=== PATIENT | female | born 1995 | race Caucasian/White ===

== ENCOUNTER 2020-06-29 05:23 | Emergency (ER) | payer OTHER, SELFPAY ==
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
== END 2020-06-29 05:40 | disposition left against medical advice (07) ==
PROVIDERS: Emergency Provider Emergency Medicine Emergency Medical Services
DX: R10.9 Unspecified abdominal pain (principal)

== ENCOUNTER 2020-07-01 02:27 | Emergency (ER) | payer OTHER, SELFPAY ==
[2020-07-01 02:38] VITALS: PULSE 88; PULSE 91; RESP 18; TEMP 36.7; O2SAT 96; O2SAT 98; BMI 18.5
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
[2020-07-01 02:57] VITALS: BP 102/56; PULSE 91; RESP 17; TEMP 36.7; O2SAT 98
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
[2020-07-01 04:00] VITALS: RESP 18
[2020-07-01 06:00] VITALS: BP 110/56; PULSE 68; RESP 18; TEMP 37.1; O2SAT 98
--- NOTE | 2020-07-01 07:04 | PC.NURSE ---
Report recieved. Pt currently sleeping, respirations even and unlabored, in no apparent distress. Pt waiting to be seen by N.
[2020-07-01 07:39] LABS: Glucose Urine UA NEG (NEG); Leukocyte Esterase Urine NEG (NEG); Nitrite Urine NEG (NEG); Specific Gravity - Urine 1.025 (1.005-1.025); Urine Blood NEG (NEG); Urine Ketones NEG (NEG); Urine Protein NEG (NEG-TRACE)
[2020-07-01 07:40] LABS: Appearance Urine CLOUDY; Color Urine YELLOW
[2020-07-01 07:41] LABS: UPreg QC Valid YES; Urine Pregnancy NEGATIVE (NEGATIVE)
[2020-07-01 08:05] LABS: Amphetamine Screen Urine Not Detected (Not Detect); Barbiturates, Urine Not Detected (Not Detect); Benzodiazepines Screen Urine Not Detected (Not Detect); Cannabinoid Screen Urine POSITIVE (Not Detect); Cocaine Screen Urine POSITIVE (Not Detect); Opiate Screen Urine POSITIVE (Not Detect); Phencyclidine Screen Urine Not Detected (Not Detect)
[2020-07-01 09:02] VITALS: BP 127/59; PULSE 90; RESP 18; TEMP 37.2; O2SAT 99
[2020-07-01 09:20] VITALS: BP 127/60; PULSE 90
[2020-07-01] MEDS: OXcarbazepine 300 MG TABLET PO (09:20)
[2020-07-01] MEDS: cloNIDine HCL 0.1 MG TABLET PO (09:20)
--- NOTE | 2020-07-01 10:40 | PC.NURSE ---
Pt asking when she will be seen, explained that N is reporting they are on their way. Pt stating that she only said she was suicidal so that she would have a place to sleep last night. Pt denying SI at this time.
[2020-07-01] MEDS: Nicotine 21 MG PATCH.TD24 TRANSDERMA (10:50)
== END 2020-07-01 14:24 | disposition home or self-care (01) ==
PROVIDERS: Emergency Provider Emergency Medicine
DX: F33.1 Major depressive disorder, recurrent, moderate (principal); R45.851 Suicidal ideations; F11.90 Opioid use, unspecified, uncomplicated; F17.200 Nicotine dependence, unspecified, uncomplicated; Z71.6 Tobacco abuse counseling; Z79.899 Other long term (current) drug therapy
CPT/HCPCS: 80307; 81003; 81025; 99285

== ENCOUNTER 2020-10-19 17:44 | Emergency (ER) | payer OTHER, SELFPAY ==
[2020-10-19 17:47] VITALS: BP 107/56; PULSE 90; RESP 16; TEMP 36.2; O2SAT 97; BMI 17.9
--- NOTE | 2020-10-19 17:58 | PC.NURSE ---
pt arrived, was registered and triaged and then states she does not want to wait and left without being seen.
== END 2020-10-19 17:59 | disposition left against medical advice (07) ==
LOC: HO.ED 17:57
PROVIDERS: Emergency Provider Internal Medicine; PCP Nurse Practitioner Family
DX: Z20.2 Contact with and (suspected) exposure to infections with a predominantly sexual mode of transmission (principal)
CPT/HCPCS: 99282

== ENCOUNTER 2021-05-08 21:14 | Emergency (ER) | payer OTHER, SELFPAY ==
[2021-05-08 22:28] VITALS: BP 108/53; PULSE 65; RESP 16; TEMP 36.2; O2SAT 97; BMI 23.4
[2021-05-08 22:47] LABS: Appearance Urine CLEAR; Color Urine YELLOW; Glucose Urine UA NEG (NEG); Leukocyte Esterase Urine TRACE (NEG); Nitrite Urine NEG (NEG); Specific Gravity - Urine >= 1.030 (1.005-1.025); UACC Culture Trigger YES; Urine Blood 3+ (NEG); Urine Ketones 5 MG/DL (NEG); Urine Protein 1+ MG/DL (NEG-TRACE)
[2021-05-08 23:08] LABS: Squamous Epithelial Cell Urine 2+ /LPF
[2021-05-08 23:09] LABS: Bacteria Urine TRACE /LPF
[2021-05-08 23:10] LABS: Mucus Urine TRACE /LPF
[2021-05-09] MEDS: cefTRIAXone sodium 500 MG, Lidocaine HCl 1 % MPF 1 ML IM (00:05)
[2021-05-09 01:42] LABS: CT PCR NOT DETECTED (Not Detect.); NG PCR DETECTED (Not Detect.)
--- NOTE | 2021-05-13 | ECG_ITS ---
Test Reason : MEDCLEARANCE Blood Pressure : / mmHG Vent. Rate : 078 BPM Atrial Rate : 078 BPM P-R Int : 132 ms QRS Dur : 098 ms QT Int : 366 ms P-R-T Axes : -16 079 048 degrees QTc Int : 417 ms Normal sinus rhythm Possible Lateral infarct (cited on or before 25-FEB-2020) Abnormal ECG When compared with ECG of 13-MAY-2021 14:10, Sinus rhythm has replaced Ectopic atrial rhythm Referred By: Chalo Beltran Electronically Signed By:JANAK FOLEY
--- NOTE | 2021-05-13 09:00 | ECG_ITS ---
Test Reason : MEDCLEARANCE Blood Pressure : / mmHG Vent. Rate : 077 BPM Atrial Rate : 077 BPM P-R Int : 128 ms QRS Dur : 096 ms QT Int : 368 ms P-R-T Axes : -51 081 056 degrees QTc Int : 416 ms Unusual P axis, possible ectopic atrial rhythm Possible Lateral infarct (cited on or before 25-FEB-2020) Abnormal ECG When compared with ECG of 25-FEB-2020 20:38, Ectopic atrial rhythm has replaced Sinus rhythm Referred By: Chalo Beltran Electronically Signed By:JANAK FOLEY
== END 2021-05-09 00:10 | disposition home or self-care (01) ==
PROVIDERS: Emergency Provider Internal Medicine
DX: R10.2 Pelvic and perineal pain (principal); Z20.2 Contact with and (suspected) exposure to infections with a predominantly sexual mode of transmission
CPT/HCPCS: 81001; 81003; 87086; 87491; 87591; 93005; 96372; 99284; J0696

== ENCOUNTER 2021-05-12 13:17 | Inpatient (IN) | payer OTHER, SELFPAY ==
[2021-05-12 14:17] VITALS: BMI 19.2
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
[2021-05-12 15:11] VITALS: BP 96/50; PULSE 75; RESP 16; TEMP 37.7; O2SAT 96
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
[2021-05-12 15:52] LABS: COVID-19 Test Negative (Negative); IDNOW Serial# 9DD0AD1C
--- NOTE | 2021-05-12 16:05 | ED_ITS ---
HPI - Psych General Chief Complaint: ETOH/Substance Use <PUSHPA Whaley - Last Filed: 05/13/21 01:20> Stated Complaint: ?Dehydrated <PUSHPA Whaley - Last Filed: 05/13/21 01:20> Time Seen by Provider: 05/12/21 14:56 <PUSHPA Whaley Last Filed: 05/13/21 01:20> Source: patient <PUSHPA Whaley - Last Filed: 05/13/21 01:20> Mode of arrival: ambulatory <PUSHPA Whaley Last Filed: 05/13/21 01:20> Limitations: no limitations <PUSHPA Whaley Last Filed: 05/13/21 01:20> History of Present Illness HPI Narrative: Patient sent by the grandmother to be evaluated for detox. Patient states she was sent for detox from heroin. Your states she was informed that patient is sent self-harm a threat to mother. Patient denies this. Patient denies any physical complaints. I was informed by calling PUSHPA Pollard the patient positive gonorrhea and has never been treated. Spoke with patient about history of gonorrhea patient unaware of the diagnosis and denies ever taking Macrobid or gonorrhea. Patient presently is asymptomatic. Patient denies any suicidal or homicidal ideation. <PUSHPA Whaley - Last Filed: 05/13/21 01:20> Related Data Home Medications: Previous Rx's Medication Instructions Recorded clonidine HCl 0.1 mg tablet 0.1 mg PO TID PRN 30 Days #90 tab 05/15/21 doxycycline hyclate 100 mg tablet 100 mg PO BID 5 Days #10 tab 05/15/21 hydroxyzine HCl 25 mg tablet 25 mg PO TID PRN 30 Days #90 tab 05/15/21 melatonin 3 mg tablet 9 mg PO BEDTIME 30 Days #90 tab 05/15/21 mirtazapine 15 mg tablet 15 mg PO BEDTIME 30 Days #30 tab 05/15/21 nitrofurantoin 100 mg PO BID 5 Days #10 cap 05/15/21 monohydrate/macrocrystals 100 mg capsule quetiapine 200 mg tablet 200 mg PO BEDTIME PRN 30 Days #30 05/15/21 tab trazodone 50 mg tablet 50 mg PO BEDTIME 30 Days #30 tab 05/15/21 <PUSHPA Whaley Last Filed: 05/13/21 01:20> Allergies/Adverse Reactions: Allergies Allergy/AdvReac Type Severity Reaction Status Date / Time orange [ORANGES] Allergy Intermediate HIVES Verified 07/01/20 02:36 seafood AdvReac Anaphylaxis Verified 07/01/20 02:36 <PUSHPA Whaley Last Filed: 05/13/21 01:20> Review of Systems Constitutional: Constitutional: Reports as per HPI and Reports no additional constitutional complaints <PUSHPA Whaley Last Filed: 05/13/21 01:20> Eyes: Eyes: Reports as per HPI and Reports no additional eye complaints <PUSHPA Whaley Last Filed: 05/13/21 01:20> ENT: Reports system reviewed and no additional complaints, except as documented and Reports as per HPI <PUSHPA Whaley Last Filed: 05/13/21 01:20> Cardiovascular: Cardiovascular: Reports as per HPI and Reports no additional cardiovascular complaints <PUSHPA Whaley Last Filed: 05/13/21 01:20> Respiratory: Respiratory: Reports as per HPI and Reports no additional respiratory complaints <PUSHPA Whaley Last Filed: 05/13/21 01:20> Gastrointestinal: Gastrointestinal: Reports as per HPI and Reports no additional gastrointestinal complaints <PUSHPA Whaley Last Filed: 05/13/21 01:20> Genitourinary: Genitourinary: Reports no additional female genitourinary complaints and Reports as per HPI <PUSHPA Whaley Last Filed: 05/13/21 01:20> Musculoskeletal: Musculoskeletal: Reports no additional musculoskeletal complaints and Reports as per HPI <PUSHPA Whaley Last Filed: 05/13/21 01:20> Neurologic: Reports system reviewed and no additional complaints, except as documented and Reports as per HPI <PUSHPA Whaley Last Filed: 05/13/21 01:20> Psychiatric: Psychiatric: Reports no additional psychiatric complaints and Reports as per HPI <PUSHPA Whaley Last Filed: 05/13/21 01:20> PMFSH Past Medical History Medical History: Medical History Anxiety Asthma Bipolar affective Depression PTSD (post-traumatic stress disorder) <PUSHPA Whaley - Last Filed: 05/13/21 01:20> Social History Social History: Social History Household Members: Significant Other Household Members Other:: fiance Housing: Homeless Housing Other:: I live with my fivianca. We don't have an apartment. I am not homeless Do you presently have visiting nurse or other home services: No Alcohol intake: never Patient Tobacco Use Status: Current everyday Tobacco user Tobacco use type: Cigarette Cigarette Packs Per Day: 1 Cigarettes Per Day: 20.0 Years Smoked: 11 Smoked in Last 30 Days: Yes Patient Interested in Nicotine Replacement: Yes Patient Given Instructions on How to Stop Smoking: Yes Date Education Initiated: 05/13/21 Second Hand Smoke Exposure: Yes Use of substances other than those prescribed or required for medical reasons: No Substance Use Type: Crack/Cocaine, Heroin and Marijuana Substance Use Frequency: Occasionally Last Used Substance: Days (ago) Last Used Substance Other:: 2 days ago used 7 bags of heroin Currently Displaying Signs/Symptoms of Drug Intoxication Withdrawal: No Other Past Substance Use Problem:: 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 If so, by whom?: No Do you feel safe in your current relationship?: Yes Is there a partner from a previous relationship who is making you feel unsafe now?: No Are you made to feel afraid or neglected: No Spiritual Healthcare Practices: [facility] Advance Directives: No Advance Directives Information Provided: No Do you have thoughts of harming others: None Do you have a plan to hurt others: No Plan Recently lost weight without trying: Unsure How much weight loss: Unsure Eating poorly because of decreased appetite: Yes Nutrition screen score: 5 Patient : No : No Poor oral hygiene: No service: No Sexual orientation: Don't Know <PUSHPA Whaley - Last Filed: 05/13/21 01:20> Physical Exam Vital Signs: Vital Signs: Last Vital Signs Temp 98.5 F 05/15/21 10:30 Pulse 98 05/15/21 10:30 Resp 17 05/15/21 10:30 BP 115/57 L 05/15/21 10:30 Pulse Ox 100 05/15/21 10:30 Body Mass Index 19.2 <PUSHPA Whaley - Last Filed: 05/13/21 01:20> Vital Signs: Last Vital Signs Temp 98.5 F 05/15/21 10:30 Pulse 98 05/15/21 10:30 Resp 17 05/15/21 10:30 BP 115/57 L 05/15/21 10:30 Pulse Ox 100 05/15/21 10:30 Body Mass Index 19.2 <Allan Goodman MD - Last Filed: 05/20/21 17:22> Vital Signs: Last Vital Signs Temp 98.5 F 05/15/21 10:30 Pulse 98 05/15/21 10:30 Resp 17 05/15/21 10:30 BP 115/57 L 05/15/21 10:30 Pulse Ox 100 05/15/21 10:30 Body Mass Index 19.2 <Candace Mcknight DO - Last Filed: 05/13/21 07:56> Const: General: cooperative, healthy appearing, comfortable, no acute distress, well developed, alert, awake and Physically active <PUSHPA Whaley - Last Filed: 05/13/21 01:20> Orientation/consciousness: patient oriented x3 <PUSHPA Whaley Last Filed: 05/13/21 01:20> HENMT: Head: Yes normal to inspection, Yes No palpable skull fracture present, Yes normocephalic, Yes atraumatic and No abrasion <PUSHPA Whaley - Last Filed: 05/13/21 01:20> Eyes: General: appearance normal, both eyes and all related structures <PUSHPA Whaley Last Filed: 05/13/21 01:20> Neck: Neck: Yes normal visual inspection, Yes full ROM, Yes no lymphadenopathy, Yes no meningeal signs, Yes trachea midline, Yes supple and No tender <PUSHPA Whaley Last Filed: 05/13/21 01:20> Chest: Chest palpation & inspection: normal inspection of the chest and normal palpation of entire chest wall <PUSHPA Whaley Last Filed: 05/13/21 01:20> Resp: Effort & Inspection: normal respiratory effort and able to speak in complete sentences <PUSHPA Whaley Last Filed: 05/13/21 01:20> Cardio: Jugular venous distension: no JVD <PUSHPA Whaley Last Filed: 05/13/21 01:20> Heart sounds: S1 normal heart sound present and S2 normal heart sound present <PUSHPA Whaley Last Filed: 05/13/21 01:20> GI: Inspection: Yes normal to inspection and No abdominal wall ecchymosis <PUSHPA Whaley Last Filed: 05/13/21 01:20> Palpation (GI): Soft to palpation, not firm, nontender, no guarding and not rigid <PUSHPA Whaley Last Filed: 05/13/21 01:20> : General: No CVA tenderness and Yes no CVA tenderness <PUSHPA Whaley Last Filed: 05/13/21 01:20> Back/Spine/Pelvis: Back: no CVA tenderness, No CVA tenderness and No back tenderness <PUSHPA Whaley Last Filed: 05/13/21 01:20> Skin: General skin exam: no rashes or lesions noted and elasticity normal <PUSHPA Whaley Last Filed: 05/13/21 01:20> Neuro: General: patient oriented x3, gait normal, no meningeal signs and CN's II-XI intact bilaterally <PUSHPA Whaley Last Filed: 05/13/21 01:20> Cranial nerves: Yes CN's II-XII intact bilaterally <PUSHPA Whaley Last Filed: 05/13/21 01:20> Extrem: General: Yes normal to inspection and Yes full ROM <PUSHPA Whaley Last Filed: 05/13/21 01:20> Psych: Appearance: grossly normal, well kempt and not disheveled <PUSHPA Whaley Last Filed: 05/13/21 01:20> Course Course Course Narrative: UA DS ordered. Patient to have COVID swab. Return crisis sent. <PUSHPA Whaley Last Filed: 05/13/21 01:20> Reevaluation(s) Reevaluation #1: head field hockey coach went to speak to patient, but patient refused to be valuable by silver recovery operator and requesting [facility] evaluation. <PUSHPA Whaley Last Filed: 05/13/21 01:20> Time: 18:15 <PUSHPA Whaley - Last Filed: 05/13/21 01:20> Reevaluation #2: Patient evaluated by [facility] recommends inpatient psych admission. Labs to be ordered <PUSHPA Whaley - Last Filed: 05/13/21 01:20> Time: 01:18 <PUSHPA Whaley - Last Filed: 05/13/21 01:20> MDM - Psych MDM Narrative Medical decision making narrative: Depression. <PUSHPA Whaley - Last Filed: 05/13/21 01:20> Lab Data Labs: Lab Results 05/12/21 05/12/21 05/12/21 Range/Units 15:25 19:13 19:13 Urine Color YELLOW Urine Appearance HAZY Urine pH 6.0 (5.0-8.0) Ur Specific [place] >= 1.030 H (1.005-1.025) Urine Protein NEG (NEG-TRACE) MG/DL Urine Glucose (UA) NEG (NEG) MG/DL Urine Ketones NEG (NEG) MG/DL Urine Blood NEG (NEG) Urine Nitrite NEG (NEG) Ur Leukocyte Esterase NEG (NEG) Urine Test (NEGATIVE) Urine Opiates Screen Not Detected (Not Detect) Urine Fentanyl Screen POSITIVE H (Not Detect) Ur Barbiturates Screen Not Detected (Not Detect) Ur Phencyclidine Scrn Not Detected (Not Detect) Ur Amphetamines Screen Not Detected (Not Detect) U Benzodiazepines Scrn Not Detected (Not Detect) Urine Cocaine Screen POSITIVE H (Not Detect) U Marijuana (THC) Screen POSITIVE H (Not Detect) COVID-19 (KAYLAN) Negative (Negative) COVID-19 Clin Com See Note 05/12/21 Range/Units 19:13 Urine Color Urine Appearance Urine pH (5.0-8.0) Ur Specific [place] (1.005-1.025) Urine Protein (NEG-TRACE) MG/DL Urine Glucose (UA) (NEG) MG/DL Urine Ketones (NEG) MG/DL Urine Blood (NEG) Urine Nitrite (NEG) Ur Leukocyte Esterase (NEG) Urine Test NEGATIVE (NEGATIVE) Urine Opiates Screen (Not Detect) Urine Fentanyl Screen (Not Detect) Ur Barbiturates Screen (Not Detect) Ur Phencyclidine Scrn (Not Detect) Ur Amphetamines Screen (Not Detect) U Benzodiazepines Scrn (Not Detect) Urine Cocaine Screen (Not Detect) U Marijuana (THC) Screen (Not Detect) COVID-19 (KAYLAN) (Negative) COVID-19 Clin Com <PUSHPA Whaley - Last Filed: 05/13/21 01:20> Lab Results 05/12/21 05/12/21 05/12/21 Range/Units 15:25 19:13 19:13 Urine Color YELLOW Urine Appearance HAZY Urine pH 6.0 (5.0-8.0) Ur Specific [place] >= 1.030 H (1.005-1.025) Urine Protein NEG (NEG-TRACE) MG/DL Urine Glucose (UA) NEG (NEG) MG/DL Urine Ketones NEG (NEG) MG/DL Urine Blood NEG (NEG) Urine Nitrite NEG (NEG) Ur Leukocyte Esterase NEG (NEG) Urine Test (NEGATIVE) Urine Opiates Screen Not Detected (Not Detect) Urine Fentanyl Screen POSITIVE H (Not Detect) Ur Barbiturates Screen Not Detected (Not Detect) Ur Phencyclidine Scrn Not Detected (Not Detect) Ur Amphetamines Screen Not Detected (Not Detect) U Benzodiazepines Scrn Not Detected (Not Detect) Urine Cocaine Screen POSITIVE H (Not Detect) U Marijuana (THC) Screen POSITIVE H (Not Detect) COVID-19 (KAYLAN) Negative (Negative) COVID-19 Clin Com See Note 05/12/21 Range/Units 19:13 Urine Color Urine Appearance Urine pH (5.0-8.0) Ur Specific [place] (1.005-1.025) Urine Protein (NEG-TRACE) MG/DL Urine Glucose (UA) (NEG) MG/DL Urine Ketones (NEG) MG/DL Urine Blood (NEG) Urine Nitrite (NEG) Ur Leukocyte Esterase (NEG) Urine Test NEGATIVE (NEGATIVE) Urine Opiates Screen (Not Detect) Urine Fentanyl Screen (Not Detect) Ur Barbiturates Screen (Not Detect) Ur Phencyclidine Scrn (Not Detect) Ur Amphetamines Screen (Not Detect) U Benzodiazepines Scrn (Not Detect) Urine Cocaine Screen (Not Detect) U Marijuana (THC) Screen (Not Detect) COVID-19 (KAYLAN) (Negative) COVID-19 Clin Com <Allan Goodman MD - Last Filed: 05/20/21 17:22> Lab Results 05/12/21 05/12/21 05/12/21 Range/Units 15:25 19:13 19:13 Urine Color YELLOW Urine Appearance HAZY Urine pH 6.0 (5.0-8.0) Ur Specific [place] >= 1.030 H (1.005-1.025) Urine Protein NEG (NEG-TRACE) MG/DL Urine Glucose (UA) NEG (NEG) MG/DL Urine Ketones NEG (NEG) MG/DL Urine Blood NEG (NEG) Urine Nitrite NEG (NEG) Ur Leukocyte Esterase NEG (NEG) Urine Test (NEGATIVE) Urine Opiates Screen Not Detected (Not Detect) Urine Fentanyl Screen POSITIVE H (Not Detect) Ur Barbiturates Screen Not Detected (Not Detect) Ur Phencyclidine Scrn Not Detected (Not Detect) Ur Amphetamines Screen Not Detected (Not Detect) U Benzodiazepines Scrn Not Detected (Not Detect) Urine Cocaine Screen POSITIVE H (Not Detect) U Marijuana (THC) Screen POSITIVE H (Not Detect) COVID-19 (KAYLAN) Negative (Negative) COVID-19 Clin Com See Note 05/12/21 Range/Units 19:13 Urine Color Urine Appearance Urine pH (5.0-8.0) Ur Specific [place] (1.005-1.025) Urine Protein (NEG-TRACE) MG/DL Urine Glucose (UA) (NEG) MG/DL Urine Ketones (NEG) MG/DL Urine Blood (NEG) Urine Nitrite (NEG) Ur Leukocyte Esterase (NEG) Urine Test NEGATIVE (NEGATIVE) Urine Opiates Screen (Not Detect) Urine Fentanyl Screen (Not Detect) Ur Barbiturates Screen (Not Detect) Ur Phencyclidine Scrn (Not Detect) Ur Amphetamines Screen (Not Detect) U Benzodiazepines Scrn (Not Detect) Urine Cocaine Screen (Not Detect) U Marijuana (THC) Screen (Not Detect) COVID-19 (KAYLAN) (Negative) COVID-19 Clin Com <Candace Mcknight DO - Last Filed: 05/13/21 07:56> Discharge Plan Discharge Clinical Impression: Depression <PUSHPA Whaley - Last Filed: 05/13/21 01:20> Patient Disposition: Admitted As Inpatient <PUSHPA Whaely - Last Filed: 05/13/21 01:20> Interventions: Admission Worksheet (ED) Last Done: 05/13/21 14:45 <PUSHPA Whaley - Last Filed: 05/13/21 01:20> Discharge Date/Time: 05/13/21 14:46 <PUSHPA Whaley - Last Filed: 05/13/21 01:20>
--- NOTE | 2021-05-12 16:21 | PC.NURSE ---
patient using foul language often while letting her needs be known. patient states she never made self harming statements to parent.
--- NOTE | 2021-05-12 17:16 | MHC.RECOVSUP ---
? Reason for consult Support o Current location: [facility] o Identified substance use concern: Herion <del>-</del> <del>Withdrawal</del> <del>-</del> <del>Seeking</del> <del>ATS</del> <del>(detox)</del> - Support ? Intervention: <del>o</del> <del>ATS</del> <del>bed</del> <del>search</del> <del>started/completed/in</del> <del>process</del> <del>o</del> <del>MAT</del> <del>started</del> <del>or</del> <del>to</del> <del>be</del> <del>started</del> <del>o</del> <del>Community</del> <del>resources</del> <del>provided</del> <del>o</del> <del>Harm</del> <del>reduction</del> <del>discussion</del> ? Plan: <del>o</del> <del>Referral</del> <del>to</del> <del>[facility]</del> <del>o</del> <del>Bed</del> <del>search</del> <del>in</del> <del>progress</del> <del>to</del> <del>o</del> <del>Follow</del> <del>up</del> <del>tomorrow</del> <del>o</del> <del>Patient</del> <del>awaiting</del> <del>crisis</del> <del>evaluation</del> <del>o</del> <del>Patient</del> <del>to</del> <del>follow</del> <del>up</del> <del>with</del> <del>[facility]</del> <del>after</del> <del>discharge</del> ? Additional information: Met with Patient and Refuse Any Service.
--- NOTE | 2021-05-12 17:45 | PC.NURSE ---
patients grandmother called for info, patient declined t/w from speaking to gradmother.
--- NOTE | 2021-05-12 18:21 | PC.NURSE ---
sent second copy of [facility] referral b/c i saw no evidence in my email that first copy was sent
[2021-05-12 19:21] LABS: Appearance Urine HAZY; Color Urine YELLOW; Glucose Urine UA NEG (NEG); Leukocyte Esterase Urine NEG (NEG); Nitrite Urine NEG (NEG); Specific Gravity - Urine >= 1.030 (1.005-1.025); Urine Blood NEG (NEG); Urine Ketones NEG (NEG); Urine Protein NEG (NEG-TRACE)
[2021-05-12 19:24] LABS: UPreg QC Valid YES; Urine Pregnancy NEGATIVE (NEGATIVE)
[2021-05-12 19:46] LABS: Amphetamine Screen Urine Not Detected (Not Detect); Barbiturates, Urine Not Detected (Not Detect); Benzodiazepines Screen Urine Not Detected (Not Detect); Cannabinoid Screen Urine POSITIVE (Not Detect); Cocaine Screen Urine POSITIVE (Not Detect); Fentanyl, urine POSITIVE (Not Detect); Opiate Screen Urine Not Detected (Not Detect); Phencyclidine Screen Urine Not Detected (Not Detect)
[2021-05-13] MEDS: Nitrofurantoin Monohyd/M-Cryst 100 MG CAPSULE PO ×3 (00:14→21:27)
[2021-05-13 06:23] VITALS: BP 106/47; PULSE 73; RESP 15; O2SAT 100
--- NOTE | 2021-05-13 06:34 | PC.NURSE ---
Patient slept through the night, no distress observed/reported, refused blood draw, patient is on antibiotic for positive Gonorrhea and chlamydia, patient was assessed by N, disposition is section 12 inpatient bed search, patient is not happy with her disposition, will continue to monitor.
[2021-05-13 08:42] VITALS: BP 113/63; PULSE 71; RESP 14; TEMP 36.7; O2SAT 97
[2021-05-13] MEDS: LORazepam 1 MG TABLET 2 MG PO ×2 (09:11→14:22)
--- NOTE | 2021-05-13 09:18 | PC.NURSE ---
PT DENIES MAKING SI STATEMENTS TO FAMILY AND IS CURRENTLY SEAKING DETOX
[2021-05-13] MEDS: Acetaminophen 325 MG TABLET 650 MG PO (15:16)
[2021-05-13 15:17] VITALS: BP 112/60; PULSE 95
[2021-05-13] MEDS: hydrOXYzine HCL 25 MG TABLET PO (15:17)
[2021-05-13] MEDS: cloNIDine HCL 0.1 MG TABLET PO (15:17)
[2021-05-13 15:22] VITALS: BP 112/60; PULSE 95; RESP 16; TEMP 36.7; O2SAT 99
[2021-05-13 16:00] VITALS: BP 112/60; PULSE 92; RESP 16; TEMP 36.9; O2SAT 99
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
[2021-05-13] MEDS: Melatonin 3 MG TABLET 9 MG PO (21:28)
[2021-05-13] MEDS: traZODone HCL 50 MG TABLET PO (21:28)
[2021-05-13] MEDS: Mirtazapine 15 MG TABLET PO (21:28)
[2021-05-13] MEDS: QUEtiapine Fumarate 200 MG TABLET PO (21:28)
[2021-05-13 21:38] VITALS: BP 116/56; PULSE 79; TEMP 36.7
[2021-05-14] VITALS (8 sets, daily range): BP systolic 98–112; BP diastolic 52–62; PULSE 72–118; RESP 16–18; TEMP 36.9–37.1; O2SAT 99–100
[2021-05-14] MEDS: cloNIDine HCL 0.1 MG TABLET PO ×4 (04:45→20:07)
[2021-05-14] MEDS: Nicotine 21 MG PATCH.TD24 TRANSDERMA (08:53)
[2021-05-14] MEDS: Nitrofurantoin Monohyd/M-Cryst 100 MG CAPSULE PO ×2 (08:53→20:03)
[2021-05-14] MEDS: Acetaminophen 325 MG TABLET 650 MG PO ×2 (10:00→18:22)
[2021-05-14] MEDS: Loperamide HCl 2 MG CAPSULE PO (10:01)
[2021-05-14] MEDS: methADONE HCl 20 MG/2 ML ORAL.CONC 10 MG PO (14:44)
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
[2021-05-14] MEDS: Mirtazapine 15 MG TABLET PO (20:03)
[2021-05-14] MEDS: Melatonin 3 MG TABLET 9 MG PO (20:03)
[2021-05-14] MEDS: QUEtiapine Fumarate 200 MG TABLET PO (20:07)
[2021-05-14] MEDS: hydrOXYzine HCL 25 MG TABLET PO (20:07)
[2021-05-15] MEDS: methADONE HCl 20 MG/2 ML ORAL.CONC 10 MG PO (10:18)
[2021-05-15] MEDS: Nitrofurantoin Monohyd/M-Cryst 100 MG CAPSULE PO (10:18)
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
[2021-05-15 10:30] VITALS: BP 115/57; PULSE 98; RESP 17; TEMP 36.9; O2SAT 100
--- NOTE | 2021-05-15 10:59 | MHC.RECOVRN ---
T/w met with pt in 306 after pt had been started on methadone on 05/14 by psychiatry. Pt reports positive effect and would like to continue. Pt educated regarding other MOUD, reports having been on methadone and Suboxone in the past. At this time, pt would like to continue methadone. Pt reports using heroin, IV, 3 bundles daily as well as cocaine, unknown amount. Pt would like to be linked to [facility] OTP. MONISHA signed. T/w will send referral.
--- NOTE | 2021-05-15 11:39 | MHC.RECOVRN ---
Pt unable to locate ID for OTP referral. OTP referral not able to be sent without ID. Pt and RN aware.
--- NOTE | 2021-05-15 12:13 | PC.NURSE ---
PT aware and ready for discharge. PT with bright affect, pt is future focused, denies SI/HI, denies hallucinations. PT plans on continuing with methadone, reporting that she is serious about her recovery this time . Discharge paperwork discussed, all questions answered. PT states she is going to make an appointment with her PCP. PT belongings returned. PT ambulated off unit with steady gait.
== END 2021-05-15 12:13 | disposition home or self-care (01) | DRG 754 ==
LOC: HO.ED 05-13 14:45 → HO.PADLT16 05-13 14:49
PROVIDERS: Physician Assistant; Registered Nurse; Admitting Provider Psychiatry & Neurology Psychiatry; Emergency Provider Emergency Medicine; PCP Nurse Practitioner Family; Visit Provider Psychiatry & Neurology Psychiatry
DX: F32.9 Major depressive disorder, single episode, unspecified (principal); R45.851 Suicidal ideations; F14.10 Cocaine abuse, uncomplicated; F17.210 Nicotine dependence, cigarettes, uncomplicated; F11.10 Opioid abuse, uncomplicated; F43.10 Post-traumatic stress disorder, unspecified; Z71.6 Tobacco abuse counseling; Z20.822 Contact with and (suspected) exposure to COVID-19; Z79.899 Other long term (current) drug therapy
CPT/HCPCS: 36415; 80307; 81003; 81025; 87635; 99285

== ENCOUNTER 2021-08-25 10:19 | Emergency (ER) | payer OTHER, SELFPAY ==
[2021-08-25 11:53] VITALS: BP 100/64; PULSE 105; RESP 19; TEMP 37; O2SAT 98; BMI 21.4
--- NOTE | 2021-08-25 12:15 | PC.NURSE ---
PT SAYING SHE NEEDS TO LEAVE AND WALK DOWN THE STREET TO FIND HER [employer]LE[employer]ER AND HER BOYFRIEND. PT ASKED TO WAIT IN ROOM, PROVIDER IS COMING TO SEE HER, VISITORS CAN WAIT IN WAITING ROOM. PT STATING THATS IT IM LEAVING I WILL GO TO [facility] THEN. PT ENCOURAGED TO STAY FOR TREATMENT.
== END 2021-08-25 12:19 | disposition left against medical advice (07) ==
PROVIDERS: Emergency Provider Emergency Medicine; PCP Nurse Practitioner Family
DX: L08.9 Local infection of the skin and subcutaneous tissue, unspecified (principal)
CPT/HCPCS: 99281

== ENCOUNTER 2021-08-25 16:56 | Emergency (ER) | payer OTHER, SELFPAY ==
--- NOTE | ~2021-08-25 | XR_ITS ---
EXAMINATION: XR FINGER, LEFT CLINICAL INFORMATION: Rule out osteomyelitis or fracture in the left third digit. COMPARISON: Radiograph of the left hand dated from 02/25/2020. TECHNIQUE: Three views of the left long finger. FINDINGS: There is soft tissue thickening around the third digit without evidence of acute fractures, subcutaneous air nor unexpected radiopaque foreign bodies. Redemonstration of a negative ulnar variance. Joint alignment is anatomic. XR/XR finger LT min 2V IMPRESSION: No acute fractures or malalignment. No cortical irregularities or erosions to suspect osteomyelitis. No unexpected radiopaque foreign bodies.
[2021-08-25 17:41] VITALS: BP 104/62; PULSE 83; RESP 18; TEMP 36.6; O2SAT 99; BMI 21.4
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
[2021-08-25 19:55] VITALS: BP 111/65; PULSE 102; RESP 18; TEMP 36.9; O2SAT 99
--- NOTE | 2021-08-25 20:15 | PC.NURSE ---
PT DECLINED I/D, LABS. STATES [facility] IS HERE, LIVES WITH GRANDPARENTS AND TOLD THEM SHE WAS ON HER WAY HOME AND IS AFRAID SHE WILL BE KICKED OUT. PT STATES WILL RETURN TOMORROW AT 6AM. PT LEAVING AMA.
== END 2021-08-25 20:15 | disposition left against medical advice (07) ==
PROVIDERS: Emergency Provider Emergency Medicine Emergency Medical Services; PCP Nurse Practitioner Family
DX: L08.9 Local infection of the skin and subcutaneous tissue, unspecified (principal); M79.645 Pain in left finger(s); F17.200 Nicotine dependence, unspecified, uncomplicated; F12.90 Cannabis use, unspecified, uncomplicated; F11.99 Opioid use, unspecified with unspecified opioid-induced disorder; F14.10 Cocaine abuse, uncomplicated
CPT/HCPCS: 73140; 99283

== ENCOUNTER 2021-08-26 15:56 | Inpatient (IN) | payer OTHER, SELFPAY ==
[2021-08-26 18:28] VITALS: BP 115/67; PULSE 78; RESP 18; TEMP 36.4; O2SAT 95; BMI 21.4
[2021-08-26 19:53] LABS: Basophils Absolute Auto 0.1 X10*3/uL (0.0-0.2); Basophils Percent Auto 0.5 % (0-2); Eosinophils Absolute Auto 0.1 X10*3/uL (0.0-0.4); Hemoglobin 12.8 g/dl (12.0-16.0); Imm Gran Abs Auto 0.02 X10*3/uL (0.00-0.03); Imm Gran Pct Auto 0.2 % (0.0-0.4); Lymphocytes Absolute Auto 2.6 X10*3/uL (1.2-4.9); Lymphocytes Percent Auto 24.4 % (20-40); MANUAL DIFF FLAG NO; Mean Corpuscular HGB Conc 32.8 g/dl (31.0-35.0); Mean Corpuscular Hemoglobin 30.5 pg (27.0-33.0); Mean Corpuscular Volume 93.1 fL (80.0-98.0); Mean Platelet Volume 9.1 fL (9.4-12.3); Monocytes Absolute Auto 0.7 X10*3/uL (0.1-1.2); Monocytes Percent Auto 6.1 % (2-11); Neutrophils Absolute Auto 7.3 x10*3/uL (2.0-8.3); Neutrophils Percent Auto 67.8 % (45-73); Platelet Count 380 X10*3/uL (160-400); Red Blood Count 4.19 X10*6/uL (4.20-5.50); Red Cell Distribution Width 12.7 % (11.0-16.0); White Blood Count 10.8 X10*3/uL (4.8-10.8)
[2021-08-26 20:07] LABS: COVID-19 Test Negative (Negative)
[2021-08-26 20:10] LABS: Lactic Acid 1.1 mmol/L (0.5-2.0)
[2021-08-26 20:16] LABS: Alanine Aminotransferase 75 U/L (0-31); Albumin Level 3.9 g/dL (3.5-5.0); Alkaline Phosphatase 69 U/L (39-117); Anion Gap 12 (12-20); Aspartate Amino Transferase 49 U/L (5-31); Bilirubin Direct < 0.2 mg/dL (0.0-0.5); Bilirubin Total < 0.2 mg/dL (0.0-1.0); Blood Urea Nitrogen 17 mg/dL (9-16); C Reactive Protein 0.46 mg/dL (< or = 0.50); Calcium 9.4 mg/dL (8.4-10.2); Carbon Dioxide 28 mmol/L (22-29); Chloride 103 mmol/L (96-108); Creatinine Clr Calc Pharmacy 103.8; Estimated Glomerular Filt Rate > 60; Glucose Random 87 mg/dL (60-115); Magnesium 2.1 mg/dL (1.6-2.6); Sodium 139 mmol/L (135-145); Total Protein 7.8 g/dL (6.5-8.0)
[2021-08-26 20:29] LABS: Erythrocyte Sedimentation Rate 26 MM/HR (0-20)
[2021-08-26] MEDS: Lidocaine HCl 2 % MPF 5 ML VIAL INFILTRATI (22:05)
[2021-08-26] MEDS: Acetaminophen 325 MG TABLET 975 MG PO (22:17)
[2021-08-26] MEDS: LORazepam 1 MG TABLET PO (22:17)
[2021-08-26] MEDS: Ibuprofen 600 MG TABLET PO (22:17)
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
--- NOTE | 2021-08-26 23:07 | PM.EVENT ---
Event Note Date of Service: 08/26/21 Event Note: 26 yo with worsening finger pain and swelling0 I&D done in ED with purulent drainage. -will admit to Dr Hansen -NPO after midnight incase she needs further surgical intervention -cultures sent from I&D in the ED -begin IV abx
[2021-08-26 23:09] LABS: Appearance Urine CLEAR; Color Urine YELLOW; Glucose Urine UA NEG (NEG); Leukocyte Esterase Urine NEG (NEG); Nitrite Urine NEG (NEG); Specific Gravity - Urine 1.025 (1.005-1.025); Urine Blood NEG (NEG); Urine Ketones NEG (NEG); Urine Protein NEG (NEG-TRACE)
[2021-08-26 23:12] LABS: UPreg QC Valid YES; Urine Pregnancy NEGATIVE (NEGATIVE)
[2021-08-26 23:24] LABS: Amphetamine Screen Urine Not Detected (Not Detect); Barbiturates, Urine Not Detected (Not Detect); Benzodiazepines Screen Urine Not Detected (Not Detect); Cannabinoid Screen Urine POSITIVE (Not Detect); Cocaine Screen Urine POSITIVE (Not Detect); Fentanyl, urine POSITIVE (Not Detect); Opiate Screen Urine POSITIVE (Not Detect); Phencyclidine Screen Urine Not Detected (Not Detect)
[2021-08-27] VITALS (12 sets, daily range): BP systolic 104–126; BP diastolic 48–78; PULSE 77–89; RESP 16; TEMP 36.1–36.4; O2SAT 98–99
--- NOTE | 2021-08-27 00:46 | PC.NURSE ---
Addendum entered by Zahraa Gilman 08/27/21 00:47: CARE TRANSFERED TO DYLLAN SAUER RN. Original Note: PT MOVED TO ED15, REPORT GIVEN AND CARE TRANSFERED.
[2021-08-27] MEDS: 0.9 % Sodium Chloride 1,000 ML 999 ML IVCONT (00:55)
[2021-08-27] MEDS: Piperacillin Sodium/Tazobactam 3.375 GM in 0.9 % Sodium Chloride 50 ML IV (00:57)
[2021-08-27] MEDS: Dextrose 5 % and 0.45 % NaCl 1,000 ML 100 ML IVCONT (02:10)
[2021-08-27 03:53] LABS: CT PCR NOT DETECTED (Not Detect.); NG PCR NOT DETECTED (Not Detect.)
[2021-08-27] MEDS: 0.9 % Sodium Chloride Flush 3 ML SYRINGE IVFLUSH (07:52)
--- NOTE | 2021-08-27 07:57 | PC.NURSE ---
patient refusing blood work to be drawn at this time. patient states maybe later I will let them do it not right now . informed patient to let RN know when she is ready to have labs drawn.
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
[2021-08-27] MEDS: vancomycin HCL 1,250 MG in 0.9 % Sodium Chloride 250 ML 166.67 MG IV (09:09)
--- NOTE | 2021-08-27 10:01 | HO.ANESPROP2 ---
PMF Active Problems Active Problems: All Active Problems (Updated 08/27/21 @ 09:26 by Pam Lion PA-C) Finger infection (Acute) Flexor tenosynovitis of finger (Acute) Depression (Acute) Opioid use disorder (Acute) Cocaine use disorder (Acute) Past Medical History Medical History Anxiety Asthma Bipolar affective Depression PTSD (post-traumatic stress disorder) Functional capacity: independent ambulation Patient : No Family History Family history of problems with anesthesia: No Surgical History History of Problems with Anesthesia: No Social History Social History Household Members: Significant Other Household Members Other:: fiance Housing: Homeless Housing Other:: I live with my fiance. We don't have an apartment. I am not homeless Do you presently have visiting nurse or other home services: No Alcohol intake: never Patient Tobacco Use Status: Current everyday Tobacco user Tobacco use type: Cigarette Cigarette Packs Per Day: 1 Cigarettes Per Day: 20.0 Years Smoked: 11 Second Hand Smoke Exposure: Yes Use of substances other than those prescribed or required for medical reasons: Yes Substance Use Type: Crack/Cocaine, Heroin and Marijuana Are you DNR?: No Advance Directives: No Advance Directives Information Provided: No Patient : No service: No Sexual orientation: Don't Know Meds Allergies Allergy/AdvReac Type Severity Reaction Status Date / Time orange [ORANGES] Allergy Intermediate HIVES Verified 08/26/21 18:27 Sulfa (Sulfonamide Allergy Rash Verified 08/26/21 18:28 Antibiotics) seafood AdvReac Anaphylaxis Verified 08/26/21 18:27 Active Medications: Current Medications Dextrose/Sodium Chloride (D51/2ns) 1,000 mls @ 100 mls/hr IVCONT .Q10H [facility] Last Admin: 08/27/21 02:10 Dose: 100 mls/hr Documented by: Vancomycin HCl 1,000 mg/ (Sodium Chloride) 270 mls @ 270 mls/hr IV Q12H [facility] Pharmacy Consult (Consult Rx Perform Med Rec) 1 each MISCELLANE ONCE PRN PRN Reason: Consult order Pharmacy Consult (Consult Rx Vancomycin Dosing) 1 each MISCELLANE DAILY PRN PRN Reason: Consult order Sodium Chloride (0.9 % Sodium Chloride Flush 3 Ml Syringe) 3 ml IVFLUSH QSHIFT [facility] Last Admin: 08/27/21 07:52 Dose: 3 ml Documented by: Home Medications Medication Instructions Recorded Confirmed Last Taken Type clindamycin HCl 150 mg capsule 1 cap PO TID 08/27/21 08/27/21 Unknown History ibuprofen 600 mg tablet 1 tab PO TID PRN 08/27/21 08/27/21 Unknown History Exam Exam Date and Time: August 27, 2021 1001 Height,Weight and Vital Signs: Height 5 ft Weight 49.895 kg Last Vital Signs Temp 97.5 F 08/26/21 18:28 Pulse 88 08/27/21 01:08 Resp 16 08/27/21 06:36 BP 104/48 L 08/27/21 01:08 Pulse Ox 99 08/27/21 01:08 Pertinent Lab Results Pertinent Lab Results: Laboratory Tests 08/26/21 08/26/21 08/26/21 19:44 19:45 19:45 WBC 10.8 RBC 4.19 L Hgb 12.8 Hct 39.0 MCV 93.1 MCH 30.5 MCHC 32.8 RDW 12.7 Plt Count 380 MPV 9.1 L Immature Gran % (Auto) 0.2 Neut % (Auto) 67.8 Lymph % (Auto) 24.4 [place] % (Auto) 6.1 Eos % (Auto) 1.0 Baso % (Auto) 0.5 Lymph # (Auto) 2.6 [place] # (Auto) 0.7 Eos # (Auto) 0.1 Baso # (Auto) 0.1 Abs Immat Gran (auto) 0.02 Absolute Neuts (auto) 7.3 Absolute Nucleated RBC 0.000 Nucleated RBC % (auto) 0.0 ESR 26 H Sodium Potassium Chloride Carbon Dioxide Anion Gap BUN Creatinine Estim Creat Clear Calc Estimated GFR Random Glucose Lactic Acid 1.1 Calcium Magnesium Total Bilirubin Direct Bilirubin AST ALT Alkaline Phosphatase Total Creatine Kinase C-Reactive Protein Total Protein Albumin Urine Color Urine Appearance Urine pH Ur Specific [place] Urine Protein Urine Glucose (UA) Urine Ketones Urine Blood Urine Nitrite Ur Leukocyte Esterase Urine Test Urine Opiates Screen Urine Fentanyl Screen Ur Barbiturates Screen Ur Phencyclidine Scrn Ur Amphetamines Screen U Benzodiazepines Scrn Urine Cocaine Screen U Marijuana (THC) Screen Chlam trachomat DNA PCR COVID-19 ([facility]) COVID-19 Clin Com N.gonorrhoeae DNA (PCR) 08/26/21 08/26/21 08/26/21 19:45 19:45 22:57 WBC RBC Hgb Hct MCV MCH MCHC RDW Plt Count MPV Immature Gran % (Auto) Neut % (Auto) Lymph % (Auto) [place] % (Auto) Eos % (Auto) Baso % (Auto) Lymph # (Auto) [place] # (Auto) Eos # (Auto) Baso # (Auto) Abs Immat Gran (auto) Absolute Neuts (auto) Absolute Nucleated RBC Nucleated RBC % (auto) ESR Sodium 139 Potassium 4.0 Chloride 103 Carbon Dioxide 28 Anion Gap 12 BUN 17 H Creatinine 0.60 Estim Creat Clear Calc 103.8 Estimated GFR > 60 Random Glucose 87 Lactic Acid Calcium 9.4 Magnesium 2.1 Total Bilirubin < 0.2 Direct Bilirubin < 0.2 AST 49 H ALT 75 H Alkaline Phosphatase 69 Total Creatine Kinase 42 C-Reactive Protein 0.46 Total Protein 7.8 Albumin 3.9 Urine Color YELLOW Urine Appearance CLEAR Urine pH 6.0 Ur Specific [place] 1.025 Urine Protein NEG Urine Glucose (UA) NEG Urine Ketones NEG Urine Blood NEG Urine Nitrite NEG Ur Leukocyte Esterase NEG Urine Test Urine Opiates Screen Urine Fentanyl Screen Ur Barbiturates Screen Ur Phencyclidine Scrn Ur Amphetamines Screen U Benzodiazepines Scrn Urine Cocaine Screen U Marijuana (THC) Screen Chlam trachomat DNA PCR COVID-19 ([facility]) Negative COVID-19 Clin Com See Note N.gonorrhoeae DNA (PCR) 08/26/21 08/26/21 08/26/21 22:58 22:58 22:58 WBC RBC Hgb Hct MCV MCH MCHC RDW Plt Count MPV Immature Gran % (Auto) Neut % (Auto) Lymph % (Auto) [place] % (Auto) Eos % (Auto) Baso % (Auto) Lymph # (Auto) [place] # (Auto) Eos # (Auto) Baso # (Auto) Abs Immat Gran (auto) Absolute Neuts (auto) Absolute Nucleated RBC Nucleated RBC % (auto) ESR Sodium Potassium Chloride Carbon Dioxide Anion Gap BUN Creatinine Estim Creat Clear Calc Estimated GFR Random Glucose Lactic Acid Calcium Magnesium Total Bilirubin Direct Bilirubin AST ALT Alkaline Phosphatase Total Creatine Kinase C-Reactive Protein Total Protein Albumin Urine Color Urine Appearance Urine pH Ur Specific [place] Urine Protein Urine Glucose (UA) Urine Ketones Urine Blood Urine Nitrite Ur Leukocyte Esterase Urine Test NEGATIVE Urine Opiates Screen POSITIVE H Urine Fentanyl Screen POSITIVE H Ur Barbiturates Screen Not Detected Ur Phencyclidine Scrn Not Detected Ur Amphetamines Screen Not Detected U Benzodiazepines Scrn Not Detected Urine Cocaine Screen POSITIVE H U Marijuana (THC) Screen POSITIVE H Chlam trachomat DNA PCR NOT DETECTED COVID-19 ([facility]) COVID-19 Clin Com N.gonorrhoeae DNA (PCR) NOT DETECTED Airway Mallampati Class: II TM Dist: >3cm Neck ROM: Full Heart: RRR Lungs: CTA Assessment and Plan Final Anesthetic Review Family History of Problems with Anesthesia: No History of Problems with Anesthesia: No NPO: Yes ASA Class: II Final Preanesthetic Review: No Changes in Pt Med Stat, Meds/Allgs Chart Reviewed, Consent Obtained/Reviewed and Anes Risks/Benef Reviewed Patient Risk: Low Procedure Risk: Low Anesthetic Plan Anesthetic Plan: GA Disposition: Standard PACU
--- NOTE | 2021-08-27 10:26 | PHA.MEDREC ---
Pharmacy Consult ? Medication Reconciliation Pharmacy has completed the medication reconciliation. Patient refused to speak to me. Today me to call [facility] on [address] in [facility]. She had only a few recent medications. Ирина Robert, SofiaD
--- NOTE | 2021-08-27 10:45 | MHC.CM.PN ---
PATIENT IN [facility] DURING ASSESSMENT ATTEMPT CASE MANAGEMENT FOLLOWING FOR ANY DC NEEDS IN THE EVENT THAT SHE DOES NOT DISCHARGE FROM THERE
--- NOTE | 2021-08-27 11:26 | MHC.SHP ---
Pre-Procedural Eval Section A Date of Service: 08/27/21 The patient is an INPATIENT: Yes Changes since office visit: No Cold of Flu in the past 2 weeks, No New Medical Problems, No Changes in Medication and No Patient answered all questions The History & Physical has been completed within 30 days and I have reviewed it.: Yes Section B Chief Complaint: Finger infection Allergies: Allergies Allergy/AdvReac Type Severity Reaction Status Date / Time orange [ORANGES] Allergy Intermediate HIVES Verified 08/26/21 18:27 Sulfa (Sulfonamide Allergy Rash Verified 08/26/21 18:28 Antibiotics) seafood AdvReac Anaphylaxis Verified 08/26/21 18:27 Plan I have reviewed the history and physical and performed a pertinent physical examination on my patient. No changes have occurred unless specified.
--- NOTE | 2021-08-27 11:27 | P.OP_ITS ---
Operative Note Operative Note Date of Service: 08/27/21 Narrative: Operative Note Narrative: Preop diagnosis: left middle finger infection, felon and flexor tenosynovitis Postop diagnosis: Same Procedure: 1. Left middle finger I and D of felon and flexor tendon sheath Surgeon: Palmira Hansen MD Anesthesia: General Findings: Radial sided incision from ED I&D. Evidence of significant pus under pressure prior to that I&D. Some necrosis of tissue at the tip of the finger. Purulent material extending down the flexor tendon sheath to about the PIP joint level. No gross purulence found at the A1 erika level. Implants: none Tourniquet time: Fifteen minutes EBL: 5.0 ml Specimen: purulent material sent for cultures Drains: None Complications: None Disposition: Brought to the recovery room in stable condition Plan: we will attempt to admit her for IV antibiotics. This patient has a strong IV drug use history and is already saying that she wants to leave AMA and not spend the night. Ideally she would stay for IV antibiotics and then follow up with us in 3-5 days for wound check, suture removal and to check cultures Anticipating that she will leave AMA, we have sent a prescription for 7 days of doxycycline oral p.o. b.i.d. to her pharmacy, and given her a follow-up in our clinic on Tuesday09/01/2021 she is already calling for a ride from the recovery room. Indications: The patient is a 26 year old woman with a strong IV drug use history and a left middle finger infection . The risks and benefits of operative treatment, including but not limited to risk of damage to blood vessels, nerves, tendons, infection, recurrence, persistent pain or numbness, incomplete resolution of preoperative symptoms, or need for further surgery were discussed with the patient and they wished to proceed with surgery. Procedure: Once consent was obtained patient was brought back to the operating suite and placed in the operating table in a supine position. . Perioperative antibiotics and anesthesia was administered by the anesthesia team. A tourniquet was applied to the proximal aspect of the left upper extremity and the limb was prepped and draped in a standard surgical fashion. The limb was elevated and the tourniquet inflated to 250 mm of mercury for a total tourniquet time of Fifteen minutes. there is a radial lateral incision at the distal phalanx level from the I&D performed in the emergency department. There is certainly evidence that there had been pus under pressure as there is a cavity under some compromised skin. The area is still draining some purulent material. IU some tenotomy scissors to open this area to assure that no pockets of pus remain done opened. I made an oblique incision over the volar middle phalanx level using a 15. Blade and then carefully dissected down to the flexor tendon sheath using tenotomy scissors. There was purulent material found about the flexor tendon sheath at this level. There is a small opening in the flexor tendon sheath just distal to the A4 erika. I then made an oblique incision over the A1 erika using a 15. Blade. I then used tenotomy scissors to carefully dissect down to the A1 erika. I opened the A1 erika longitudinally using a 15. Blade and tenotomy scissors. I did not see any gross purulence in this area. I then placed an Angiocath into the flexor tendon sheath at the A1 erika level and copiously irrigated the flexor tendon sheath in a proximal to distal direction. The fluid appeared to be draining out of the wound at the middle phalanx level. The wound at the middle phalanx level and the wound at the d istal phalanx level or also copiously irrigated using normal saline. I was also able to irrigate from the middle phalanx wound distally to the distal phalanx wound. At this point the tourniquet was deflated and hemostasis obtained with a brief period of local pressure . The Wounds were again copiously irrigated with normal saline. The skin edges over the A1 and A4 pulleys were loosely r eapproximated with 5-0 nylon suture to allow for any drainage. a digital block was performed with some 0.5% plain Marcaine for postop pain control and a sterile dressing was applied. The patient appears to have tolerated the procedure well and with no complications. All digits were well vascularized conclusion of the case.
--- NOTE | 2021-08-27 12:38 | MHC.CM.PN ---
Addendum entered by Lilia Jacob 08/27/21 16:01: PT HAS STILL NOT ARRIVED TO [facility] UNIT. CM WILL REVISIT Original Note: CM ATTEMPTED TO SEE PT WHO WAS OFF UNIT APPEARS TO BE IN [facility] CM TO REVISIT
--- NOTE | 2021-08-27 13:28 | HO.POSTANES ---
Post Anesthesia Evaluation Post Anesthesia Evaluation Vital Signs: Vital Signs Temp Pulse Resp BP Pulse Ox 08/27/21 13:00 79 16 112/75 98 08/27/21 12:45 77 16 108/78 98 08/27/21 12:40 79 16 108/78 98 08/27/21 12:35 82 16 115/58 L 99 08/27/21 12:31 97 F 89 16 126/70 99 08/27/21 10:12 97.6 F 89 16 109/67 99 08/27/21 06:36 16 08/27/21 04:00 16 08/27/21 02:00 16 Anesthesia: General LMA Mental Status: Awake Pain Control: Satisfactory Nausea/Vomiting: None Hydration: Adequate
--- NOTE | 2021-12-24 14:36 | PM.DS ---
DS: Providers Provider Date of Service: 08/27/21 Date of admission: 08/26/21 23:04 Primary care physician: Funmi Choi NP Consults: 08/27/21 00:25 Consult to Infectious Diseases Routine Consulting Provider: Vidhi Goins Reason for consultation: hand infection DS: Diagnosis Discharge Diagnosis (1) Finger infection: Status: Acute DS: Summary Hospital Course Hospital Course: 26-year-old patient underwent an I&D of the left middle finger with Dr. Hansen on 08/27. After the procedure she was transferred to PACU to recover but patient was adamant that she was going home and her ride was ready therefore she left AMA. Prescription for p.o. antibiotics was sent to her pharmacy and the patient was expected to be seen for postop appointment in the office. Time Spent with Patient Time attestation: Total time spent providing and/or coordinating discharge services: Discharge coordination time: Less than 30 minutes Quality: Safe Use of Opioids Does Pt have an Active Cancer Diagnosis on the Problem List?: No Quality: Stroke Does the patient have a stroke diagnosis?: No Physical Exam Vital Signs: Vital Signs: Last Vital Signs Temp 97 F 08/27/21 13:39 Pulse 78 08/27/21 13:39 Resp 16 08/27/21 13:39 BP 120/69 08/27/21 13:39 Pulse Ox 98 08/27/21 13:39 BMI result Body Mass Index 21.4 DS: Data Data Completed and Pending Completed studies during hospitalization [Text1]: Procedures Drainage of Left Hand Skin, External Approach (08/26/21) Drainage of Left Hand Tendon, Open Approach (08/26/21) Discharge Plan Discharge Patient Disposition: Left Against Medical Advice Discharge Diagnosis: iNFECTED FINGER Referrals: Funmi Choi NP [Primary Care Provider] - 1 Week Discharge Medications: New doxycycline hyclate 100 mg capsule 100 mg PO BID 7 Days Qty: 14 0RF Discontinued clindamycin HCl 150 mg capsule 1 cap PO TID 0RF No Action hydroxyzine HCl 25 mg Tablet 25 mg PO TID PRN (Reason: Anxiety) 30 Days Qty: 90 0RF amoxicillin-pot clavulanate [Augmentin] 875-125 mg tablet 1 tab PO BID Qty: 20 0RF quetiapine 25 mg tablet 25 mg PO BID@0900,1400 0RF quetiapine 300 mg tablet 0.5 tab PO BEDTIME 0RF trazodone 50 mg Tablet 50 mg PO BEDTIME PRN (Reason: Sleep) 0RF atomoxetine 40 mg capsule 1 cap PO QAM 0RF melatonin 5 mg Tablet 5 mg PO BEDTIME PRN (Reason: Sleep) 0RF Discharge Orders: Discharge Order (Routine); Ordered 12/24/21 Ordered By: Pam Lion Care Plan Goals: left ama Health Concerns: left ama Plan of Treatment: left ama Assessment: left ama Discharge Date/Time: 08/27/21 13:50
== END 2021-08-27 13:50 | disposition left against medical advice (07) | DRG 316 ==
LOC: HO.ED 23:23 → HO.EDOVER 23:37
PROVIDERS: Orthopaedic Surgery; Physician Assistant; Admitting Provider Physician Assistant; Emergency Provider Emergency Medicine Emergency Medical Services; PCP Nurse Practitioner Family; Visit Provider Physician Assistant
PROC: 0L980ZZ Drainage of Left Hand Tendon, Open Approach (ICD-10-PCS; CPT 26020; principal; 2021-08-27 10:10)
DX: M65.9 Synovitis and tenosynovitis, unspecified (principal); F11.20 Opioid dependence, uncomplicated; F17.210 Nicotine dependence, cigarettes, uncomplicated; Z20.822 Contact with and (suspected) exposure to COVID-19; Z59.01 Sheltered homelessness; Z71.6 Tobacco abuse counseling; Z88.2 Allergy status to sulfonamides; Z79.1 Long term (current) use of non-steroidal anti-inflammatories (NSAID); Z79.899 Other long term (current) drug therapy
CPT/HCPCS: 26010; 26020; 26011; 80048; 80076; 80307; 81003; 81025; 82550; 83605; 83735; 85025; 85652; 86140; 87040; 87071; 87077; 87186; 87205; 87491; 87591; 87635; 99285; J1100; J1885; J2250; J2405; J2543; J3010; J3370

== ENCOUNTER → 2021-09-08 13:51 | Outpatient (BNVA) | payer SELFPAY | PROVIDERS: PCP Nurse Practitioner Family; Visit Provider Physician Assistant ==

== ENCOUNTER 2021-09-08 15:10 | Inpatient (IN) | payer OTHER, SELFPAY ==
[2021-09-08 15:43] VITALS: BP 133/76; PULSE 98; RESP 19; TEMP 36.6; O2SAT 99; BMI 22.6
--- NOTE | 2021-09-08 15:48 | ED.SKABFB ---
HPI - Skin/Abscess/Foreign Bdy General Chief complaint: General Medical Stated complaint: infection in finger Time Seen by Provider: 09/08/21 15:36 Source: patient Mode of arrival: ambulatory Limitations: no limitations History of Present Illness HPI narrative: 26 yo female with history of anxiety, asthma, bipolar affective, depression, PTSD (post-traumatic stress disorder) coming from the orthopedic office with plan for OR tomorrow for I&D of 3rd left middle finger. Sent to ER for admission tonight. Of note, patient was taken to the OR 08/27/21 for I&D for left middle finger infection, felon and flexor tenosynovitis. She was discharged 08/28/21 on doxycycline but it is unclear if she started this. On arrival the patient is quite agitated, anxious, not providing any history of present illness. She has a history of IVDA but tells me she has not used in >3 weeks. 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 Home Medications Medication Instructions Recorded Confirmed clindamycin HCl 150 mg capsule 1 cap PO TID 08/27/21 09/08/21 atomoxetine 40 mg capsule 1 cap PO QAM 09/08/21 09/08/21 melatonin 5 mg tablet 5 mg PO BEDTIME PRN 09/08/21 09/08/21 quetiapine 25 mg tablet 25 mg PO BID@0900,1400 09/08/21 09/08/21 quetiapine 300 mg tablet 0.5 tab PO BEDTIME 09/08/21 09/08/21 trazodone 50 mg tablet 50 mg PO BEDTIME PRN 09/08/21 09/08/21 Previous Rx's Medication Instructions Recorded hydroxyzine HCl 25 mg tablet 25 mg PO TID PRN 30 Days #90 tab 05/15/21 Allergies Allergy/AdvReac Type Severity Reaction Status Date / Time orange [ORANGES] Allergy Intermediate HIVES Verified 09/08/21 14:09 Sulfa (Sulfonamide Allergy Rash Verified 09/08/21 14:09 Antibiotics) seafood AdvReac Anaphylaxis Verified 09/08/21 14:09 Review of Systems Review of Systems: Yes all other systems are reviewed and are negative Constitutional: Constitutional: Reports no additional constitutional complaints, Denies body ache(s), Denies chills, Denies fever(s), Denies headache(s) and Denies weakness Eyes: Eyes: Reports no additional eye complaints and Denies change in vision ENT: Reports system reviewed and no additional complaints, except as documented, Denies dizziness, Denies headache(s), Denies nasal congestion, Denies nasal discharge and Denies neck pain Cardiovascular: Cardiovascular: Reports no additional cardiovascular complaints, Denies chest pain, Denies leg edema and Denies dyspnea Respiratory: Respiratory: Reports no additional respiratory complaints, Denies cough and Denies dyspnea Gastrointestinal: Gastrointestinal: Reports no additional gastrointestinal complaints, Denies abdominal pain, Denies diarrhea, Denies nausea and Denies vomiting Genitourinary: Genitourinary: Reports no additional female genitourinary complaints and Denies urinary incontinence Musculoskeletal: Musculoskeletal: Reports no additional musculoskeletal complaints, Denies back pain, Denies arthralgias, Denies joint swelling, Denies neck pain, Denies numbness and Denies tingling Integumentary/Breasts: Skin/Breast: Reports system reviewed and no additional complaints, except as docu, Reports swelling, Reports erythema and Denies rash Neurologic: Reports system reviewed and no additional complaints, except as documented, Denies Abnormal speech present, Denies dizziness, Denies headache(s), Denies numbness, Denies tingling and Denies weakness PMFSH Past Medical History Attestation statement: The following information was validated with the patient. Source: old records reviewed and nursing notes reviewed Medical History Anxiety Asthma Bipolar affective Depression PTSD (post-traumatic stress disorder) Social History Social History Household Members: Significant Other Household Members Other:: fiance Housing: Homeless Housing Other:: I live with my fiance. We don't have an apartment. I am not homeless Do you presently have visiting nurse or other home services: No Alcohol intake: never Patient Tobacco Use Status: Current everyday Tobacco user Tobacco use type: Cigarette Cigarette Packs Per Day: 1 Cigarettes Per Day: 20.0 Years Smoked: 11 Second Hand Smoke Exposure: Yes Substance Use Type: Crack/Cocaine, Heroin and Marijuana Advance Directives: No Advance Directives Information Provided: No Patient : No service: No Sexual orientation: Don't Know Physical Exam Vital Signs: Vital Signs: Last Vital Signs Temp 98.0 F 09/08/21 18:24 Pulse 61 09/08/21 18:24 Resp 16 09/08/21 18:24 BP 100/52 L 09/08/21 18:24 Pulse Ox 100 09/08/21 18:24 BMI result Body Mass Index 22.6 Const: Other: rolling around on recliner, quite anxious, yelling out intermittently General: alert Orientation/consciousness: patient oriented x3 Limitations: no limitations HENMT: Head: Yes normal to inspection Ears: hearing grossly normal bilaterally General nose exam: Normal external nose present Face and sinus: Yes normal facial exam Mouth: Normal oral and palatal mucosa present Throat: Yes posterior oropharynx normal Eyes: General: appearance normal, both eyes and all related structures Pupils: Equal, round and reactive pupils present Neck: Neck: Yes normal visual inspection Chest: Chest palpation & inspection: normal inspection of the chest Resp: Effort & Inspection: normal respiratory effort Auscultation: clear to auscultation bilaterally Cardio: Rate: regular rate Rhythm: regular rhythm Peripheral pulses: Peripheral pulses 2+ throughout GI: Inspection: Yes normal to inspection Palpation (GI): Soft to palpation and nontender Auscultation: normal bowel sounds Back/Spine/Pelvis: Thoracic/Lumbar Spine: thoracic and lumbar spine normal to inspection Skin: General skin exam: no rashes or lesions noted Neuro: General: patient oriented x3, no focal motor deficits and normal sensation to monofilament Cranial nerves: Yes Equal, round and reactive pupils present Cognition (Neuro): normal cognition Speech: No Abnormal speech present Gait exam (Neuro): Normal gait present Motor exam (neuro): 5/5 motor strength present throughout Extrem: Other: Patient refusing to let me examine her hand. She has FROM of the wrist independent of my exam. She has limited flexion of the 3rd digit. Sutures are present over the volar aspect of the digit and palmar aspect. General: Yes normal to inspection Course Course Course Narrative: 26 yo female with underlying history of substance abuse, mental health here from orthopedic office with plan for admission, debridement of the left 3rd digit in the morning. Unfortunately HPI, ROS and PE is severely limited d/t patient being quite irritable, agitated and refusing to let me examine her. On inspection the 3rd digit is swollen, erythmatic with areas of necrosis. Limited flexion d/t pain. Will need labs including BCX, lactic acid, COVID screen. At this time infection is suspected, antibiotics ordered. Spoke to recovery team. 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 Patient quite agitated and anxious ?polysubstance. Will check BECK. Recommendations from recovery team for methadone 10mg Q4hr (max dose 30mg 24 hrs period) for withdrawal symptoms. Ativan for anxiety, nicotine patch for cravings. 1645-COVID +. No hypoxia, tachypnea or reports of URI symptoms. Received pfizer x2. Elevated AST/ALT. Normal bili. No abdominal pain or vomiting. Likely from underlying hepatitis C. Will add panel. MDM - Skin/Abscess/Foreign Bdy Medical Records Attestation: I reviewed the patient's medical records. Lab Data Attestation: I reviewed the patient's lab results. Result diagrams: 09/08/21 16:16 09/08/21 16:16 Labs: Lab Results 09/08/21 09/08/21 09/08/21 Range/Units 16:16 16:16 16:16 WBC 7.7 (4.8-10.8) X10*3/uL RBC 4.26 (4.20-5.50) X10*6/uL Hgb 13.0 (12.0-16.0) g/dl Hct 40.3 (37.0-47.0) % MCV 94.6 (80.0-98.0) fL MCH 30.5 (27.0-33.0) pg MCHC 32.3 (31.0-35.0) g/dl RDW 13.2 (11.0-16.0) % Plt Count 239 D (160-400) X10*3/uL MPV 10.3 (9.4-12.3) fL Immature Gran % (Auto) 0.1 (0.0-0.4) % Neut % (Auto) 67.5 (45-73) % Lymph % (Auto) 22.0 (20-40) % [place] % (Auto) 8.7 (2-11) % Eos % (Auto) 1.2 (0-4) % Baso % (Auto) 0.5 (0-2) % Lymph # (Auto) 1.7 (1.2-4.9) X10*3/uL [place] # (Auto) 0.7 (0.1-1.2) X10*3/uL Eos # (Auto) 0.1 (0.0-0.4) X10*3/uL Baso # (Auto) 0.0 (0.0-0.2) X10*3/uL Abs Immat Gran (auto) 0.01 (0.00-0.03) X10*3/uL Absolute Neuts (auto) 5.2 (2.0-8.3) x10*3/uL Absolute Nucleated RBC 0.000 (0.0-0.012) X10*3/uL Nucleated RBC % (auto) 0.0 (0.0-0.2) /100WBC Sodium 140 (135-145) mmol/L Potassium 4.3 (3.3-5.1) mmol/L Chloride 105 (96-108) mmol/L Carbon Dioxide 27 (22-29) mmol/L Anion Gap 12 (12-20) BUN 18 H (9-16) mg/dL Creatinine 0.73 (0.5-1.4) mg/dL Estim Creat Clear Calc 89.6 Estimated GFR > 60 Random Glucose 102 (60-115) mg/dL Lactic Acid 0.9 (0.5-2.0) mmol/L Calcium 9.5 (8.4-10.2) mg/dL Total Bilirubin 0.4 (0.0-1.0) mg/dL Direct Bilirubin 0.2 (0.0-0.5) mg/dL AST 243 H (5-31) U/L ALT 294 H (0-31) U/L Alkaline Phosphatase 68 (39-117) U/L Total Protein 8.0 (6.5-8.0) g/dL Albumin 3.9 (3.5-5.0) g/dL COVID-19 ([facility]) (Negative) COVID-19 Clin Com 09/08/21 Range/Units 16:16 WBC (4.8-10.8) X10*3/uL RBC (4.20-5.50) X10*6/uL Hgb (12.0-16.0) g/dl Hct (37.0-47.0) % MCV (80.0-98.0) fL MCH (27.0-33.0) pg MCHC (31.0-35.0) g/dl RDW (11.0-16.0) % Plt Count (160-400) X10*3/uL MPV (9.4-12.3) fL Immature Gran % (Auto) (0.0-0.4) % Neut % (Auto) (45-73) % Lymph % (Auto) (20-40) % [place] % (Auto) (2-11) % Eos % (Auto) (0-4) % Baso % (Auto) (0-2) % Lymph # (Auto) (1.2-4.9) X10*3/uL [place] # (Auto) (0.1-1.2) X10*3/uL Eos # (Auto) (0.0-0.4) X10*3/uL Baso # (Auto) (0.0-0.2) X10*3/uL Abs Immat Gran (auto) (0.00-0.03) X10*3/uL Absolute Neuts (auto) (2.0-8.3) x10*3/uL Absolute Nucleated RBC (0.0-0.012) X10*3/uL Nucleated RBC % (auto) (0.0-0.2) /100WBC Sodium (135-145) mmol/L Potassium (3.3-5.1) mmol/L Chloride (96-108) mmol/L Carbon Dioxide (22-29) mmol/L Anion Gap (12-20) BUN (9-16) mg/dL Creatinine (0.5-1.4) mg/dL Estim Creat Clear Calc Estimated GFR Random Glucose (60-115) mg/dL Lactic Acid (0.5-2.0) mmol/L Calcium (8.4-10.2) mg/dL Total Bilirubin (0.0-1.0) mg/dL Direct Bilirubin (0.0-0.5) mg/dL AST (5-31) U/L ALT (0-31) U/L Alkaline Phosphatase (39-117) U/L Total Protein (6.5-8.0) g/dL Albumin (3.5-5.0) g/dL COVID-19 ([facility]) Positive A (Negative) COVID-19 Clin Com See Note Discharge Plan Discharge Clinical Impression: Finger infection Patient Disposition: Admitted As Inpatient
[2021-09-08 16:21] LABS: MANUAL DIFF FLAG NO
[2021-09-08 16:22] LABS: Basophils Percent Auto 0.5 % (0-2); Eosinophils Absolute Auto 0.1 X10*3/uL (0.0-0.4); Eosinophils Percent Auto 1.2 % (0-4); Hematocrit 40.3 % (37.0-47.0); Imm Gran Abs Auto 0.01 X10*3/uL (0.00-0.03); Imm Gran Pct Auto 0.1 % (0.0-0.4); Lymphocytes Absolute Auto 1.7 X10*3/uL (1.2-4.9); Mean Corpuscular HGB Conc 32.3 g/dl (31.0-35.0); Mean Corpuscular Hemoglobin 30.5 pg (27.0-33.0); Mean Corpuscular Volume 94.6 fL (80.0-98.0); Mean Platelet Volume 10.3 fL (9.4-12.3); Monocytes Absolute Auto 0.7 X10*3/uL (0.1-1.2); Monocytes Percent Auto 8.7 % (2-11); Neutrophils Absolute Auto 5.2 x10*3/uL (2.0-8.3); Neutrophils Percent Auto 67.5 % (45-73); Platelet Count 239 X10*3/uL (160-400); Red Blood Count 4.26 X10*6/uL (4.20-5.50); Red Cell Distribution Width 13.2 % (11.0-16.0); White Blood Count 7.7 X10*3/uL (4.8-10.8)
[2021-09-08 16:31] LABS: COVID-19 Test Positive (Negative)
[2021-09-08 16:33] LABS: Lactic Acid 0.9 mmol/L (0.5-2.0)
[2021-09-08 16:37] LABS: Alanine Aminotransferase 294 U/L (0-31); Albumin Level 3.9 g/dL (3.5-5.0); Alkaline Phosphatase 68 U/L (39-117); Anion Gap 12 (12-20); Aspartate Amino Transferase 243 U/L (5-31); Bilirubin Direct 0.2 mg/dL (0.0-0.5); Bilirubin Total 0.4 mg/dL (0.0-1.0); Blood Urea Nitrogen 18 mg/dL (9-16); Calcium 9.5 mg/dL (8.4-10.2); Carbon Dioxide 27 mmol/L (22-29); Chloride 105 mmol/L (96-108); Creatinine Clr Calc Pharmacy 89.6; Estimated Glomerular Filt Rate > 60; Glucose Random 102 mg/dL (60-115); Potassium 4.3 mmol/L (3.3-5.1); Sodium 140 mmol/L (135-145)
[2021-09-08] MEDS: Nicotine 21 MG PATCH.TD24 TRANSDERMA (16:55)
[2021-09-08] MEDS: methADONE HCl 20 MG/2 ML ORAL.CONC 10 MG PO ×2 (16:55→18:11)
[2021-09-08] MEDS: LORazepam 1 MG TABLET 2 MG PO (16:55)
[2021-09-08] MEDS: Piperacillin Sodium/Tazobactam 3.375 GM in 0.9 % Sodium Chloride 50 ML IV (16:56)
--- NOTE | 2021-09-08 17:52 | PHA.MEDREC ---
Pharmacy Consult ? Medication Reconciliation Pharmacy has completed the medication reconciliation.Pt has not taken her meds in a while, spoke to denys, meds are what she was discharged back on jun 2021
[2021-09-08] MEDS: Ketorolac Tromethamine 30 MG/ML VIAL IVPUSH (18:13)
[2021-09-08 18:24] VITALS: BP 100/52; PULSE 61; RESP 16; TEMP 36.7; O2SAT 100
[2021-09-08] MEDS: vancomycin HCL 750 MG in 0.9 % Sodium Chloride 250 ML 265 MG IV (19:12)
--- NOTE | 2021-09-08 19:16 | PC.NURSE ---
Pt uncooperative. swearing in loud voice. Pt has used bathroom earlier then became very sleepy. Pt insisting she has to go to the bathroom. Before IV meds and when this nurse asked to assist her Pt became aggitated and walked out into the waiting room. Security called. Pt came back with security and belongings were searched. Refusing to go to bathroom with escort but did decide to go with female security support analyst. Pt still verbally abusive.
--- NOTE | 2021-09-08 19:58 | PC.NURSE ---
PT ALLOWED IV VANCO TO BE HUNG. PT CONTINUES TO YELL OUT PROFANITIES IN ROOM WHILE TALKING ON CELL PHONE.
--- NOTE | 2021-09-08 21:24 | PC.NURSE ---
PT CONTINUES TO BEND RIGHT ARM. THIS NURSE HAS RESET PUMP SEVERAL TIMES. ASKING PATIENT TO PLEASE KEEP ARM STRAIGHTER SO MED WILL INFUSE. PT NOT COOPERATIVE. PT ASKING FOR SALTINES. PT GIVEN A HAND FULL OF SALTINES. PT WAS ALREADY GIVEN SALTINES AND JUICE BY WENDY APPIAH.
--- NOTE | 2021-09-08 21:39 | PC.NURSE ---
DEANNE PATIENTS MOTHER #[phone] PT'S HEALTH CARE PROXY.
--- NOTE | 2021-09-08 22:00 | PC.NURSE ---
SANDWICH WAS MADE BY PROVIDER. PT REFUSED SANDWICH.
--- NOTE | 2021-09-08 23:04 | PC.NURSE ---
PT NOT IN ROOM. PROVIDER STATES PT LEFT HOSPITAL WITH IV AND VANCOMYCIN. WAS ACROSS STREET. SECURITY BROUGHT PATIENT BACK TO ROOM, IV REMOVED. PT LEFT WITH HOME CARE LIAISON.
[2021-09-09 04:49] LABS: HBc Num1 0.15 S/CO (0.00-0.79); HBsAGNum1 0.41 S/CO (0.00-0.99); Hepatitis B Core Antibody Nonreactive (Nonreactive); Hepatitis B Surface Antigen Negative (Negative); ~HepC Num1 11.37 S/CO (0.00-0.79); ~Hepatitis B Surface Antibody NONREACTIVE (Nonreactive); ~Hepatitis C Antibody Reactive (Nonreactive)
[2021-09-09 05:00] LABS: Hepatitis A Antibody IgM 0.34 Index (0-0.79); ~Hepatitis A Antibody IgM Nonreactive (Nonreactive)
--- NOTE | 2021-09-09 08:48 | MHC.CM.PN ---
CM ATTEMPTED TO CONTACT PT VIA T/C ([phone]) AT 08:48 HOURS. VM NOT SET UP, UNABLE TO LEAVE MESSAGE. CM TO REVISIT
--- NOTE | 2021-09-09 10:29 | MHC.RECOVRN ---
Late entry: T/w initially engaged with pt at 1500 on 09/08 in the ortho office at [address] [place] [address] Dr Pablito Wilhelm. Pt known to t/w from previous consultations. Security present, pt willing to go to ED for evaluation of finger. Pt under the influence of substances, erratic behavior. Security escorted pt to ED. T/w reconnected with pt around 1530 in [place] in ED. Pt very labile, tearful at times on the phone stating I'm scared. Pt unable to engage in meaningful conversation or appropriately answer questions regarding substance use due to mental state. Pt was able to express desire for methadone while in the hospital to treat withdrawal. UDS had been ordered. Discussed with ED provider plan to address opiate withdrawal when it begins. Plan includes methadone, 10 mg q4 hours prn, max of 3 doses. Pt is scheduled in the OR on 09/09, hope is patient will remain in ED/hospital overnight. Will continue to follow.
--- NOTE | 2021-09-09 13:49 | MHC.CM.PN ---
Patient left AMA before she could be seen by case management.
== END 2021-09-08 23:45 | disposition home or self-care (01) | DRG 383 ==
LOC: HO.ED 15:54 → HO.EDOVER 16:33
PROVIDERS: Nurse Practitioner Family; Admitting Provider Orthopaedic Surgery; Emergency Provider Emergency Medicine; PCP Nurse Practitioner Family; Visit Provider Orthopaedic Surgery
DX: L08.89 Other specified local infections of the skin and subcutaneous tissue (principal); U07.1 COVID-19; F11.10 Opioid abuse, uncomplicated; F17.210 Nicotine dependence, cigarettes, uncomplicated; F43.10 Post-traumatic stress disorder, unspecified; Z20.822 Contact with and (suspected) exposure to COVID-19; Z59.02 Unsheltered homelessness; Z71.6 Tobacco abuse counseling; Z91.013 Allergy to seafood; Z88.2 Allergy status to sulfonamides; Z79.899 Other long term (current) drug therapy
CPT/HCPCS: 36415; 80048; 80076; 83605; 85025; 86704; 86706; 86709; 86803; 87040; 87340; 87635; 99212; 99218; 99284; J1885; J2543; J3370

== ENCOUNTER 2021-09-10 04:50 | Emergency (ER) | payer OTHER, SELFPAY ==
[2021-09-10 05:09] VITALS: BP 91/57; PULSE 78; RESP 16; TEMP 35.8; O2SAT 98; BMI 22.4
--- NOTE | 2021-09-10 08:05 | ED.EXTPRO ---
HPI - Extremity Problem General Chief complaint: Extremity Problem Stated complaint: finger infection pain Time Seen by Provider: 09/10/21 08:03 Source: patient Mode of arrival: ambulatory Limitations: no limitations History of Present Illness HPI Narrative: 26 y/o female with history of IV drug abuse and recent flexor tenosynovitis of her left middle finger status post washout 08/27 who presents back to the ER today with severe pain in her left middle finger. She states it is getting worse and more black. she reports being scheduled for surgery with Dr. Hansen today at noon but the pain was so severe that she could not wait. She was seen yesterday for similar pain however she left against advice. She reports being in a better head set today and is agreeable to stay for treatment. of note patient was found to be COVID positive on September 08. She has minimal symptoms from that standpoint. She is feeling fine. She denies fever or chills at home. She does reports worsening pain in her left middle finger. MD Complaint: extremity pain and extremity swelling Onset (ago): month(s) Pain Consistency: constant Location: left and upper extremity Severity scale (1-10): >10 Quality: stabbing, aching and constant Radiation: proximal Relieving factors: nothing Exacerbating factors: range of motion and palpation Associated symptoms: denies other symptoms Related Data Home Medications Medication Instructions Recorded Confirmed clindamycin HCl 150 mg capsule 1 cap PO TID 08/27/21 09/10/21 atomoxetine 40 mg capsule 1 cap PO QAM 09/08/21 09/10/21 melatonin 5 mg tablet 5 mg PO BEDTIME PRN 09/08/21 09/10/21 quetiapine 25 mg tablet 25 mg PO BID@0900,1400 09/08/21 09/10/21 quetiapine 300 mg tablet 0.5 tab PO BEDTIME 09/08/21 09/10/21 trazodone 50 mg tablet 50 mg PO BEDTIME PRN 09/08/21 09/10/21 Previous Rx's Medication Instructions Recorded hydroxyzine HCl 25 mg tablet 25 mg PO TID PRN 30 Days #90 tab 05/15/21 amoxicillin 875 mg-potassium 1 tab PO BID #20 tab 09/10/21 clavulanate 125 mg tablet (Augmentin) Allergies Allergy/AdvReac Type Severity Reaction Status Date / Time orange [ORANGES] Allergy Intermediate HIVES Verified 09/10/21 05:21 Sulfa (Sulfonamide Allergy Rash Verified 09/10/21 05:21 Antibiotics) seafood AdvReac Anaphylaxis Verified 09/10/21 05:21 Review of Systems Review of Systems: Constitutional: No Fever, No Chills ENT/Mouth: No sore throat, No Rhinorrhea Cardiovascular: No Chest Pain, No SOB, No Orthopnea, No Edema Respiratory: No Cough, No Sputum, No Wheezing, No dyspnea Gastrointestinal: No Nausea, No Vomiting, No Diarrhea, No abdominal Pain Musculoskeletal: + joint pain, No Myalgias Skin: + Skin Lesions, No rash Neuro: + Weakness, No Numbness, No Dizziness, No Headache Psych: + Anxiety/Panic, No Depression Heme/Lymph: No Bruising, No Lymphadenopathy PMFSH Past Medical History Medical History (Updated 09/10/21 @ 12:13 by PUSHPA Ramirez) Anxiety Asthma Bipolar affective Depression PTSD (post-traumatic stress disorder) Substance abuse Social History Social History Household Members: Significant Other Household Members Other:: fiance Housing: Homeless Housing Other:: I live with my fiance. We don't have an apartment. I am not homeless Do you presently have visiting nurse or other home services: No Alcohol intake: never Patient Tobacco Use Status: Current everyday Tobacco user Tobacco use type: Cigarette Cigarette Packs Per Day: 1 Cigarettes Per Day: 20.0 Years Smoked: 11 Second Hand Smoke Exposure: Yes Use of substances other than those prescribed or required for medical reasons: Yes Substance Use Type: Heroin Advance Directives: No Patient : No service: No Sexual orientation: Don't Know Physical Exam Vital Signs: Vital Signs: Last Vital Signs Temp 96.5 F L 09/10/21 08:17 Pulse 81 09/10/21 10:44 Resp 16 09/10/21 10:44 BP 100/39 L 09/10/21 10:44 Pulse Ox 98 09/10/21 10:44 BMI result Body Mass Index 22.4 Appearance: Lethargic but arouses to voice. Oriented X3. No acute distress. Eyes: Pupils equal, round and reactive to light. ENT: Pharynx normal. Neck: Normal inspection. Neck supple. CVS: Normal heart rate and rhythm. Pulses normal. Respiratory: No respiratory distress. Breath sounds normal. Abdomen: Soft and nontender. +BS x4 Skin: Skin warm and dry. No rashes. Extremities: No lower extremity edema. Left hand with blackened, dry, left middle finger, swelling and exquisite tenderness noted. old incisions noted without drainage. no palmar erythema or swelling. unable to assess NV status due to pain/uncooperative Neuro/psych: poorly kempt, Oriented X 3. ambulates with steady gait. Course Course Course Narrative: 26-year-old female with known flexor tenosynovitis of the left middle finger presents to the ER with worsening pain and blackening of the finger. She is due to go to the operating room with Dr. Hansen today at noon. She states the pain is so severe she could not wait any longer. She has left AMA multiple times. She is continuing to use IV drugs. She is sleeping at this time concern for recent use. She is easily arousable. will discuss with Dr. Hansen plan for operating room today. In the meantime will get labs and start her on IV antibiotics. She does not appear to be septic at this time. Reevaluation(s) Reevaluation #1: Unfortunately despite being told several times that patient should not eat she did eat too small fruit snacks that she had her possession at 08:00 today. She continued not listening to nurse and staff despite being told that this will interfere with her safely getting a procedure done today to help her finger and her pain. Case d/w Dr. Hansen who came to evaluate the patient. No urgent need for surgical intervention. She has left several times AMA. Plan will be to discharge on PO antibiotics and try gain on Thursday 09/14 for the OR. She was instructed several times by several staff members that she needs to be NPO and be available by driller and broacher to arrange an OR time for Tuesday. Compliance with antibiotics was also discussed and emphasized. She expressed understanding. She reports being homeless as her grandparents kicked her out because she was using drugs again. She thinks her phone is broken and recommends driller and broacher try to call her grandparents to contact her, unclear if she will be able to get the message. ice skating coach met with patient and patient did an intake with detox program. At this time she is stable for discharge with po abx and plan to f/u with Dr. Hansen on Tuesday. Consultations Consultation #1: Hand Surgery Dr. Hansen MDM - Extremity (Nontraumatic) Lab Data Result diagrams: 09/10/21 08:49 09/10/21 08:49 Labs: Lab Results 09/10/21 09/10/21 09/10/21 Range/Units 08:34 08:49 08:49 WBC 6.6 (4.8-10.8) X10*3/uL RBC 3.94 L (4.20-5.50) X10*6/uL Hgb 12.0 (12.0-16.0) g/dl Hct 36.8 L (37.0-47.0) % MCV 93.4 (80.0-98.0) fL MCH 30.5 (27.0-33.0) pg MCHC 32.6 (31.0-35.0) g/dl RDW 13.2 (11.0-16.0) % Plt Count 216 (160-400) X10*3/uL MPV 10.2 (9.4-12.3) fL Immature Gran % (Auto) 0.2 (0.0-0.4) % Neut % (Auto) 35.4 L (45-73) % Lymph % (Auto) 47.7 H (20-40) % Snyder % (Auto) 9.9 (2-11) % Eos % (Auto) 6.3 H (0-4) % Baso % (Auto) 0.5 (0-2) % Lymph # (Auto) 3.1 (1.2-4.9) X10*3/uL Snyder # (Auto) 0.7 (0.1-1.2) X10*3/uL Eos # (Auto) 0.4 (0.0-0.4) X10*3/uL Baso # (Auto) 0.0 (0.0-0.2) X10*3/uL Abs Immat Gran (auto) 0.01 (0.00-0.03) X10*3/uL Absolute Neuts (auto) 2.3 (2.0-8.3) x10*3/uL Absolute Nucleated RBC 0.000 (0.0-0.012) X10*3/uL Nucleated RBC % (auto) 0.0 (0.0-0.2) /100WBC Sodium 140 (135-145) mmol/L Potassium 3.7 (3.3-5.1) mmol/L Chloride 101 (96-108) mmol/L Carbon Dioxide 32 H (22-29) mmol/L Anion Gap 11 L (12-20) BUN 16 (9-16) mg/dL Creatinine 0.67 (0.5-1.4) mg/dL Estim Creat Clear Calc 93.0 Estimated GFR > 60 Random Glucose 97 (60-115) mg/dL Lactic Acid (0.5-2.0) mmol/L Calcium 9.3 (8.4-10.2) mg/dL Magnesium 2.1 (1.6-2.6) mg/dL Total Bilirubin 0.3 (0.0-1.0) mg/dL Direct Bilirubin < 0.2 (0.0-0.5) mg/dL AST 227 H (5-31) U/L ALT 297 H (0-31) U/L Alkaline Phosphatase 62 (39-117) U/L Total Protein 7.0 (6.5-8.0) g/dL Albumin 3.4 L (3.5-5.0) g/dL Ethyl Alcohol mg/dL COVID-19 ([facility]) Negative (Negative) COVID-19 Clin Com See Note 09/10/21 09/10/21 Range/Units 08:49 08:49 WBC (4.8-10.8) X10*3/uL RBC (4.20-5.50) X10*6/uL Hgb (12.0-16.0) g/dl Hct (37.0-47.0) % MCV (80.0-98.0) fL MCH (27.0-33.0) pg MCHC (31.0-35.0) g/dl RDW (11.0-16.0) % Plt Count (160-400) X10*3/uL MPV (9.4-12.3) fL Immature Gran % (Auto) (0.0-0.4) % Neut % (Auto) (45-73) % Lymph % (Auto) (20-40) % Snyder % (Auto) (2-11) % Eos % (Auto) (0-4) % Baso % (Auto) (0-2) % Lymph # (Auto) (1.2-4.9) X10*3/uL Snyder # (Auto) (0.1-1.2) X10*3/uL Eos # (Auto) (0.0-0.4) X10*3/uL Baso # (Auto) (0.0-0.2) X10*3/uL Abs Immat Gran (auto) (0.00-0.03) X10*3/uL Absolute Neuts (auto) (2.0-8.3) x10*3/uL Absolute Nucleated RBC (0.0-0.012) X10*3/uL Nucleated RBC % (auto) (0.0-0.2) /100WBC Sodium (135-145) mmol/L Potassium (3.3-5.1) mmol/L Chloride (96-108) mmol/L Carbon Dioxide (22-29) mmol/L Anion Gap (12-20) BUN (9-16) mg/dL Creatinine (0.5-1.4) mg/dL Estim Creat Clear Calc Estimated GFR Random Glucose (60-115) mg/dL Lactic Acid 1.7 (0.5-2.0) mmol/L Calcium (8.4-10.2) mg/dL Magnesium (1.6-2.6) mg/dL Total Bilirubin (0.0-1.0) mg/dL Direct Bilirubin (0.0-0.5) mg/dL AST (5-31) U/L ALT (0-31) U/L Alkaline Phosphatase (39-117) U/L Total Protein (6.5-8.0) g/dL Albumin (3.5-5.0) g/dL Ethyl Alcohol < 10 mg/dL COVID-19 ([facility]) (Negative) COVID-19 Clin Com Critical Care Time Critical Care Time Critical Care Time: Yes Total Critical Care Time: 36 Attestation: I have personally provided critical care time exclusive of time spent on separately billable procedures. Time includes review of lab data, radiology results, discussion with consultants, and monitoring for potential decompensation. Intervention performed as documented. Discharge Plan Discharge Clinical Impression: Finger necrosis Patient Disposition: Home, Self-Care Instructions: Gangrene (DC) Additional Instructions: You MUST take the prescribed antibiotics to help prevent further infection and damage of your finger. If you develop redness, swelling or worsening pain of your palm or hand you need to come back to the ER right away. Dr. Hansen is planning on doing surgery Thursday 09/14. NOTHING TO EAT OR DRINK TUESDAY NIGHT AFTER MIDNIGHT. DO NOT USE COCAINE DO NOT USE HEROIN IT CAN KILL YOU Prescriptions: New amoxicillin-pot clavulanate [Augmentin] 875-125 mg tablet 1 tab PO BID Qty: 20 RF: 0 No Action hydroxyzine HCl 25 mg Tablet 25 mg PO TID PRN (Reason: Anxiety) 30 Days Qty: 90 RF: 0 clindamycin HCl 150 mg capsule 1 cap PO TID RF: 0 quetiapine 25 mg tablet 25 mg PO BID@0900,1400 RF: 0 quetiapine 300 mg tablet 0.5 tab PO BEDTIME RF: 0 trazodone 50 mg Tablet 50 mg PO BEDTIME PRN (Reason: Sleep) RF: 0 atomoxetine 40 mg capsule 1 cap PO QAM RF: 0 melatonin 5 mg Tablet 5 mg PO BEDTIME PRN (Reason: Sleep) RF: 0 Referrals: Palmira Hansen MD [Physician] - 3 days
[2021-09-10 08:17] VITALS: BP 104/37; PULSE 69; RESP 18; TEMP 35.8; O2SAT 98
--- NOTE | 2021-09-10 08:23 | PC.NURSE ---
Pt in bed states plan for surgery today for 12, Shona BARROW to confirm details of plan. Pt encouraged not to eat or drink pending plan. Limited asessment of finger d/t pt compliant but appears necrotic/black
[2021-09-10 08:55] LABS: MANUAL DIFF FLAG NO
[2021-09-10 08:56] LABS: Basophils Percent Auto 0.5 % (0-2); Eosinophils Absolute Auto 0.4 X10*3/uL (0.0-0.4); Eosinophils Percent Auto 6.3 % (0-4); Hematocrit 36.8 % (37.0-47.0); Imm Gran Abs Auto 0.01 X10*3/uL (0.00-0.03); Imm Gran Pct Auto 0.2 % (0.0-0.4); Lymphocytes Absolute Auto 3.1 X10*3/uL (1.2-4.9); Lymphocytes Percent Auto 47.7 % (20-40); Mean Corpuscular HGB Conc 32.6 g/dl (31.0-35.0); Mean Corpuscular Hemoglobin 30.5 pg (27.0-33.0); Mean Corpuscular Volume 93.4 fL (80.0-98.0); Mean Platelet Volume 10.2 fL (9.4-12.3); Monocytes Absolute Auto 0.7 X10*3/uL (0.1-1.2); Monocytes Percent Auto 9.9 % (2-11); Neutrophils Absolute Auto 2.3 x10*3/uL (2.0-8.3); Neutrophils Percent Auto 35.4 % (45-73); Platelet Count 216 X10*3/uL (160-400); Red Blood Count 3.94 X10*6/uL (4.20-5.50); Red Cell Distribution Width 13.2 % (11.0-16.0); White Blood Count 6.6 X10*3/uL (4.8-10.8)
[2021-09-10 08:57] LABS: COVID-19 Test Negative (Negative)
[2021-09-10] MEDS: Piperacillin Sodium/Tazobactam 3.375 GM in 0.9 % Sodium Chloride 50 ML IV (09:03)
[2021-09-10 09:05] LABS: Lactic Acid 1.7 mmol/L (0.5-2.0)
[2021-09-10 09:25] LABS: Ethanol < 10 mg/dL
[2021-09-10 09:33] LABS: Alanine Aminotransferase 297 U/L (0-31); Albumin Level 3.4 g/dL (3.5-5.0); Alkaline Phosphatase 62 U/L (39-117); Anion Gap 11 (12-20); Aspartate Amino Transferase 227 U/L (5-31); Bilirubin Direct < 0.2 mg/dL (0.0-0.5); Bilirubin Total 0.3 mg/dL (0.0-1.0); Blood Urea Nitrogen 16 mg/dL (9-16); Calcium 9.3 mg/dL (8.4-10.2); Carbon Dioxide 32 mmol/L (22-29); Chloride 101 mmol/L (96-108); Estimated Glomerular Filt Rate > 60; Glucose Random 97 mg/dL (60-115); Magnesium 2.1 mg/dL (1.6-2.6); Potassium 3.7 mmol/L (3.3-5.1); Sodium 140 mmol/L (135-145)
[2021-09-10] MEDS: vancomycin HCL 1,000 MG in 0.9 % Sodium Chloride 250 ML 270 MG IV (09:42)
--- NOTE | 2021-09-10 09:42 | PHA.MEDREC ---
Pharmacy Consult ? Medication Reconciliation Pharmacy has completed the medication reconciliation. Patient was in ED 09/08/2021. Med rec completed by Simon Dunlap. Ирина Robert, SofiaD
[2021-09-10 10:09] VITALS: BP 91/43; PULSE 74; RESP 16; O2SAT 97
[2021-09-10 10:44] VITALS: BP 100/39; PULSE 81; RESP 16; O2SAT 98
--- NOTE | 2021-09-10 13:22 | MHC.RECOVSUP ---
Addendum entered by Morgan Ferrari 09/10/21 13:43: Continuing bed search as patient has returned to the ED. Original Note: ? Reason for consult:Recovery Support o Current location:Discharged o Identified substance use concern:Heroin - Withdrawal - Seeking ATS (detox) - Support ? Intervention: o ATS bed search started/completed/in process o Harm reduction discussion ? Plan: o Bed search in progress to o Patient to follow up with [facility] after discharge ? Additional information: Patient seeking detox, patient eloped after completing intake with Muriel De Guzman.
== END 2021-09-10 14:06 | disposition home or self-care (01) ==
PROVIDERS: Physician Assistant; Emergency Provider Emergency Medicine Emergency Medical Services; PCP Nurse Practitioner Family
DX: I96 Gangrene, not elsewhere classified (principal); M79.645 Pain in left finger(s); Z20.822 Contact with and (suspected) exposure to COVID-19; F11.10 Opioid abuse, uncomplicated; F14.10 Cocaine abuse, uncomplicated; F17.200 Nicotine dependence, unspecified, uncomplicated
CPT/HCPCS: 80048; 80076; 82077; 83605; 83735; 85025; 87040; 87635; 96365; 96375; 99284; 99291; J2543; J3370

== ENCOUNTER 2021-09-12 10:00 | Emergency (ER) | payer OTHER, SELFPAY ==
[2021-09-12 10:09] VITALS: BP 116/67; PULSE 84; O2SAT 99
[2021-09-12 10:33] VITALS: BP 100/55; PULSE 56; RESP 19; TEMP 36.6; O2SAT 99; BMI 21.4
[2021-09-12 17:10] VITALS: BP 91/31; PULSE 69; RESP 16; TEMP 36.9; O2SAT 99
--- NOTE | 2021-09-12 17:16 | ED.GENADULT ---
HPI - General Adult General Chief complaint: General Medical Stated complaint: finger infection Time Seen by Provider: 09/12/21 10:10 Source: patient Mode of arrival: ambulatory Limitations: no limitations History of Present Illness HPI narrative: 26-year- old female IV drug user presents to the ED for left finger necrosis. Patient states this time she is agreeable for admission get the help she needs. Patient denies worsening finger necrosis, fever, chills, weakness, nausea, vomiting, abdominal pain. Patient has had this ongoing issue since beginning of august for condition but continusaaly signed out against medical advice Related Data Home Medications Medication Instructions Recorded Confirmed clindamycin HCl 150 mg capsule 1 cap PO TID 08/27/21 09/10/21 atomoxetine 40 mg capsule 1 cap PO QAM 09/08/21 09/10/21 melatonin 5 mg tablet 5 mg PO BEDTIME PRN 09/08/21 09/10/21 quetiapine 25 mg tablet 25 mg PO BID@0900,1400 09/08/21 09/10/21 quetiapine 300 mg tablet 0.5 tab PO BEDTIME 09/08/21 09/10/21 trazodone 50 mg tablet 50 mg PO BEDTIME PRN 09/08/21 09/10/21 Previous Rx's Medication Instructions Recorded hydroxyzine HCl 25 mg tablet 25 mg PO TID PRN 30 Days #90 tab 05/15/21 amoxicillin 875 mg-potassium 1 tab PO BID #20 tab 09/10/21 clavulanate 125 mg tablet (Augmentin) Allergies Allergy/AdvReac Type Severity Reaction Status Date / Time orange [ORANGES] Allergy Intermediate HIVES Verified 09/10/21 05:21 Sulfa (Sulfonamide Allergy Rash Verified 09/10/21 05:21 Antibiotics) seafood AdvReac Anaphylaxis Verified 09/10/21 05:21 Review of Systems Review of Systems: Left finger necrosis. No other symptoms Yes all other systems are reviewed and are negative PMFSH Past Medical History Medical History (Updated 09/12/21 @ 18:17 by PUSHPA Whaley) Anxiety Asthma Bipolar affective Depression PTSD (post-traumatic stress disorder) Substance abuse Social History Social History Household Members: Significant Other Household Members Other:: fiance Housing: Homeless Housing Other:: I live with my fiance. We don't have an apartment. I am not homeless Do you presently have visiting nurse or other home services: No Alcohol intake: never Patient Tobacco Use Status: Current everyday Tobacco user Tobacco use type: Cigarette Cigarette Packs Per Day: 1 Cigarettes Per Day: 20.0 Years Smoked: 11 Second Hand Smoke Exposure: Yes Use of substances other than those prescribed or required for medical reasons: Yes Substance Use Type: Heroin and Marijuana Last Used Substance: Days (ago) Advance Directives: No Advance Directives Information Provided: No Patient : No service: No Sexual orientation: Don't Know Physical Exam Vital Signs: Vital Signs: Last Vital Signs Temp 98.5 F 09/12/21 17:10 Pulse 69 09/12/21 17:10 Resp 16 09/12/21 17:10 BP 91/31 L 09/12/21 17:10 Pulse Ox 99 09/12/21 17:10 BMI result Body Mass Index 21.4 Const: General: cooperative, healthy appearing, comfortable, no acute distress, well developed, alert, awake and Physically active; No acute distress Orientation/consciousness: patient oriented x3 HENMT: Head: Yes normal to inspection, Yes No palpable skull fracture present, Yes normocephalic, Yes atraumatic and No abrasion Eyes: General: appearance normal, both eyes and all related structures Neck: Neck: Yes normal visual inspection, Yes full ROM, Yes no lymphadenopathy, Yes no meningeal signs, Yes trachea midline, Yes supple, No anterior neck swelling and No tender Chest: Chest palpation & inspection: normal inspection of the chest and normal palpation of entire chest wall Resp: Effort & Inspection: normal respiratory effort and able to speak in complete sentences Auscultation: clear to auscultation bilaterally Cardio: Jugular venous distension: no JVD Heart sounds: S1 normal heart sound present and S2 normal heart sound present GI: Inspection: Yes normal to inspection and No abdominal wall ecchymosis Palpation (GI): Soft to palpation, not firm, nontender, no guarding and not rigid : General: No CVA tenderness and Yes no CVA tenderness Back/Spine/Pelvis: Back: no CVA tenderness, No CVA tenderness and No back tenderness Skin: General skin exam: no rashes or lesions noted and elasticity normal Neuro: General: patient oriented x3, gait normal, no meningeal signs and CN's II-XI intact bilaterally Cranial nerves: Yes CN's II-XII intact bilaterally Extrem: Other: No capillary refill. Other fingers are normal rest of extremity motor/neuro/vascular exam intact General: Yes normal to inspection and Yes full ROM Psych: Appearance: grossly normal, well kempt and not disheveled Course Course Course Narrative: Will discuss case with Orthopedic surgery Reevaluation(s) Reevaluation #1: Patient notes were reviewed and shows that patient had diagnosis of left finger necrosis since the and has signed out multiple times against medical advice which delayed IV antibiotics and surgical intervention. Before necrosis of finger patient has tenosynovitis of finger that was drained by Dr. Duncan on 08/29. Patient was last seen by Dr. Hansen on the who states there was no indication for emergent surgical intervention and patient have schedule surgery on the 09/17/21. Patient is on oral antibiotics. Plan is to contact Orthopedic on-call. Blood pressure soft but the patient is well-appearing. Rest of patient's vital signs are stable. Patient eating food and watching television Time: 17:30 Reevaluation #2: Case was discussed with Orthopedic PUSHPA Mata who discussed case with Covering Attendant Dr. Giles. They states no need for admission for surgical intervention or any medical intervention. Do not recommend admission for IV antibiotics.. THey states presently there is no emergent indication and patient can come for scheduled day of surgery on the 17 of September. They are also aware patient's history signing against medical advice and delaying the procedure. They state no surgery or medical admission needed for dry gangrene of the finger. Labs, and blood culture were canceled. Case discussed with Dr. Matthew who agree with plan. Patient is already on oral antibiotics. Patient was informed to return to the ED immediately if she has fever, weakness, chills, chest pain, shortness of breath, pus discharge, foul odor, or any other concerning symptoms. Time: 18:36 Discharge Plan Discharge Clinical Impression: Finger infection, Opioid use disorder Patient Disposition: Home, Self-Care Instructions: Gangrene (DC), Opioid Use Disorder (ED) Additional Instructions: Please follow-up with your surgeon Dr. Hansen on for the scheduled surgical procedure on your finger. Return to the ED for any concerning symptoms. Prescriptions: No Action hydroxyzine HCl 25 mg Tablet 25 mg PO TID PRN (Reason: Anxiety) 30 Days Qty: 90 RF: 0 clindamycin HCl 150 mg capsule 1 cap PO TID RF: 0 amoxicillin-pot clavulanate [Augmentin] 875-125 mg tablet 1 tab PO BID Qty: 20 RF: 0 quetiapine 25 mg tablet 25 mg PO BID@0900,1400 RF: 0 quetiapine 300 mg tablet 0.5 tab PO BEDTIME RF: 0 trazodone 50 mg Tablet 50 mg PO BEDTIME PRN (Reason: Sleep) RF: 0 atomoxetine 40 mg capsule 1 cap PO QAM RF: 0 melatonin 5 mg Tablet 5 mg PO BEDTIME PRN (Reason: Sleep) RF: 0 Referrals: Palmira Hansen MD [Physician] - 2 days (Scheduled for surgery this 09/17) Interventions: ED Discharge Assessment Last Done: 09/12/21 18:48 Discharge Date/Time: 09/12/21 18:49 Print Language: Occitan
== END 2021-09-12 18:49 | disposition home or self-care (01) ==
PROVIDERS: Emergency Provider Emergency Medicine Emergency Medical Services
DX: L08.9 Local infection of the skin and subcutaneous tissue, unspecified (principal); F19.10 Other psychoactive substance abuse, uncomplicated; F17.200 Nicotine dependence, unspecified, uncomplicated
CPT/HCPCS: 96360; 99284

== ENCOUNTER → 2021-09-17 08:55 | Day surgery (SDC) | payer OTHER, SELFPAY ==
--- NOTE | 2021-09-09 14:28 | HO.ANESPROP2 ---
Documented by User: Jenn Do NP 09/09/21 14:30 HPI - Anesthesia Eval Consult details Narrative: 26yo F for Left I&D middle finger possible amputation s/p L finger I&D 08/27/21 with GA-LMA 4 + Current polysubstance abuse PMFSH Active Problems Active Problems: All Active Problems (Updated 09/08/21 @ 22:33 by Akilah Andrade NP) Finger infection (Acute) Flexor tenosynovitis of finger (Acute) Depression (Acute) Opioid use disorder (Acute) Cocaine use disorder (Acute) Past Medical History Medical History (Updated 09/17/21 @ 09:37 by Miranda Toth RN) Anxiety Asthma Bipolar affective Depression PTSD (post-traumatic stress disorder) Seizure Substance abuse Family History Family history of problems with anesthesia: No Surgical History Surgical History (Updated 09/17/21 @ 09:21 by Miranda Toth RN) Hx of hand surgery History of Problems with Anesthesia: No Social History Social History Household Members: Significant Other Household Members Other:: fiance Housing: Homeless Housing Other:: I live with my fiance. We don't have an apartment. I am not homeless Do you presently have visiting nurse or other home services: No Alcohol intake: never Patient Tobacco Use Status: Current everyday Tobacco user Tobacco use type: Cigarette Cigarette Packs Per Day: 1 Cigarettes Per Day: 20.0 Years Smoked: 11 Second Hand Smoke Exposure: Yes Use of substances other than those prescribed or required for medical reasons: Yes Substance Use Type: Heroin and Marijuana Substance Use Frequency: Occasionally Are you DNR?: No Advance Directives: No Advance Directives Information Provided: Yes service: No Sexual orientation: Don't Know Meds Allergies Allergy/AdvReac Type Severity Reaction Status Date / Time orange [ORANGES] Allergy Intermediate HIVES Verified 09/10/21 05:21 Sulfa (Sulfonamide Allergy Rash Verified 09/10/21 05:21 Antibiotics) seafood AdvReac Anaphylaxis Verified 09/10/21 05:21 Home Medications Medication Instructions Recorded Confirmed Last Taken Type clindamycin HCl 150 mg capsule 1 cap PO TID 08/27/21 09/10/21 Unknown History atomoxetine 40 mg capsule 1 cap PO QAM 09/08/21 09/10/21 Unknown History melatonin 5 mg tablet 5 mg PO BEDTIME PRN 09/08/21 09/10/21 Unknown History quetiapine 25 mg tablet 25 mg PO BID@0900,1400 09/08/21 09/10/21 Unknown History quetiapine 300 mg tablet 0.5 tab PO BEDTIME 09/08/21 09/10/21 Unknown History trazodone 50 mg tablet 50 mg PO BEDTIME PRN 09/08/21 09/10/21 Unknown History Exam Exam Date and Time: September 09, 2021 1428 Pertinent Lab Results Pertinent Lab Results: Laboratory Tests 09/08/21 09/08/21 16:16 16:16 WBC 7.7 Hgb 13.0 Hct 40.3 Plt Count 239 D Sodium 140 Potassium 4.3 Chloride 105 Carbon Dioxide 27 BUN 18 H Creatinine 0.73 Assessment and Plan Assessment Anesthesia Assessment: Chart Reviewed Final Anesthetic Review Family History of Problems with Anesthesia: No History of Problems with Anesthesia: No Documented by User: Jona Hampton MD 09/17/21 14:23 HPI - Anesthesia Eval Consult details Narrative: 26yo F for Left I&D middle finger possible amputation s/p L finger I&D 08/27/21 with GA-LMA 4 + Current polysubstance abuse. Preop urine screen positive for cocaine, fentanyl, THC. During her stay in preop, patient went to the restroom locked herself in there for an extended period of time. Came out of the bathroom after university relations director spoke with her. Stated that she was reading a book upon exiting the restroom. At the time of my interview, patient noted to be dosing off mid conversation and unable to converse coherently. When inquired how she was doing, patient stated I am high . Heart rate in the low 50s. [facility] Past Medical History Medical History (Updated 09/17/21 @ 09:37 by Miranda Toth RN) Anxiety Asthma Bipolar affective Depression PTSD (post-traumatic stress disorder) Seizure Substance abuse Surgical History Surgical History (Updated 09/17/21 @ 09:21 by Miranda Toth RN) Hx of hand surgery Social History Social History Household Members: Significant Other Household Members Other:: fiance Housing: Homeless Housing Other:: I live with my fivianca. We don't have an apartment. I am not homeless Do you presently have visiting nurse or other home services: No Alcohol intake: never Patient Tobacco Use Status: Current everyday Tobacco user Tobacco use type: Cigarette Cigarette Packs Per Day: 1 Cigarettes Per Day: 20.0 Years Smoked: 11 Second Hand Smoke Exposure: Yes Use of substances other than those prescribed or required for medical reasons: Yes Substance Use Type: Heroin and Marijuana Substance Use Frequency: Occasionally Are you DNR?: No Advance Directives: No Advance Directives Information Provided: Yes service: No Sexual orientation: Don't Know Meds Allergies Allergy/AdvReac Type Severity Reaction Status Date / Time orange [ORANGES] Allergy Intermediate HIVES Verified 09/10/21 05:21 Sulfa (Sulfonamide Allergy Rash Verified 09/10/21 05:21 Antibiotics) seafood AdvReac Anaphylaxis Verified 09/10/21 05:21 Home Medications Medication Instructions Recorded Confirmed Last Taken Type clindamycin HCl 150 mg capsule 1 cap PO TID 08/27/21 09/10/21 Unknown History atomoxetine 40 mg capsule 1 cap PO QAM 09/08/21 09/10/21 Unknown History melatonin 5 mg tablet 5 mg PO BEDTIME PRN 09/08/21 09/10/21 Unknown History quetiapine 25 mg tablet 25 mg PO BID@0900,1400 09/08/21 09/10/21 Unknown History quetiapine 300 mg tablet 0.5 tab PO BEDTIME 09/08/21 09/10/21 Unknown History trazodone 50 mg tablet 50 mg PO BEDTIME PRN 09/08/21 09/10/21 Unknown History Assessment and Plan Final Anesthetic Review NPO: No (Unknown) ASA Class: III Anesthetic Plan Anesthetic Plan: Other (Case cancelled after discussion w/ surgeon; case not deemed emergent to proceed with the patient unable to provide consent)
[2021-09-17 09:38] VITALS: BP 99/33; PULSE 62; RESP 16; TEMP 36.5; O2SAT 97; BMI 22.4
[2021-09-17 09:52] LABS: Amphetamine Screen Urine Not Detected (Not Detect); Barbiturates, Urine Not Detected (Not Detect); Benzodiazepines Screen Urine Not Detected (Not Detect); Cannabinoid Screen Urine POSITIVE (Not Detect); Cocaine Screen Urine POSITIVE (Not Detect); Fentanyl, urine POSITIVE (Not Detect); Opiate Screen Urine POSITIVE (Not Detect); Phencyclidine Screen Urine Not Detected (Not Detect)
[2021-09-17] MEDS: Lactated Ringers 1,000 ML 100 ML IVCONT (10:27)
[2021-09-17 10:38] LABS: UPreg QC Valid YES; Urine Pregnancy NEGATIVE (NEGATIVE)
--- NOTE | 2021-09-17 11:11 | PC.NURSE ---
when pt was changing behind closed curtain, i heard the needle box. pt denied any drugs or weapons on self while doing belonging list. pt requested to have curtain closed but told we have to keep open to monitor her rythym. when asked to put her belongings belongings in pacu she stated she needed to get something in her pocket. then later on stated she needed to use bathroom and was taking her book. stated she needed to have bowel movement. transaction advisory services manager knocked on door due to past od hx, no drugs found. continued in br and once came out showed book to transaction advisory services manager per request, no drugs found. br smelling of smoke but denied smoking. transaction advisory services manager and anesthesia aware.
--- NOTE | 2021-09-17 12:25 | PC.NURSE ---
MD GUERRERO BY BEDSIDE AND CANCELLED PATIENT AND SHE BECAME AGGRESSIVE AND AGITATED. YELLING AND SWEARING BLAMING OTHERS. SHE WAS MADE AWARE OF THE REASONING BECAUSE OF HER BECK RESULTS. PATIENT CONTINUED TO YELL AND SCREAM AND SWEAR AT STAFF AND DOCTOR. SECURITY WAS CALLED BY STAFF AND ESCORTED OUT TO THE FRONT OF THE HOSPITAL. ALL BELONGINGS GIVEN TO PATIENT. WAS ON PHONE WITH GRANDMOTHER PER PATIENT. IV REMOVED. WRAPPED HAND WITH DRY STERILE DRESSING AND CAMI WRAP. PRIOR TO PROCEDURE PATIENT WAS SITTING UP RIGHT IN BED SLEEPING.
--- NOTE | 2021-09-17 16:21 | P.PNOP_ITS ---
Subjective Subjective Date of Service: 09/17/21 Principal diagnosis: left middle finger infection/ necrosis Interval history: The patient is a 26-year-old woman with a history of recent IV drug use issues and a left middle finger infection that is status post I and D in the emergency department on 08/26/2021, and again in the operating room with me on 08/27/2021. She left against medical advice without taking antibiotics following that procedure. She also missed her postoperative follow-up clinic appointment that next week. She was then seen in our clinic on 09/08/2021 and she was found to have developed circumferential necrosis distal to the PIP joint. She did not want to let us touch her hand in clinic to further evaluate this, and we had concerns about drug use in our clinic bathroom during her visit. She was then escorted to the emergency department by security so that she could be admitted and taken to the operating room the next morning. However, she again left AMA. She was then in the emergency department again on 09/10/2021 and we attempted to put her on the operating room schedule for debridement that day. However, she refused to stay NPO and continued to eat in the emergency department even after this was discussed with her several times. Fortunately, she did not appear to have any swelling or erythema that would have been worrisome for cellulitis or acute purulent infection. Her surgery was canceled, as she was not NPO for surgery. She again did not show for her follow-up clinic appointment the next week, but we did get a phone call indicating that she was planning to show for surgery on 09/17/2021. She was scheduled for a debridement of her left middle finger today. She was seen in preop hold and told me that she did not want an amputation but would agree to a debridement. Her tox screen was positive today for cocaine use, Fentanyl, opioids and marijuana. Our Anesthesia attendings were working with me to figure out how we could possibly bring her back to the operating room so we could do this debridement. Subsequently however, the patient evidently went into the bathroom in preop hold with her bag and there was concern about drug use while in the bathroom, as she was significantly less responsive after that visit to the restroom. Her heart rate also was reportedly down at 50 beats per minute. After talking with Anesthesia we agreed to cancel her case. Again she does have some necrosis of the left middle finger. The depth of the necrosis is not clear, and it is difficult to evaluate her as she will not allow us to touch her finger. Fortunately, again however, she did not have any swelling or erythema associated with this in any part of her hand. I explained the patient that we needed to cancel her case again because of her drug use. She became angry, yelling and using profanity in the preop hold area. She also blamed me and said that she would be getting an litigation attorney to Sarah me. It is my understanding that the nurses needed to get security to ultimately to escort her from the area. It is also my understanding that the patient's mother cursed out our OR nursing curb supervisor, Linda, when she informed her that her daughter's case has been canceled again because of drug use. Physical Exam Verdana 4l Vital Signs: Verdana 4d Verdana 4d Vital Signs: Verdana 4d Verdana 4Bd Last Vital Signs Verdana 4d Vault Manager New 4d Vault Manager New 4d Temp 97.7 F 09/17/21 09:38 Vault Manager New 4d Pulse 62 09/17/21 09:38 Vault Manager New 4d Resp 16 09/17/21 09:38 BP 99/33 L 09/17/21 09:38 Pulse Ox 97 09/17/21 09:38 BMI result Body Mass Index 22.4 Procedures Date of Service Date of Service: 09/17/21 Progress Note: A&P Fall Risk Details Current Medications: Current Medications Albuterol Sulfate (Albuterol Sulfate (0.083%) 2.5 Mg/3 Ml Vial.Neb) 2.5 mg INHALE ONCE PRN PRN Reason: Shortness of Breath/Wheezing Lactated Ringer's (Lr) 1,000 mls @ 100 mls/hr IVCONT .Q10H ESTHER Last Admin: 09/17/21 10:27 Dose: 100 mls/hr Documented by: Time Spent With Patient Time: Total time spent is greater than 50% in coordination of care (as documented) at patient's floor/unit and/or counseling patient: Time with patient: 15 - 24 minutes Quality Stroke Does the patient have a stroke diagnosis?: No VTE Prior VTE?: No VTE Risk Level:: Surgical - low VTE Device Contraindication: Procedure Contraindicated VTE Drug Contraindication: Treatment Not Indicated
== END ==
PROVIDERS: Nurse Practitioner; PCP Nurse Practitioner Family; Visit Provider Orthopaedic Surgery
DX: L08.9 Local infection of the skin and subcutaneous tissue, unspecified (principal); Z53.09 Procedure and treatment not carried out because of other contraindication; F11.90 Opioid use, unspecified, uncomplicated; F14.90 Cocaine use, unspecified, uncomplicated; F17.210 Nicotine dependence, cigarettes, uncomplicated
CPT/HCPCS: 80307; 81025; J0690

== ENCOUNTER 2021-09-30 18:07 | Emergency (ER) | payer OTHER, SELFPAY ==
--- NOTE | ~2021-09-30 | XR_ITS ---
EXAMINATION: XR HAND, LEFT CLINICAL INFORMATION: Middle finger infection COMPARISON: Left hand x-rays 08/25/2021 TECHNIQUE: PA, lateral, and oblique views of the left hand. Today's x-rays were obtained in suboptimal positioning as the patient is currently unresponsive. FINDINGS: Again noted is diffuse soft tissue swelling throughout the distal aspect of the third finger. There is some skin irregularity possibly represents skin breakdown or overlying bandage. There is mild underlying cortical irregularity of the tuft of the third finger. The proximal and middle phalanx of the third digit demonstrate no gross cortical irregularity. XR/XR hand LT min 3V IMPRESSION: Cortical irregularity involving the tuft of the third finger is concerning for osteomyelitis. Clinical correlation is recommended.
[2021-09-30 19:13] VITALS: BMI 20.5
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
[2021-09-30] MEDS: LORazepam 2 MG/ML VIAL IM (19:41)
[2021-09-30] MEDS: diphenhydrAMINE HCL 50 MG/ML VIAL IM (19:42)
[2021-09-30] MEDS: Haloperidol Lactate 5 MG/ML VIAL IM (19:42)
[2021-09-30 19:52] LABS: Amphetamine Screen Urine Not Detected (Not Detect); Barbiturates, Urine Not Detected (Not Detect); Benzodiazepines Screen Urine Not Detected (Not Detect); Cannabinoid Screen Urine POSITIVE (Not Detect); Cocaine Screen Urine POSITIVE (Not Detect); Fentanyl, urine POSITIVE (Not Detect); Opiate Screen Urine POSITIVE (Not Detect); Phencyclidine Screen Urine Not Detected (Not Detect)
[2021-09-30 20:37] VITALS: BP 115/62; PULSE 97; RESP 18; TEMP 37.4; O2SAT 95
[2021-09-30 21:12] LABS: MANUAL DIFF FLAG NO
[2021-09-30 21:14] LABS: Basophils Percent Auto 0.4 % (0-2); Eosinophils Absolute Auto 0.2 X10*3/uL (0.0-0.4); Eosinophils Percent Auto 2.2 % (0-4); Hematocrit 40.5 % (37.0-47.0); Hemoglobin 13.3 g/dl (12.0-16.0); Imm Gran Abs Auto 0.03 X10*3/uL (0.00-0.03); Imm Gran Pct Auto 0.3 % (0.0-0.4); Lymphocytes Absolute Auto 3.4 X10*3/uL (1.2-4.9); Lymphocytes Percent Auto 35.7 % (20-40); Mean Corpuscular HGB Conc 32.8 g/dl (31.0-35.0); Mean Corpuscular Hemoglobin 29.8 pg (27.0-33.0); Mean Corpuscular Volume 90.8 fL (80.0-98.0); Mean Platelet Volume 10.3 fL (9.4-12.3); Monocytes Absolute Auto 1.2 X10*3/uL (0.1-1.2); Monocytes Percent Auto 13.1 % (2-11); Neutrophils Absolute Auto 4.6 x10*3/uL (2.0-8.3); Neutrophils Percent Auto 48.3 % (45-73); Platelet Count 220 X10*3/uL (160-400); Red Blood Count 4.46 X10*6/uL (4.20-5.50); Red Cell Distribution Width 12.8 % (11.0-16.0); White Blood Count 9.5 X10*3/uL (4.8-10.8)
[2021-09-30 21:28] LABS: COVID-19 Test Negative (Negative)
[2021-09-30 22:00] LABS: Ethanol < 10 mg/dL
[2021-09-30 22:07] VITALS: BP 101/62; PULSE 78; RESP 20; TEMP 37; O2SAT 98
[2021-09-30 22:32] LABS: Alanine Aminotransferase 75 U/L (0-31); Albumin Level 4.3 g/dL (3.5-5.0); Alkaline Phosphatase 64 U/L (39-117); Anion Gap 14 (12-20); Aspartate Amino Transferase 82 U/L (5-31); Bilirubin Total 0.7 mg/dL (0.0-1.0); Blood Urea Nitrogen 26 mg/dL (9-16); Calcium 10.1 mg/dL (8.4-10.2); Carbon Dioxide 27 mmol/L (22-29); Chloride 98 mmol/L (96-108); Creatinine Clr Calc Pharmacy 75.1; Estimated Glomerular Filt Rate > 60; Glucose Random 112 mg/dL (60-115); Magnesium 2.1 mg/dL (1.6-2.6); Potassium 3.7 mmol/L (3.3-5.1); Sodium 135 mmol/L (135-145); Total Protein 8.2 g/dL (6.5-8.0)
--- NOTE | 2021-09-30 22:35 | PC.NURSE ---
INFORMING IVY BARROW AND PRIMARY RN OLYA FOR PATIENT CRITICAL CK LAB VALUE
[2021-09-30] MEDS: 0.9 % Sodium Chloride 1,000 ML 999 ML IV (23:27)
[2021-10-01] MEDS: 0.9 % Sodium Chloride 1,000 ML 999 ML IV ×2 (00:28→01:42)
[2021-10-01 02:59] VITALS: BP 107/66; PULSE 66; RESP 14; TEMP 36.7; O2SAT 97
--- NOTE | 2021-10-01 03:21 | PC.NURSE ---
ASSUMING CARE OF PTIENT AT THIS TIME FROM OLYA LUI. PATIENT SLEEPING WITH SITTER IN PLACE FOR SAFETY. PATIENT'S BREATHING IS EVEN AND UNLABORED, SKIN IS DRY AND WARM. AWAITING RESULT FROM LAB WORK AT THIS TIME.
[2021-10-01 03:31] LABS: Alanine Aminotransferase 53 U/L (0-31); Albumin Level 3.1 g/dL (3.5-5.0); Alkaline Phosphatase 45 U/L (39-117); Anion Gap 11 (12-20); Aspartate Amino Transferase 62 U/L (5-31); Bilirubin Total 0.5 mg/dL (0.0-1.0); Blood Urea Nitrogen 16 mg/dL (9-16); Calcium 7.6 mg/dL (8.4-10.2); Carbon Dioxide 19 mmol/L (22-29); Chloride 110 mmol/L (96-108); Creatinine Clr Calc Pharmacy 97.3; Estimated Glomerular Filt Rate > 60; Glucose Random 65 mg/dL (60-115); Sodium 136 mmol/L (135-145); Total Protein 5.9 g/dL (6.5-8.0)
--- NOTE | 2021-10-01 03:36 | PC.NURSE ---
CRISITCAL VALUE ON CK OF [address] BOWERS. DECREASE FROM PREVIOUS DRAW.
[2021-10-01] MEDS: 0.9 % Sodium Chloride 1,000 ML 125 ML IVCONT ×2 (03:54→16:19)
[2021-10-01 07:41] VITALS: BP 104/64; PULSE 82; RESP 18; O2SAT 97
--- NOTE | 2021-10-01 08:58 | MHC.CARE ---
7940 ? Attempted to awaken pt to conduct a consult.? Pt did not respond after several loud knocks and calling of her name.? CARE Team will attempt to consult later.
[2021-10-01 09:37] VITALS: BP 106/49; PULSE 80; RESP 16; O2SAT 94
--- NOTE | 2021-10-01 10:05 | MHC.CARE ---
904 ? Pt is a 26 y/o Cymro speaking, female who is previously known to CARE Team through prior ED visits.? Yesterday, pt arrived at the ED via ambulance after a bystander found pt sleeping in the street and called 911.? When pt awoke at this facility she began acting erratically, was uncooperative, screaming, and combative toward staff members and security.? Pt reported to CARE Team that yesterday evening, she entered a [employer] shop to charge her phone, while there; she ?took something.?? Pt could/would not divulge what it was she took at the pizza shop, nor could she recall how she found her way into the road and fell asleep.? Pt has a past documented hx of substance use. Pt is alert and oriented x4 and is assessed in her room in the main ED.? Pt was difficult to awaken initially but soon awoke.? She is disheveled, thin, and appears older than her stated age.? She is dressed in hospital attire.? She is minimally engaged and does not appear interested in help.? Her eye contact and speech are unremarkable.? Sleep and appetite were not discussed though she did seem pleased that her breakfast tray was at bedside.? She described her mood as ?tired?.? Her affect varied at times.? Pt does not appear delusional or experiencing symptoms of psychosis.? She denies AVH, HI, SI, and self-harm urges.? She stated that she has no prior attempts to complete suicide nor has she had any prior SI.? Insight, judgement memory and concentration are fair. Pt does not appear to be a danger to herself or others, beyond her substance use.? CARE Team will contact the Recovery Team to put pt in contact with resources should she want them.
--- NOTE | 2021-10-01 10:19 | MHC.RECOVSUP ---
Addendum entered by Morgan Ferrari 10/01/21 13:52: Patient changed her mind and wants to go to detox. Patient did an intake with [facility]. Original Note: ? Reason for consult:Recovery Support o Current location:ED-7 o Identified substance use concern:Polysubstance - Overdose - Support ? Intervention: o Community resources provided o Harm reduction discussion ? Plan: o Referral to CCC o Patient to follow up with H after discharge ? Additional information:Attempted to speak with PT..,patient was disengaged, patient refuses detox or mat. Gave patient community resources.
[2021-10-01 11:13] VITALS: BP 92/57; PULSE 45; RESP 16; O2SAT 98
[2021-10-01 15:32] VITALS: BP 125/61; PULSE 80; RESP 18; O2SAT 97
[2021-10-01 17:50] LABS: Appearance Urine CLEAR; Color Urine YELLOW; Glucose Urine UA NEG (NEG); Leukocyte Esterase Urine NEG (NEG); Nitrite Urine NEG (NEG); Specific Gravity - Urine 1.025 (1.005-1.025); Urine Blood NEG (NEG); Urine Ketones 15 MG/DL (NEG); Urine Protein NEG (NEG-TRACE)
[2021-10-01 17:59] LABS: Amphetamine Screen Urine Not Detected (Not Detect); Barbiturates, Urine Not Detected (Not Detect); Benzodiazepines Screen Urine Not Detected (Not Detect); Cannabinoid Screen Urine POSITIVE (Not Detect); Cocaine Screen Urine POSITIVE (Not Detect); Fentanyl, urine POSITIVE (Not Detect); Opiate Screen Urine POSITIVE (Not Detect); Phencyclidine Screen Urine Not Detected (Not Detect)
[2021-10-02] MEDS: 0.9 % Sodium Chloride 1,000 ML 999 ML IV (00:35)
[2021-10-02] MEDS: 0.9 % Sodium Chloride 1,000 ML 125 ML IVCONT (03:10)
[2021-10-02 04:27] VITALS: BP 119/79; PULSE 69; RESP 16; O2SAT 98
[2021-10-02] MEDS: LORazepam 1 MG TABLET 2 MG PO ×2 (05:18→12:46)
--- NOTE | 2021-10-02 05:53 | PC.NURSE ---
Unable to complete [place] and psychiatrics pt is sleeping at this time.
--- NOTE | 2021-10-02 07:35 | PC.NURSE ---
not a section 12- pt to go to [facility] if [facility] available
[2021-10-02 10:07] VITALS: BP 107/59; PULSE 87; RESP 12; TEMP 37.1; O2SAT 98
--- NOTE | 2021-10-02 10:56 | MHC.RECOVSUP ---
Recovery Support note: Patient has been accepted for admission at [facility]. Admission time 1500. ED provider aware. This insurance underwriter will arrange transportation.
[2021-10-02 12:00] VITALS: BP 131/77; PULSE 95; RESP 18; O2SAT 98
--- NOTE | 2021-10-02 12:49 | PC.NURSE ---
Pt c/o anxiety and withdrawal symptoms. Pt medicated with PRN ativan per MAR order.
--- NOTE | 2021-10-02 13:39 | PC.NURSE ---
Family member at pts bedside and concerned about pts middle finger on her left hand. Finger is swollen and red. Necrotic appearing tissue present. Per family, pt was supposed to have finger amputated about a week ago. She is concerned that the detox facility will not keep her if she has an ongoing infection. Will notify provider to assess pts left middle finger.
== END 2021-10-02 15:01 | disposition other institution (70) ==
PROVIDERS: Physician Assistant; Emergency Provider Emergency Medicine; PCP Internal Medicine
DX: M62.82 Rhabdomyolysis (principal); F14.10 Cocaine abuse, uncomplicated; F11.99 Opioid use, unspecified with unspecified opioid-induced disorder; M87.9 Osteonecrosis, unspecified; R94.4 Abnormal results of kidney function studies; Z20.822 Contact with and (suspected) exposure to COVID-19; Z48.02 Encounter for removal of sutures; F12.90 Cannabis use, unspecified, uncomplicated; F17.200 Nicotine dependence, unspecified, uncomplicated; F43.10 Post-traumatic stress disorder, unspecified; F41.9 Anxiety disorder, unspecified; F31.9 Bipolar disorder, unspecified; Z79.899 Other long term (current) drug therapy
CPT/HCPCS: 36415; 73130; 80053; 80307; 81003; 82077; 82550; 83735; 85025; 87635; 96360; 96361; 96372; 99285; J1200; J2060

== ENCOUNTER 2022-04-12 15:19 | Emergency (ER) | payer OTHER, SELFPAY ==
[2022-04-12 15:32] VITALS: BP 124/64; PULSE 88; O2SAT 100
--- NOTE | 2022-04-12 16:13 | PC.NURSE ---
pt came in by ambulance, this nurse called patient to triage and pt was not found in the [facility], pt called 2 additional times with no answer, charge is aware.
== END 2022-04-12 16:17 | disposition left against medical advice (07) ==
PROVIDERS: Emergency Provider Emergency Medicine
DX: M79.604 Pain in right leg (principal)

== ENCOUNTER 2022-05-12 00:10 | Emergency (ER) | payer OTHER, SELFPAY ==
[2022-05-12 00:20] VITALS: BP 100/70; PULSE 78; RESP 16; TEMP 36.6; O2SAT 98; BMI 14.6
--- NOTE | 2022-05-12 01:51 | PC.NURSE ---
pt refusing labs
--- NOTE | 2022-05-12 01:52 | PC.NURSE ---
pt called multiple time to have labs drawn. pt sleeping and refusing to drawn at this time.
--- NOTE | 2022-05-12 03:59 | PC.NURSE ---
ATTEMPTED BLOOD DRAW, PT WILL NOT SIT STILL FOR LABS, PULLING AWAY WHEN NEEDLE IN INSERTED. PT GRABBING TECHS HAND WHILE NEEDLE IS INSERTED. UNSAFE TO DRAW PT AT THIS TIME.
[2022-05-12 04:39] LABS: Hematocrit 41.3 % (37.0-47.0); Hemoglobin 13.5 g/dl (12.0-16.0); Mean Corpuscular HGB Conc 32.7 g/dl (31.0-35.0); Mean Corpuscular Volume 91.8 fL (80.0-98.0); Mean Platelet Volume 10.2 fL (9.4-12.3); Platelet Count 184 X10*3/uL (160-400); Red Cell Distribution Width 13.2 % (11.0-16.0); White Blood Count 6.4 X10*3/uL (4.8-10.8)
[2022-05-12 04:57] LABS: Alanine Aminotransferase 75 U/L (0-31); Albumin Level 3.7 g/dL (3.5-5.0); Alkaline Phosphatase 71 U/L (39-117); Anion Gap 16 (12-20); Aspartate Amino Transferase 45 U/L (5-31); Bilirubin Total 0.2 mg/dL (0.0-1.0); Blood Urea Nitrogen 19 mg/dL (9-16); Calcium 8.8 mg/dL (8.4-10.2); Carbon Dioxide 21 mmol/L (22-29); Chloride 108 mmol/L (96-108); Creatinine Clr Calc Pharmacy 69.8; Estimated Glomerular Filt Rate > 60; Glucose Random 135 mg/dL (60-115); Potassium 3.2 mmol/L (3.3-5.1); Sodium 142 mmol/L (135-145); Total Protein 7.1 g/dL (6.5-8.0)
--- NOTE | 2022-05-12 05:17 | PC.NURSE ---
labs collected and sent. pt left and then came back. Drink and food given. per provider have pt stay here until 6am, give detox information in am.
--- NOTE | 2022-05-12 05:22 | ED_ITS ---
HPI - General Adult General Chief complaint: General Medical Stated complaint: General Medical Time Seen by Provider: 05/12/22 01:15 History of Present Illness HPI narrative: Patient is a 27-year-old female presented today with a long history of polysubstance abuse. Positive history of cocaine and heroin abuse. Patient presents today wanting detox. Denies any suicidal homicidal ideation. No fever no chills no chest pain or of breath patient just got out detox. Last use was yesterday. Related Data Home Medications Medication Instructions Recorded Confirmed clindamycin HCl 150 mg capsule 1 cap PO TID 08/27/21 09/10/21 atomoxetine 40 mg capsule 1 cap PO QAM 09/08/21 09/10/21 melatonin 5 mg tablet 5 mg PO BEDTIME PRN Sleep 09/08/21 09/10/21 quetiapine 25 mg tablet 25 mg PO BID@0900,1400 09/08/21 09/10/21 quetiapine 300 mg tablet 0.5 tab PO BEDTIME 09/08/21 09/10/21 trazodone 50 mg tablet 50 mg PO BEDTIME PRN Sleep 09/08/21 09/10/21 Previous Rx's Medication Instructions Recorded hydroxyzine HCl 25 mg tablet 25 mg PO TID PRN Anxiety 30 days 05/15/21 #90 tabs amoxicillin 875 mg-potassium 1 tab PO BID #20 tabs 09/10/21 clavulanate 125 mg tablet (Augmentin) Allergies Allergy/AdvReac Type Severity Reaction Status Date / Time orange [ORANGES] Allergy Intermediate HIVES Verified 09/10/21 05:21 Sulfa (Sulfonamide Allergy Rash Verified 09/10/21 05:21 Antibiotics) seafood AdvReac Anaphylaxis Verified 09/10/21 05:21 Review of Systems Review of Systems: Positive polysubstance abuse no suicidal homicidal ideation Yes all other systems are reviewed and are negative [facility] Past Medical History Attestation statement: The following information was validated with the patient. Medical History Anxiety Asthma Bipolar affective Depression PTSD (post-traumatic stress disorder) Seizure Substance abuse Surgical History Hx of hand surgery Social History Social History Household Members: Significant Other Household Members Other:: fiance Housing: Homeless Housing Other:: I live with my fiance. We don't have an apartment. I am not homeless Do you presently have visiting nurse or other home services: No Alcohol intake: unknown Patient Tobacco Use Status: Tobacco use Unknown Tobacco use type: Cigarette Cigarette Packs Per Day: 1 Cigarettes Per Day: 20.0 Years Smoked: 11 Second Hand Smoke Exposure: Yes Substance Use Type: Amphetamines, Crack/Cocaine, Heroin and Methamphetamine Advance Directives: No Advance Directives Information Provided: No service: No Sexual orientation: Don't Know Physical Exam ED Vital Signs: Vital Signs - 24 hr 05/12/22 00:20 Temperature 97.9 F Pulse Rate 78 Respiratory Rate 16 Blood Pressure 100/70 Pulse Oximetry 98 Oxygen Delivery Method Room Air BMI result Body Mass Index 14.6 Cachectic female Appearance: Alert. Oriented X3. No acute distress. Eyes: Pupils equal, round and reactive to light. ENT: Pharynx normal. Neck: Normal inspection. Neck supple. No lymph nodes noted. No crepitus CVS: Normal heart rate and rhythm. Pulses normal. Normal S1 and S2 Respiratory: No respiratory distress. Breath sounds normal. No Wheezing. No rales Abdomen: Soft and nontender. No rigidity. No distention. good BS x4 Skin: Skin warm and dry. Normal skin color. Normal skin turgor. Extremities: No lower extremity edema. Neurovascular intact to all extremities. No Lacerations. Multiple track hernandez noted in the upper extremity no gross infection noted Neuro: Oriented X 3. No motor deficit. No sensory deficit. Moving all extermities. No slurred speech Medical Decision Making MDM Narrative Medical decision making narrative: Patient now wants detox. List of detox was provided to patient. A Narcan kit was provided to her. Patient is to be discharged. In stable condition. Lab Data Result diagrams: 05/12/22 04:34 05/12/22 04:34 Labs: Lab Results 05/12/22 05/12/22 Range/Units 04:34 04:34 WBC 6.4 (4.8-10.8) X10*3/uL RBC 4.50 (4.20-5.50) X10*6/uL Hgb 13.5 (12.0-16.0) g/dl Hct 41.3 (37.0-47.0) % MCV 91.8 (80.0-98.0) fL MCH 30.0 (27.0-33.0) pg MCHC 32.7 (31.0-35.0) g/dl RDW 13.2 (11.0-16.0) % Plt Count 184 (160-400) X10*3/uL MPV 10.2 (9.4-12.3) fL Absolute Nucleated RBC 0.000 (0.0-0.012) X10*3/uL Nucleated RBC % (auto) 0.0 (0.0-0.2) /100WBC Sodium 142 (135-145) mmol/L Potassium 3.2 L (3.3-5.1) mmol/L Chloride 108 (96-108) mmol/L Carbon Dioxide 21 L (22-29) mmol/L Anion Gap 16 (12-20) BUN 19 H (9-16) mg/dL Creatinine 0.75 (0.5-1.4) mg/dL Estim Creat Clear Calc 69.8 Estimated GFR > 60 Random Glucose 135 H (60-115) mg/dL Calcium 8.8 D (8.4-10.2) mg/dL Total Bilirubin 0.2 (0.0-1.0) mg/dL AST 45 H (5-31) U/L ALT 75 H (0-31) U/L Alkaline Phosphatase 71 D (39-117) U/L Total Protein 7.1 D (6.5-8.0) g/dL Albumin 3.7 (3.5-5.0) g/dL Discharge Plan Discharge Clinical Impression: Opioid use disorder, Cocaine use disorder Patient Disposition: Home, Self-Care Instructions: Cocaine Abuse (ED), Polysubstance Abuse (ED), Opioid Use Disorder (ED) Additional Instructions: Please go to detox as soon as possible Prescriptions: No Action hydroxyzine HCl 25 mg Tablet 25 mg PO TID PRN (Reason: Anxiety) 30 Days Qty: 90 0RF clindamycin HCl 150 mg capsule 1 cap PO TID amoxicillin-pot clavulanate [Augmentin] 875-125 mg tablet 1 tab PO BID Qty: 20 0RF quetiapine 25 mg tablet 25 mg PO BID@0900,1400 quetiapine 300 mg tablet 0.5 tab PO BEDTIME trazodone 50 mg Tablet 50 mg PO BEDTIME PRN (Reason: Sleep) atomoxetine 40 mg capsule 1 cap PO QAM melatonin 5 mg Tablet 5 mg PO BEDTIME PRN (Reason: Sleep) Referrals: Physician,Unknown J [Primary Care Provider] - (Please go to detox)
[2022-05-12 05:24] VITALS: BP 109/72; PULSE 78; RESP 16; TEMP 36.8; O2SAT 100
--- NOTE | 2022-05-12 05:58 | PC.NURSE ---
Reviewed discharge instructions with pt. pt verbalized understanding.
[2022-05-12] MEDS: Naloxone HCl Nasal TAKE HOME 4 MG SPRAY NOSTRILALT (06:06)
[2022-05-12 06:10] VITALS: RESP 16
== END 2022-05-12 06:12 | disposition home or self-care (01) ==
PROVIDERS: Emergency Provider Emergency Medicine Emergency Medical Services
DX: F19.10 Other psychoactive substance abuse, uncomplicated (principal); F14.10 Cocaine abuse, uncomplicated; Z79.899 Other long term (current) drug therapy; F17.200 Nicotine dependence, unspecified, uncomplicated
CPT/HCPCS: 36415; 80053; 85027; 99283; 99284

== ENCOUNTER 2023-04-11 15:24 | Emergency (ER) | payer OTHER, SELFPAY ==
[2023-04-11 15:57] VITALS: BP 110/70; BP 131/35; PULSE 94; PULSE 98; RESP 16; TEMP 36.2; O2SAT 96; O2SAT 98; BMI 22.5
[2023-04-11 16:09] VITALS: RESP 16
--- NOTE | 2023-04-11 16:20 | ED.PSYCH ---
HPI - Psych General Chief Complaint: Psychiatric Symptoms Stated Complaint: BEHAVIORAL ISSUES W/MOUTH PAIN Time Seen by Provider: 04/11/23 16:06 Source: patient and EMS Mode of arrival: EMS Limitations: other (not cooperative) History of Present Illness HPI Narrative: 28-year-old female with history of polysubstance abuse presents with a retic behavior noted home. There are no reports of SI or HI. Patient is generally non cooperative. When attempting to ask questions she just rolls over onto the bed and closes her eyes. Patient was reportedly found with a lot of drug paraphernalia. Patient's symptoms are moderate to severe. There is no clear relieving or exacerbating features. History is quite limited due to non cooperative nature. EMS provided the majority of the history. Related Data Home Medications Medication Instructions Recorded Confirmed clonidine HCl 0.1 mg tablet 0.1 mg PO TID 04/11/23 04/11/23 glecaprevir 100 mg-pibrentasvir 40 3 tab PO DAILY 04/11/23 04/11/23 mg tablet (Mavyret) hydroxyzine HCl 50 mg tablet 50 mg PO TID 04/11/23 04/11/23 mirtazapine 15 mg tablet 15 mg PO BEDTIME 04/11/23 04/11/23 oxcarbazepine 300 mg tablet 300 mg PO BID 04/11/23 04/11/23 prazosin 2 mg capsule 2 mg PO BEDTIME 04/11/23 04/11/23 quetiapine 200 mg tablet 200 mg PO BEDTIME 04/11/23 04/11/23 Allergies Allergy/AdvReac Type Severity Reaction Status Date / Time orange [ORANGES] Allergy Intermediate HIVES Verified 09/10/21 05:21 Sulfa (Sulfonamide Allergy Rash Verified 09/10/21 05:21 Antibiotics) seafood AdvReac Anaphylaxis Verified 09/10/21 05:21 Review of Systems Review of Systems: Yes Other ( Not cooperative) [facility] Past Medical History Medical History Anxiety Asthma Bipolar affective Depression PTSD (post-traumatic stress disorder) Seizure Substance abuse Surgical History Hx of hand surgery Social History Social History Household Members: Significant Other Household Members Other:: fiance Housing: Homeless Housing Other:: I live with my fivianca. We don't have an apartment. I am not homeless Do you presently have visiting nurse or other home services: No Alcohol intake: unknown Patient Tobacco Use Status: Tobacco use Unknown Tobacco use type: Cigarette Cigarette Packs Per Day: 1 Cigarettes Per Day: 20.0 Years Smoked: 11 Smoked in Last 30 Days: Yes Second Hand Smoke Exposure: Yes Use of substances other than those prescribed or required for medical reasons: Yes Substance Use Type: Crack/Cocaine and Marijuana Last Used Substance: Days (ago) Advance Directives: No service: No Sexual orientation: Don't Know Physical Exam Vital Signs: Vital Signs: Last Vital Signs Temp 97.6 F 04/11/23 19:28 Pulse 62 04/11/23 19:28 Resp 16 04/11/23 19:28 BP 115/70 04/11/23 19:28 Pulse Ox 98 04/11/23 19:28 O2 Del Method Room Air 04/11/23 19:28 BMI result Body Mass Index 22.5 GEN: Well developed, no acute distress, alert, wakes up to verbal stimuli HEENT: Normocephalic, atraumatic, normal external ears, nose appears normal Eyes: Normal to appearance Neck: Supple, no lymphadenopathy Respiratory: Talks in complete sentences, no respiratory distress Extremities: No clubbing cyanosis or edema Neurologic: No focal neurologic deficits Skin: No rash Course Course Course Narrative: We are still waiting urinalysis urine toxicology screen. Patient will be placed in physician observation. My colleague Dr. Doshi will assume care at 2:00 a.m. in the morning. Disposition pending care team in the morning. Medical Decision Making Medical Decision Making [facility] Narrative: patient presents for behavior health evaluation for retic behavior. Patient is not cooperative during my evaluation. She is somnolent just rolls over to sleep. She is only arouses but prefers not to talk at this time. There are no reports of SI or HI. Patient will need medical clearance. She can not evaluate be evaluated by our care team. We can re-evaluate her when she is more cooperative. Differential Diagnosis Differential Diagnoses: The differential diagnosis associated with the presentation includes ( Intoxication, somnolence, anemia, electrolyte abnormality, depression, anxiety, PTSD) Admission/Observation Consideration of admission/observation: Escalation of care including admission/observation considered Consult Healthcare Provider Management of the patient was discussed with: Behavioral Health Provider Lab Data MDM Lab Attestation statement: I reviewed the patient's lab results. 04/11/23 17:20 04/11/23 17:20 Labs: Lab Results 04/11/23 04/11/23 Range/Units 17:20 17:20 WBC 7.5 (4.8-10.8) X10*3/uL RBC 3.61 L (4.20-5.50) X10*6/uL Hgb 11.5 L (12.0-16.0) g/dl Hct 33.5 L (37.0-47.0) % MCV 92.8 (80.0-98.0) fL MCH 31.9 (27.0-33.0) pg MCHC 34.3 (31.0-35.0) g/dl RDW 12.1 (11.0-16.0) % Plt Count 153 L (160-400) X10*3/uL MPV 10.5 (9.4-12.3) fL Immature Gran % (Auto) 0.3 (0.0-0.4) % Neut % (Auto) 60.0 (45-73) % Lymph % (Auto) 24.2 (20-40) % [place] % (Auto) 11.1 H (2-11) % Eos % (Auto) 4.3 H (0-4) % Baso % (Auto) 0.1 (0-2) % Lymph # (Auto) 1.8 (1.2-4.9) X10*3/uL [place] # (Auto) 0.8 (0.1-1.2) X10*3/uL Eos # (Auto) 0.3 (0.0-0.4) X10*3/uL Baso # (Auto) 0.0 (0.0-0.2) X10*3/uL Abs Immat Gran (auto) 0.02 (0.00-0.03) X10*3/uL Absolute Neuts (auto) 4.5 (2.0-8.3) x10*3/uL Absolute Nucleated RBC 0.000 (0.0-0.012) X10*3/uL Nucleated RBC % (auto) 0.0 (0.0-0.2) /100WBC Sodium 138 (135-145) mmol/L Potassium 3.3 (3.3-5.1) mmol/L Chloride 104 (96-108) mmol/L Carbon Dioxide 25 (22-29) mmol/L Anion Gap 12 (12-20) BUN 16 (9-16) mg/dL Creatinine 0.64 (0.5-1.4) mg/dL Estim Creat Clear Calc 95.6 Estimated GFR > 60 Random Glucose 136 H (60-115) mg/dL Calcium 8.6 (8.4-10.2) mg/dL Total Bilirubin 0.6 (0.0-1.0) mg/dL AST 55 H (5-31) U/L ALT 29 (0-31) U/L Alkaline Phosphatase 86 (39-117) U/L Total Protein 7.0 (6.5-8.0) g/dL Albumin 3.7 (3.5-5.0) g/dL Ethyl Alcohol < 10 mg/dL Independent Interpretation I performed an independent interpretation of an: EKG ( normal sinus rhythm heart rate 85, sinus arrhythmia, nonspecific ST T wave changes, no acute ST elevations depressions) Independent Historian Clinical information obtained from an independent historian. History obtained from or confirmed by: EMS Discharge Plan Discharge Clinical Impression: Substance abuse Patient Disposition: Still a Patient Prescriptions: No Action quetiapine 200 mg tablet 200 mg PO BEDTIME oxcarbazepine 300 mg tablet 300 mg PO BID mirtazapine 15 mg tablet 15 mg PO BEDTIME prazosin 2 mg capsule 2 mg PO BEDTIME Mavyret 100-40 mg tablet 3 tab PO DAILY clonidine HCl 0.1 mg tablet 0.1 mg PO TID hydroxyzine HCl 50 mg tablet 50 mg PO TID Interventions: [place]-Suicide Risk Severity Scale Last Done: 04/11/23 16:09
--- NOTE | 2023-04-11 16:41 | PC.NURSE ---
pt patience from grandmothers house for behavioral concern. pt has hx of substance abuse, d/c'd from rehab about a week ago. upon arrival, pt appears lethargic, dozing in and out with awkward body movements and slurred speech. pt initially uncooperative with coming to pod/changeover, stating she is here for oral/mouth pain and wants to go to the main ED. pt redirectable, complied to changeover and belongings locked up. denies SI/HI. pt admits to using crack and marijuana, with last use yesterday. pt denies use of substances today, only taking methadone dose - gets methadone from [facility] on [address] pt reports 10/10 mouth/throat pain with visible sores to the pt's tongue. pt believes it is from xylazine that could have been laced in the pt's crack or marijuana. pt currently in bed, sleeping. awaiting urine sample. wctm.
--- NOTE | 2023-04-11 17:23 | PC.NURSE ---
labs drawn and sent to lab. awaiting urine sample. pt currently sleeping, difficult to arouse but will respond to verbal and tactile stimuli. rr even/unlabored. wctm
[2023-04-11 17:25] LABS: MANUAL DIFF FLAG NO
[2023-04-11 17:37] LABS: Basophils Percent Auto 0.1 % (0-2); Eosinophils Absolute Auto 0.3 X10*3/uL (0.0-0.4); Eosinophils Percent Auto 4.3 % (0-4); Hematocrit 33.5 % (37.0-47.0); Hemoglobin 11.5 g/dl (12.0-16.0); Imm Gran Abs Auto 0.02 X10*3/uL (0.00-0.03); Imm Gran Pct Auto 0.3 % (0.0-0.4); Lymphocytes Absolute Auto 1.8 X10*3/uL (1.2-4.9); Lymphocytes Percent Auto 24.2 % (20-40); Mean Corpuscular HGB Conc 34.3 g/dl (31.0-35.0); Mean Corpuscular Hemoglobin 31.9 pg (27.0-33.0); Mean Corpuscular Volume 92.8 fL (80.0-98.0); Mean Platelet Volume 10.5 fL (9.4-12.3); Monocytes Absolute Auto 0.8 X10*3/uL (0.1-1.2); Monocytes Percent Auto 11.1 % (2-11); Neutrophils Absolute Auto 4.5 x10*3/uL (2.0-8.3); Platelet Count 153 X10*3/uL (160-400); Red Blood Count 3.61 X10*6/uL (4.20-5.50); Red Cell Distribution Width 12.1 % (11.0-16.0); White Blood Count 7.5 X10*3/uL (4.8-10.8)
[2023-04-11 18:07] LABS: Alanine Aminotransferase 29 U/L (0-31); Albumin Level 3.7 g/dL (3.5-5.0); Alkaline Phosphatase 86 U/L (39-117); Anion Gap 12 (12-20); Aspartate Amino Transferase 55 U/L (5-31); Bilirubin Total 0.6 mg/dL (0.0-1.0); Blood Urea Nitrogen 16 mg/dL (9-16); Calcium 8.6 mg/dL (8.4-10.2); Carbon Dioxide 25 mmol/L (22-29); Chloride 104 mmol/L (96-108); Creatinine Clr Calc Pharmacy 95.6; Estimated Glomerular Filt Rate > 60; Ethanol < 10 mg/dL; Glucose Random 136 mg/dL (60-115); Potassium 3.3 mmol/L (3.3-5.1); Sodium 138 mmol/L (135-145)
--- NOTE | 2023-04-11 18:35 | PC.NURSE ---
pt grandmother, Disha, called, asking for update. with pt permission, updated grandmother on pt status/condition. grandmother sts pt has not been acting herself today, qustioning psychotic episode? psychosis from intoxication? pt placed in [facility] for 40 day rehab treatment. released past tuesday. pt non-compliant with medications, not sleeping. pt grandmother also sts that pt thinks she is . pt given multiple tests at facilities and was told not . pt still thinks she is. pt grandmother would like update on pt plan of care, once pt is awake and able to be evaluated. Disha Cole: [phone]
[2023-04-11 19:28] VITALS: BP 115/70; PULSE 62; RESP 16; TEMP 36.4; O2SAT 98
[2023-04-12 05:23] VITALS: BP 115/67; PULSE 62; RESP 16; TEMP 36.5; O2SAT 98
[2023-04-12 05:53] LABS: Appearance Urine Hazy; Color Urine DK YELLOW; Glucose Urine UA Negative (Negative); Leukocyte Esterase Urine Negative (Negative); Nitrite Urine Negative (Negative); Specific Gravity - Urine 1.025 (1.005-1.025); Urine Blood Negative (Negative); Urine Ketones Negative (Negative); Urine Protein Trace mg/dL (Neg-Trace)
[2023-04-12 05:55] LABS: UPreg QC Valid YES; Urine Pregnancy NEGATIVE (NEGATIVE)
[2023-04-12 05:58] LABS: Amphetamine Screen Urine Not Detected (Not Detect); Barbiturates, Urine Not Detected (Not Detect); Benzodiazepines Screen Urine Not Detected (Not Detect); Cannabinoid Screen Urine POSITIVE (Not Detect); Cocaine Screen Urine POSITIVE (Not Detect); Opiate Screen Urine POSITIVE (Not Detect); Phencyclidine Screen Urine Not Detected (Not Detect)
[2023-04-12 06:07] LABS: Fentanyl, urine POSITIVE (Not Detect)
--- NOTE | 2023-04-12 06:30 | PC.NURSE ---
Patient slept though the night, no distress observed/reported, behavior non concerning, care consult ordered/pending evaluation, labs completed/resulted, VSS, med rec completed/pending provider's approval, will continue to monitor.
--- NOTE | 2023-04-12 09:13 | PC.NURSE ---
Methadone dose verified with [facility] , 140mg given last on 04/10/2023 at 7:56am.
--- NOTE | 2023-04-12 09:14 | HE.PHANOTE ---
RE METHADONE PATIENT GETS 140MG FROM [facility], LAST DOSED 04/10 @ [id number]
[2023-04-12] MEDS: methADONE HCl 20 MG/2 ML ORAL.CONC 140 MG PO (09:27)
--- NOTE | 2023-04-12 10:29 | MHC.RECOVRN ---
T/w met pt to discuss recovery goals. Pt reports last use was last night, reports crack use only at this time. Pt declining detox bedsearch stating I know what I need to do pt fixated on discharging to have a cigarette. Pt provided with a packet of resources in the community including a list of shelters, and detoxes. Pt provided with information regarding xylazine. Discussed with Yuri Forbes from CARE team pt's wishes to d/c. Encouraged pt to call the clinic with any questions, pt verbalized understanding.
[2023-04-12] MEDS: Lidocaine HCl Viscous 2 % 15 ML SOLUTION MUCOUS MEM (10:32)
--- NOTE | 2023-04-12 10:33 | PC.NURSE ---
Patient requesting discharge, care team, PA aware.
--- NOTE | 2023-04-12 10:45 | PC.NURSE ---
medicated per mar for complaints of mouth sores, Discharge plan reviewed with patient who verbalized understanding, care team to arrange transportation home
== END 2023-04-12 10:48 | disposition home or self-care (01) ==
PROVIDERS: Emergency Provider Emergency Medicine; PCP Family Medicine
DX: F14.10 Cocaine abuse, uncomplicated (principal); F17.200 Nicotine dependence, unspecified, uncomplicated; Z71.6 Tobacco abuse counseling; Z79.899 Other long term (current) drug therapy; Z59.00 Homelessness unspecified
CPT/HCPCS: 36415; 80053; 80307; 81003; 81025; 85025; 99284; S9485

== ENCOUNTER 2023-06-17 09:25 | Emergency (ER) | payer OTHER, SELFPAY ==
--- NOTE | ~2023-06-17 | CT_ITS ---
CT HEAD WITHOUT CONTRAST CLINICAL INFORMATION: Head injury loss of consciousness. COMPARISON: Head CT 03/22/2019. TECHNIQUE: Contiguous axial imaging was performed from the skull base to vertex without intravenous administration of contrast. This CT examination was performed using dose optimization techniques as appropriate, variously including the following: *Automated exposure control *Adjustment of mA and/or kV according to patient size (this includes techniques or standardized protocols for targeted exams where dose is matched to indication/reason for exam; i.e. extremities or head) *Use of iterative reconstruction technique FINDINGS: There is no intracranial hemorrhage, hydrocephalus, extra-axial surface collection, midline shift, or other herniation pattern. Squires to white matter differentiation is diffusely maintained without evidence of an evolved acute territorial infarct. The basilar cisterns are preserved. No significant soft tissue abnormality. No acute osseous abnormality. The paranasal sinuses and the mastoid air cells are well aerated. CT/CT head/brain wo IV con IMPRESSION: No acute intracranial abnormality.
[2023-06-17 09:33] VITALS: BP 134/89; PULSE 128; RESP 18; TEMP 36.3; O2SAT 98; BMI 19.2
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
[2023-06-17 10:40] VITALS: BP 116/79; PULSE 90; RESP 16; O2SAT 98
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
--- NOTE | 2023-06-17 11:36 | PC.NURSE ---
pt currently speaking w/ ED provider at this time. pt refusing SA kit at this time.
--- NOTE | 2023-06-17 11:40 | PC.NURSE ---
Addendum entered by Lauren Corey RN 06/17/23 11:42: Pt had no IV present, had all personal belongings and left stating she needed to go smoke a cigarette and figure everything out. Provider aware she was leaving AMA, education given to patient Original Note: Pt left without completing treatment, did not get methadone dose, see provider documentation for further details.
== END 2023-06-17 11:55 | disposition home or self-care (01) ==
PROVIDERS: Emergency Provider Emergency Medicine Emergency Medical Services; PCP Nurse Practitioner Family
DX: S09.90XA Unspecified injury of head, initial encounter (principal); T76.21XA Adult sexual abuse, suspected, initial encounter; Y04.2XXA Assault by strike against or bumped into by another person, initial encounter; F19.10 Other psychoactive substance abuse, uncomplicated; F11.20 Opioid dependence, uncomplicated; F17.210 Nicotine dependence, cigarettes, uncomplicated; Y93.9 Activity, unspecified; Y92.009 Unspecified place in unspecified non-institutional (private) residence as the place of occurrence of the external cause; Y99.9 Unspecified external cause status
CPT/HCPCS: 70450; 99284

== ENCOUNTER 2023-07-01 14:14 | Emergency (ER) | payer OTHER, SELFPAY ==
--- NOTE | ~2023-07-01 | XR_ITS ---
EXAMINATION: XR HAND, RIGHT CLINICAL INFORMATION: Soft tissue swelling first and second metacarpophalangeal joints. COMPARISON: None available. TECHNIQUE: PA, lateral, and oblique views of the right hand. FINDINGS: No fracture or dislocation. Alignment is anatomic. Joint spaces are maintained. No erosions or soft tissue calcifications. True lateral view not obtained, soft tissues about the base of the second digit appear prominent. XR/XR hand RT min 3V IMPRESSION: No acute bony pathology. Question second digit soft tissue swelling.
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
[2023-07-01] MEDS: HaloperidoL 5 MG TABLET PO (14:43)
[2023-07-01] MEDS: LORazepam 1 MG TABLET 2 MG PO (14:43)
[2023-07-01 14:44] VITALS: BP 115/72; PULSE 110; RESP 18; BMI 23.4
--- NOTE | 2023-07-01 15:00 | MHC.EDTECH ---
Patient refused vital.
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
--- NOTE | 2023-07-01 16:48 | PC.NURSE ---
t/w discussed w dr meza the xray to the hand was negative. dr meza stated once shes improved as far as clearer from the medications we gave, and once she gives us a name for a script, patient may discharge.
--- NOTE | 2023-07-01 22:04 | PC.NURSE ---
at bedside. pt refusing to provide labs or urine at this time
[2023-07-01] MEDS: cephALEXin 500 MG CAPSULE PO (22:22)
[2023-07-01] MEDS: Doxycycline Monohydrate 100 MG CAPSULE PO (22:23)
--- NOTE | 2023-07-01 22:28 | PC.NURSE ---
pt has now given her correct name and . registration notified. pt given abx per OCT for hand infection. pt told MD she feels unsafe to go home at this time. pt resting in bed, no apparent distress noted, breathing even and unlabored
[2023-07-01 23:14] LABS: COVID-19 Test Negative (Negative); IDNOW Serial# 6674DD1D
--- NOTE | 2023-07-02 00:13 | PC.NURSE ---
pt resting comfortably in bed, eyes closed, breathing even and unlabored. no apparent distress noted at this time
[2023-07-02 05:53] VITALS: BP 91/54; PULSE 73; RESP 16; TEMP 36.6; O2SAT 100
--- NOTE | 2023-07-02 05:56 | MHC.EDTECH ---
Pt provided water. Pt states they are unable to urinate at this time.
[2023-07-02 07:01] LABS: Amphetamine Screen Urine Not Detected (Not Detect); Barbiturates, Urine POSITIVE (Not Detect); Benzodiazepines Screen Urine Not Detected (Not Detect); Cannabinoid Screen Urine POSITIVE (Not Detect); Cocaine Screen Urine POSITIVE (Not Detect); Fentanyl, urine POSITIVE (Not Detect); Opiate Screen Urine POSITIVE (Not Detect); Phencyclidine Screen Urine Not Detected (Not Detect)
[2023-07-02 07:40] LABS: Appearance Urine Clear; Color Urine Dark Yellow; Glucose Urine UA Negative (Negative); Leukocyte Esterase Urine Trace (Negative); Nitrite Urine Negative (Negative); PH 6.5 (5.0-9.0); Specific Gravity - Urine >= 1.030 (1.005-1.025); UMIC TRIGGER UACC YES; Urine Blood Negative (Negative); Urine Ketones Trace mg/dL (Negative); Urine Protein 30 (1+) mg/dL (Neg-Trace)
[2023-07-02 07:42] LABS: Bacteria Urine 1+ (None Seen); Hyaline Casts Urine 0-2 /LPF (0-2); RBC Urine 0-2 /HPF (0-2); UACC Culture Trigger YES
[2023-07-02 08:16] LABS: UPreg QC Valid YES; Urine Pregnancy NEGATIVE (NEGATIVE)
[2023-07-02] MEDS: cephALEXin 500 MG CAPSULE PO (10:24)
[2023-07-02] MEDS: Doxycycline Monohydrate 100 MG CAPSULE PO (10:24)
[2023-07-02 10:50] LABS: MANUAL DIFF FLAG NO
[2023-07-02 10:56] LABS: Basophils Percent Auto 0.4 % (0-2); Eosinophils Absolute Auto 0.1 X10*3/uL (0.0-0.4); Eosinophils Percent Auto 1.8 % (0-4); Hemoglobin 12.1 g/dl (12.0-16.0); Imm Gran Abs Auto 0.01 X10*3/uL (0.00-0.03); Imm Gran Pct Auto 0.1 % (0.0-0.4); Lymphocytes Absolute Auto 2.4 X10*3/uL (1.2-4.9); Lymphocytes Percent Auto 30.5 % (20-40); Mean Corpuscular HGB Conc 32.7 g/dl (31.0-35.0); Mean Corpuscular Hemoglobin 31.1 pg (27.0-33.0); Mean Corpuscular Volume 95.1 fL (80.0-98.0); Mean Platelet Volume 9.8 fL (9.4-12.3); Monocytes Absolute Auto 0.7 X10*3/uL (0.1-1.2); Monocytes Percent Auto 8.4 % (2-11); Neutrophils Absolute Auto 4.7 x10*3/uL (2.0-8.3); Neutrophils Percent Auto 58.8 % (45-73); Platelet Count 309 X10*3/uL (160-400); Red Blood Count 3.89 X10*6/uL (4.20-5.50); Red Cell Distribution Width 13.6 % (11.0-16.0)
[2023-07-02 11:13] LABS: Alanine Aminotransferase 11 U/L (0-31); Albumin Level 3.4 g/dL (3.5-5.0); Alkaline Phosphatase 75 U/L (39-117); Anion Gap 10 (12-20); Aspartate Amino Transferase 18 U/L (5-31); Bilirubin Total 0.1 mg/dL (0.0-1.0); Blood Urea Nitrogen 10 mg/dL (9-16); Carbon Dioxide 29 mmol/L (22-29); Chloride 104 mmol/L (96-108); Creatinine Clr Calc Pharmacy 120.4; Estimated Glomerular Filt Rate > 60; Ethanol < 10 mg/dL; Glucose Random 108 mg/dL (60-115); Potassium 3.5 mmol/L (3.3-5.1); Sodium 139 mmol/L (135-145); Total Protein 6.9 g/dL (6.5-8.0)
[2023-07-02] MEDS: methADONE HCl 20 MG/2 ML ORAL.CONC 40 MG PO (11:51)
[2023-07-02 12:05] LABS: Acetaminophen LAB < 3 mcg/mL (<30); Salicylate < 5.0 mg/dL (15-30)
[2023-07-02] MEDS: Naloxone HCl Nasal TAKE HOME 4 MG SPRAY 8 MG NOSTRILALT (13:18)
--- NOTE | 2023-07-02 13:19 | PC.NURSE ---
ISELAN called and verified Christina last dosed on 06/30/23 at 40mg's by Divina Emanuel RN. Dose given today in ED. LDL sent out with patient.
== END 2023-07-02 13:00 | disposition home or self-care (01) ==
PROVIDERS: Emergency Provider Emergency Medicine Emergency Medical Services
DX: F91.9 Conduct disorder, unspecified (principal); L03.113 Cellulitis of right upper limb; R45.851 Suicidal ideations; R40.0 Somnolence; F11.10 Opioid abuse, uncomplicated; F14.10 Cocaine abuse, uncomplicated; F12.10 Cannabis abuse, uncomplicated; F17.210 Nicotine dependence, cigarettes, uncomplicated; Z71.6 Tobacco abuse counseling; Z71.51 Drug abuse counseling and surveillance of drug abuser; Z79.899 Other long term (current) drug therapy
CPT/HCPCS: 36415; 73130; 80053; 80143; 80179; 80307; 81001; 81025; 85025; 87086; 87635; 99284; S9485

== ENCOUNTER 2023-07-09 10:05 | Emergency (ER) | payer OTHER, SELFPAY ==
--- NOTE | ~2023-07-09 | XR_ITS ---
EXAMINATION: XR TIBIA AND FIBULA, LEFT CLINICAL INFORMATION: Cellulitis COMPARISON: None available. TECHNIQUE: Frontal and lateral views. FINDINGS: The bones and soft tissues are normal. No fracture. No osseous lesions. XR/XR tibia fibula LT 2V IMPRESSION: Normal radiograph, tibia and fibula are intact. No evidence of osteomyelitis. No subcutaneous emphysema.
[2023-07-09 10:14] VITALS: BP 105/62; PULSE 104; RESP 26; TEMP 36.6; O2SAT 98; BMI 20.8
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
[2023-07-09 11:32] VITALS: BP 92/42; PULSE 77; RESP 20; TEMP 37.2; O2SAT 98
[2023-07-09 12:28] LABS: MANUAL DIFF FLAG NO
[2023-07-09 12:32] LABS: Basophils Absolute Auto 0.1 X10*3/uL (0.0-0.2); Basophils Percent Auto 0.2 % (0-2); Hematocrit 35.9 % (37.0-47.0); Hemoglobin 11.7 g/dl (12.0-16.0); Imm Gran Abs Auto 0.09 X10*3/uL (0.00-0.03); Imm Gran Pct Auto 0.4 % (0.0-0.4); Lymphocytes Absolute Auto 2.2 X10*3/uL (1.2-4.9); Lymphocytes Percent Auto 10.9 % (20-40); Mean Corpuscular HGB Conc 32.6 g/dl (31.0-35.0); Mean Corpuscular Hemoglobin 31.2 pg (27.0-33.0); Mean Corpuscular Volume 95.7 fL (80.0-98.0); Mean Platelet Volume 9.4 fL (9.4-12.3); Monocytes Absolute Auto 1.2 X10*3/uL (0.1-1.2); Monocytes Percent Auto 5.9 % (2-11); Neutrophils Absolute Auto 16.8 x10*3/uL (2.0-8.3); Neutrophils Percent Auto 82.6 % (45-73); Platelet Count 272 X10*3/uL (160-400); Red Blood Count 3.75 X10*6/uL (4.20-5.50); Red Cell Distribution Width 13.8 % (11.0-16.0); White Blood Count 20.4 X10*3/uL (4.8-10.8)
[2023-07-09 12:36] LABS: INTERNATIONAL NORM RATIO 1.1 (0.9-1.1); Prothrombin Time 13.9 SEC (11.1-13.3)
[2023-07-09 12:41] LABS: Lactic Acid 1.3 mmol/L (0.5-2.0)
[2023-07-09 12:45] LABS: Lipase 5 U/L (8-78); Magnesium 1.8 mg/dL (1.6-2.6)
[2023-07-09] MEDS: HYDROmorphone HCl 2 MG TABLET PO (13:34)
[2023-07-09 13:36] LABS: Alanine Aminotransferase 5 U/L (0-31); Albumin Level 3.4 g/dL (3.5-5.0); Alkaline Phosphatase 76 U/L (39-117); Anion Gap 12 (12-20); Aspartate Amino Transferase 11 U/L (5-31); Bilirubin Total 0.2 mg/dL (0.0-1.0); Blood Urea Nitrogen 8 mg/dL (9-16); Calcium 8.9 mg/dL (8.4-10.2); Carbon Dioxide 26 mmol/L (22-29); Chloride 104 mmol/L (96-108); Creatinine Clr Calc Pharmacy 100.4; Estimated Glomerular Filt Rate > 60; Glucose Random 131 mg/dL (60-115); Potassium 3.5 mmol/L (3.3-5.1); Sodium 138 mmol/L (135-145)
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
--- NOTE | 2023-07-09 13:55 | PC.NURSE ---
IV inserted, BCs drawn.
--- NOTE | 2023-07-09 14:07 | PC.NURSE ---
pt refused to remove sweatshirt.. pt refused to put on hospital gown. Pt was making statements about shooting up drugs and injecting drugs. Security was called to search patients belongings. Pt became very combative, agitated and demanded that this nurse take out IV. Pt yelled and cursed at this nurse. IV was removed and pt left property escorted by security.
== END 2023-07-09 14:35 | disposition left against medical advice (07) ==
PROVIDERS: Physician Assistant Medical; Emergency Provider Emergency Medicine; PCP Nurse Practitioner Family
DX: L03.116 Cellulitis of left lower limb (principal); M79.662 Pain in left lower leg; F11.20 Opioid dependence, uncomplicated; F17.210 Nicotine dependence, cigarettes, uncomplicated
CPT/HCPCS: 36415; 73590; 80053; 83605; 83690; 83735; 85025; 85610; 87040; 99283

== ENCOUNTER 2023-07-09 17:47 | Emergency (ER) | payer OTHER, SELFPAY ==
[2023-07-09 17:54] VITALS: BP 120/69; PULSE 111; RESP 22; TEMP 37.3; O2SAT 98; BMI 20.8
== END 2023-07-09 23:15 | disposition left against medical advice (07) ==
PROVIDERS: Emergency Provider Emergency Medicine
DX: M79.662 Pain in left lower leg (principal)
CPT/HCPCS: 99281

== ENCOUNTER 2023-07-09 23:28 | Emergency (ER) | payer OTHER, SELFPAY ==
[2023-07-09 23:57] VITALS: BP 116/66; PULSE 115; RESP 20; TEMP 37.6; O2SAT 98; BMI 20.5
== END 2023-07-10 02:14 | disposition left against medical advice (07) ==
PROVIDERS: Emergency Provider Emergency Medicine
DX: M79.605 Pain in left leg (principal)
CPT/HCPCS: 99281

== ENCOUNTER 2023-07-11 14:02 | Emergency (ER) | payer OTHER, SELFPAY ==
--- NOTE | 2023-07-11 14:40 | ED_ITS ---
HPI - General Adult General Chief complaint: Skin/Abscess/Foreign Body Stated complaint: l leg pain Time Seen by Provider: 07/11/23 19:03 Source: patient Mode of arrival: ambulatory History of Present Illness HPI narrative: 28-year-old female, history of IVDA presents with nonhealing left anterior lower leg wound with significant pain, redness and swelling. Related Data Home Medications Medication Instructions Recorded Confirmed prazosin 2 mg capsule 2 mg PO BEDTIME 04/11/23 07/02/23 methadone 10 mg/mL oral 40 mg PO DAILY 04/12/23 07/02/23 concentrate (Methadone Intensol) Previous Rx's Medication Instructions Recorded cephalexin 500 mg capsule 500 mg PO Q6H 7 days #28 caps 07/02/23 doxycycline hyclate 100 mg tablet 100 mg PO BID 7 days #14 tabs 07/02/23 Allergies Allergy/AdvReac Type Severity Reaction Status Date / Time orange [ORANGES] Allergy Intermediate HIVES Verified 07/09/23 17:53 Sulfa (Sulfonamide Allergy Rash Verified 07/09/23 17:53 Antibiotics) seafood AdvReac Anaphylaxis Verified 07/09/23 17:53 Review of Systems 2 Review of Systems: Pertinent positives and negatives as stated in HPI [facility] Past Medical History Source: nursing notes reviewed Medical History Back pain Gestational hypertension GERD (gastroesophageal reflux disease) Asthma Obesity Seizure Substance abuse Asthma PTSD (post-traumatic stress disorder) Depression Bipolar affective Anxiety Surgical History Hx of hand surgery Social History Social History Household Members: Significant Other Household Members Other:: fiance Housing: Homeless Housing Other:: I live with my fiance. We don't have an apartment. I am not homeless Do you presently have visiting nurse or other home services: No Alcohol intake: unknown Patient Tobacco Use Status: Tobacco use Unknown Tobacco use type: Cigarette Cigarette Packs Per Day: 1 Cigarettes Per Day: 20.0 Years Smoked: 11 Smoked in Last 30 Days: Yes Second Hand Smoke Exposure: Yes Use of substances other than those prescribed or required for medical reasons: Yes Substance Use Type: Heroin Substance Use Frequency: Chronic Longstanding Last Used Substance: Days (ago) Advance Directives: No Advance Directives Information Provided: No Patient : No service: No Sexual orientation: Don't Know Physical Exam ED Vital Signs: Vital Signs - 24 hr 07/11/23 14:42 07/11/23 20:04 Temperature 98.5 F 98.7 F Pulse Rate 94 105 H Respiratory Rate 16 20 Blood Pressure 110/64 124/59 L Pulse Oximetry 98 100 Oxygen Delivery Method Room Air Room Air BMI result Body Mass Index 21.0 VITAL SIGNS: Reviewed. GENERAL: Well developed, well nourished, in no acute distress. HEAD: Normocephalic/atraumatic EYES: PERRLA, EOMI EARS: Ext canals without abnormality NOSE: Nares patent bilateral OROPHARYNX: no oral lesions noted, posterior pharynx clear NECK: Supple, no adenopathy LUNGS: Normal breath sounds. No adventitious sounds or accessory muscle use. SpO2<98> CARDIOVASCULAR: Regular rate and rhythm without noted murmurs ABDOMEN: Soft, non-tender, non-distended with bowel sounds. MUSCULOSKELETAL: No tenderness, deformities, or effusions noted on gross inspection. EXTREMITIES: No cyanosis, clubbing or edema. LLE: On review of patient's pictures from her phone numbers a large blister overlying the anterior aspect of her left lower extremity on Tuesday and on review of this today it is a nonhealing wound and there is extensive erythema and induration that spans the ankle up to the knee, it is exquisitely painful to the patient on a even mild palpation, it is not actively draining at this time SKIN: Inspection of the skin reveals no rashes NEUROLOGIC: Alert and oriented x 4. Strength and sensation to light touch were grossly intact x 4. Course Course Course Narrative: RME performed by Britney Lucas PA-C. Patient is a 28 year old assigned female at presenting to the emergency department with a left lower leg abscess. Patient was seen here 2 days ago when they drained her abscess to the left lower leg. Patient has been taking oral antibiotics.Labs ordered. Patient placed back in the waiting room pending room availability and results. Medications Administered Generic Name Dose Route Start Last Admin Trade Name Freq PRN Reason Stop Dose Admin Sodium Chloride 1,000 mls @ 999 mls/hr 07/11/23 19:45 07/11/23 19:58 Ns IV 07/11/23 20:45 999 mls/hr .Q1H1M ESTHER Administration Discontinued Medications Generic Name Dose Route Start Last Admin Trade Name Winston PRN Reason Stop Dose Admin Acetaminophen 650 mg 07/11/23 14:43 07/11/23 19:22 Acetaminophen 325 Mg Tablet PO 07/11/23 14:44 Not Given ONCE ONE Diphtheria/Tetanus/Acell Pertussis 0.5 ml 07/11/23 19:34 07/11/23 19:57 Diphth,Pertus(Acell),Tet Adult 0.5 Ml Syringe IM 07/11/23 19:35 Not Given .ONCE ONE Cefepime HCl 2 gm/ Sodium 50 mls @ 100 mls/hr 07/11/23 19:34 07/11/23 19:59 Chloride IV 07/11/23 20:03 100 mls/hr ONCE ONE Administration Procedures Procedure Narrative Procedure Narrative: I was asked to assist with ultrasound IV as the patient has a tough stick. Using ultrasound guidance after patient consented, I was able to easily threatened a 20 gauge catheter in the left forearm. I was able to draw blood cultures with good return off of this. I was then able to flush line without any resistance. Medical Decision Making Medical Decision Making [facility] Narrative: 1919: A 28-year-old female with history and clinical presentation concerning for extensive infection of the left lower extremity and given the pain out of proportion raising concerns for the possibility of neck try zinc fasciitis although patient has had the infection for approximately 3 days she was seen here 2 days ago and offered admission but she left against medical advice. At that time she had a leukocytosis, I do not expect anything different at this time. I am unable to palpate patient's leg so unsure whether not there is crepitus but leg is exquisitely tender. 1933: Attempting ultrasound guided IV access and will immediately administer antibiotics and contact General surgery technician. I reviewed all investigations, hematologic indices are still pending, chemistry indices are grossly within normal limits with the exception of an elevated CRP- 6.71 and a beta hCG that is undetectable. Urinalysis negative for UTI or hematuria. X-ray of tibia without evidence of OM. IV access placed and had received approximately 1 g of cefepime, she declined the Tdap and then precipitously decided that she was going to leave. Despite this cuss mg of risks and benefits that could potentially include bacteremia with sepsis and potentially she stated that she wanted to walk to [facility] if necessary and get seen there instead. I did inform the jd edwards consultant, Dr. Majano. Patient still had antibiotics in her possession that she was discharged with 2 days ago. She was encouraged to continue taking the antibiotics Differential Diagnosis Differential Diagnoses: The differential diagnosis associated with the presentation includes Please see the discussion above Admission/Observation Consideration of admission/observation: Escalation of care including admission/observation considered Please see the discussion above Consult Healthcare Provider Management of the patient was discussed with: Hospital Receptionist Please see the discussion above Lab Data MDM Lab Attestation statement: I reviewed the patient's lab results. Please see the discussion above 07/11/23 19:23 07/11/23 19:23 Labs: Lab Results 07/11/23 07/11/23 Range/Units 19: 20:07 Sodium 136 (135-145) mmol/L Potassium 4.1 (3.3-5.1) mmol/L Chloride 101 (96-108) mmol/L Carbon Dioxide 28 (22-29) mmol/L Anion Gap 11 L (12-20) BUN 11 (9-16) mg/dL Creatinine 0.60 (0.5-1.4) mg/dL Estim Creat Clear Calc 102.0 Estimated GFR > 60 Random Glucose 72 (60-115) mg/dL Lactic Acid 0.9 (0.5-2.0) mmol/L Calcium 9.5 D (8.4-10.2) mg/dL Magnesium 2.0 (1.6-2.6) mg/dL Total Bilirubin 0.2 (0.0-1.0) mg/dL AST 15 (5-31) U/L ALT 9 (0-31) U/L Alkaline Phosphatase 81 (39-117) U/L C-Reactive Protein 6.71 H (< or = 0.50) mg/dL Total Protein 8.0 (6.5-8.0) g/dL Albumin 3.8 (3.5-5.0) g/dL Beta HCG, Quant < 2 mIU/mL Urine Color Yellow Urine Appearance Clear Urine pH 7.0 (5.0-9.0) Ur Specific [place] 1.025 (1.005-1.025) Urine Protein Negative (Neg-Trace) mg/dL Urine Glucose (UA) Negative (Negative) mg/dL Urine Ketones Trace (Negative) mg/dL Urine Blood Negative (Negative) Urine Nitrite Negative (Negative) Ur Leukocyte Esterase Negative (Negative) Radiology Impression Discussion of test interpretation with radiology: I have reviewed the radiologist's reading. Radiologist Impression: Please see the discussion above External Record Review External record reviewed: Outpatient record, Prior outpatient labs and Prior outpatient radiology Chronic Conditions Patient?s care impacted by: Other Chronic IVDU Social Determinants Patient?s care significantly limited by Social Determinants of Health including: Alcoholism and drug addiction in family Critical Care Time Critical Care Time Critical Care Time: Yes Total Critical Care Time: 60 Attestation: I personally attest to this time spent taking care of the patient. Discharge Plan Discharge Clinical Impression: Cellulitis of left leg Patient Disposition: Left Against Medical Advice Instructions: Cellulitis (ED) Additional Instructions: 1. Complete all antibiotics as prescribed. Return to the ER for any worsening symptoms. Prescriptions: No Action prazosin 2 mg capsule 2 mg PO BEDTIME methadone [Methadone Intensol] 10 mg/mL Concentrate 40 mg PO DAILY cephalexin 500 mg capsule 500 mg PO Q6H 7 Days Qty: 28 0RF doxycycline hyclate 100 mg tablet 100 mg PO BID 7 Days Qty: 14 0RF Stand Alone Forms: Against Medical Advice
[2023-07-11 14:42] VITALS: BP 110/64; PULSE 94; RESP 16; TEMP 36.9; O2SAT 98; BMI 21.0
--- NOTE | 2023-07-11 19:25 | PC.NURSE ---
labs obtained and sent to lab by [employer].
--- NOTE | 2023-07-11 19:44 | PC.NURSE ---
recollect on purple top per lab not enough to run.. pt is a difficult stick, dr Ricci made aware.
--- NOTE | 2023-07-11 19:45 | PC.NURSE ---
20gIV placed in left AC w/ ultrasound guidance by PUSHPA Ardon. 2nd set of cultures obtained and sent to lab.
[2023-07-11 19:46] LABS: Lactic Acid 0.9 mmol/L (0.5-2.0)
[2023-07-11 19:57] LABS: Alanine Aminotransferase 9 U/L (0-31); Albumin Level 3.8 g/dL (3.5-5.0); Alkaline Phosphatase 81 U/L (39-117); Anion Gap 11 (12-20); Aspartate Amino Transferase 15 U/L (5-31); Bilirubin Total 0.2 mg/dL (0.0-1.0); Blood Urea Nitrogen 11 mg/dL (9-16); C Reactive Protein 6.71 mg/dL (< or = 0.50); Calcium 9.5 mg/dL (8.4-10.2); Carbon Dioxide 28 mmol/L (22-29); Chloride 101 mmol/L (96-108); Estimated Glomerular Filt Rate > 60; Glucose Random 72 mg/dL (60-115); Potassium 4.1 mmol/L (3.3-5.1); Sodium 136 mmol/L (135-145)
--- NOTE | 2023-07-11 19:57 | PC.NURSE ---
pt was in the far bathroom from 18 to over by room 7, pt is a known drug user and security came with this rn for a bathroom wellness check due to pt brought her bag in wtih her and she has a iv in her arm. pt appears to be wnl and will monitor her closely. pt denies s1 h1 and denies using any drugs at this time. this was approached in a gentle manner with security present.
[2023-07-11] MEDS: 0.9 % Sodium Chloride 1,000 ML 999 ML IV (19:58)
[2023-07-11] MEDS: cefEPime HCl 2 GM in 0.9 % Sodium Chloride 50 ML IV (19:59)
--- NOTE | 2023-07-11 20:01 | PC.NURSE ---
security called d/t pt refusing to change into hospital attire. pt also took belongings as well as bag into bathroom far away from her room w/ IV in arm after this RN had told the patient that the bathroom is right out of the room on the left. pt now agitated and angry d/t wellness check.
[2023-07-11 20:04] VITALS: BP 124/59; PULSE 105; RESP 20; TEMP 37.1; O2SAT 100
[2023-07-11 20:07] LABS: HCG Quantitative < 2 mIU/mL
--- NOTE | 2023-07-11 20:10 | PC.NURSE ---
medications administered per provider order. urine obtained/sent to lab.
--- NOTE | 2023-07-11 20:14 | PC.NURSE ---
ED provider bedside. pt ripped out her own IV. pt now leaving AMA at this time. pt received approx. 1 gram of abx that was prescribed by provider.
[2023-07-11 20:18] LABS: Appearance Urine Clear; Color Urine Yellow; Glucose Urine UA Negative (Negative); Leukocyte Esterase Urine Negative (Negative); Nitrite Urine Negative (Negative); Specific Gravity - Urine 1.025 (1.005-1.025); Urine Blood Negative (Negative); Urine Ketones Trace mg/dL (Negative); Urine Protein Negative (Neg-Trace)
[2023-07-11 20:29] LABS: Erythrocyte Sedimentation Rate 70 MM/HR (0-20)
== END 2023-07-11 20:25 | disposition left against medical advice (07) ==
PROVIDERS: Physician Assistant Medical; Emergency Provider Student in an Organized Health Care Education/Training Program
DX: L03.116 Cellulitis of left lower limb (principal); F19.10 Other psychoactive substance abuse, uncomplicated; F33.0 Major depressive disorder, recurrent, mild; F11.20 Opioid dependence, uncomplicated; F43.10 Post-traumatic stress disorder, unspecified; F17.210 Nicotine dependence, cigarettes, uncomplicated; Z79.899 Other long term (current) drug therapy
CPT/HCPCS: 36415; 80053; 81003; 83605; 83735; 84702; 85652; 86140; 87040; 96374; 99284; J0692

== ENCOUNTER 2024-01-26 09:45 | Emergency (ER) | payer OTHER, SELFPAY ==
[2024-01-26 10:00] VITALS: BP 106/82; PULSE 114; O2SAT 97
--- NOTE | 2024-01-26 10:02 | PC.NURSE ---
Pt BIBA with security behind EMS, pt noted leaving room and exiting ED
--- OUTSIDE RECORDS SUMMARY | 2024-01-27 11:09 | XMS_ITS | Continuity of Care Document ---
Author Organization [facility] Address [address] [place] [address]- Care Team Providers Care Network Mgr Name Role Phone Steph KING, Funmi Forbes Primary Care Physician [phone] Encounter [facility] Date(s): 07/26/19 - 08/25/19 [facility] Adult [address] [place] [address]- [facility] Attending Physician: Funmi Choi NP Referring Physician: Ulices DELGADILLO, Hemant Clark Allergies, Adverse Reactions, Alerts Substance Reaction Severity Status Oranges Active Medications Abilify 15 mg oral tablet 15 mg, 1, tablet, By Mouth, Daily, # 30 tablet, Refills 0, Maintenance, 08/03/19 9:31:56 EST Start Date: 08/03/19 Status: Ordered cloNIDine 0.1 mg oral tablet 0.1 mg, 1, tablet, By Mouth, 2 times a day, # 60 tablet, Refills 0, Tot. Refills 0, Maintenance, 08/03/19 9:25:30 EST, Route to Pharmacy Electronically, [id number], [facility]/pharmacy #[id number], 153, cm, 08/03/19 9:01:07 EST, Height, 5... Start Date: 08/03/19 Status: Ordered dicyclomine 20 mg oral tablet 1 tablet = 20 mg, By Mouth, 4 times a day, PRN abdominal pain, # 28 tablet, 0 Refills, Maintenance,08/03/19 9:30:51 EST, Tablet, 153, cm, 08/03/19 9:01:07 EST, Height, 50, kg, 06/24/19 14:36:47 EST,Dry Weight Start Date: 08/03/19 Stop Date: 08/10/19 Status: Ordered melatonin 3 mg oral tablet 2 tablet = 6 mg, By Mouth, Daily at bedtime, PRN for insomnia, for 30 days, # 60 tablet, 0 Refills,Acute 09/02/19 9:25:19 EST, 08/03/19 9:25:19 EST, Tablet, 153, cm, 08/03/19 9:01:07 EST, Height, 50, kg, 06/24/19 14:36:47 EST, Dry Weight Start Date: 08/03/19 Stop Date: 09/02/19 Status: Ordered mirtazapine 15 mg oral tablet 1 tablet = 15 mg, By Mouth, Daily at bedtime, # 30 tablet, 0 Refills, Maintenance, 08/03/19 9:32:12EST, Tablet Start Date: 08/03/19 Status: Ordered PARoxetine 40 mg oral tablet 40 mg, 1, tablet, By Mouth, Daily, # 30 tablet, Refills 0, Maintenance, 08/03/19 9:31:47 EST Start Date: 08/03/19 Status: Ordered Trileptal 150 mg oral tablet 150 mg, 1, tablet, By Mouth, 3 times a day, # 60 tablet, Refills 0, Maintenance, 08/03/19 9:32:31 EST Start Date: 08/03/19 Status: Ordered Vistaril pamoate 50 mg oral capsule 1 capsule = 50 mg, By Mouth, 4 times a day, PRN for anxiety, # 40 capsule, 0 Refills, Maintenance, 08/03/19 9:31:25 EST, Capsule Start Date: 08/03/19 Status: Ordered Problem List Condition Effective Dates Status Health Status Inform ant ADHD(Confirmed) 12/08/11 Active Hearing loss, bilateral(Confirmed) Active Chronic hepatitis C(Confirmed) Active Anxiety, generalized(Confirmed) Active Post-traumatic stress disord er (PTSD)(Confirmed) 12/08/11 Active Depression, major, recurrent(Confirmed) Active Substance abuse(Confirmed) Active Social History Social History Type Response Smoking Status 10 or more cigarette s (1/2 pack or more)/day in last 30 days; Type: Cigarettes; Tobacco use times per day: 1 PPD; Started at age: 16; entered on: 07/20/19 Sex
--- OUTSIDE RECORDS SUMMARY | 2024-01-27 11:09 | XMS_ITS | Continuity of Care Document ---
Author Organization [facility] Rom[facility] Morris lt Address [address] [place] [address]- Care Team Providers Care Senior Coldfusion Developer Name Role Phone Steph Funmi KING Primary Care Physician [phone] Encounter [facility] Date(s): 12/26/19 - 01/25/20 [facility] Adult [address] [place] [address]- [facility] Attending Physician: AdmAdrian salgado Admitting Physician: AdmtrAdrian Referring Physician: Admtr, Ar8 Allergies, Adverse Reactions, Alerts Substance Reaction Severity Status Oranges Active Immunizations Given and Recorded Vaccine Date Status Refusal Reason Hepatitis B Vaccine (old term) 02/29/12 Recorded Hepatitis B Vaccine (old term) 02/19/11 Recorded Hepatitis B Vaccine (old term) 01/13/11 Recorded Hepatitis B Vaccine (old term) 97 Recorded Hepatitis B Vaccine (old term) 97 Recorded Hepatitis B Vaccine (old term) 97 Recorded tetanus-diphtheria toxoids (Td) 04/20/10 Recorded Meningococcal Conjugate Vaccine 04/20/10 Recorded Meningococcal Conjugate Vaccine 03/06/09 Recorded Human Papillomavirus Vaccine 02/20/10 Recorded Human Papillomavirus Vaccine 05/09/09 Recorded Human Papillomavirus Vaccine 03/06/09 Recorded tetanus/diphtheria/pertussis, acel(Tdap) 03/06/09 Recorded Zoster Vaccine Live 03/29/08 Recorded Zoster Vaccine Live 02/24/99 Recorded Poliovirus Vaccine, Inactivated 03/07/01 Recorded Poliovirus Vaccine, Inactivated 09/09/98 Recorded Poliovirus Vaccine, Inactivated 97 Recorded Poliovirus Vaccine, Inactivated 97 Recorded diphtheria/tetanus/pertussis, acel(DTaP) 03/07/01 Recorded diphtheria/tetanus/pertussis, acel(DTaP) 09/09/98 Recorded diphtheria/tetanus/pertussis, acel(DTaP) 97 Recorded diphtheria/tetanus/pertussis, acel(DTaP) 97 Recorded diphtheria/tetanus/pertussis, acel(DTaP) 97 Recorded Measles/Mumps/Rubella Virus Vaccine 05/26/98 Recor ded Haemophilus B Conj Vaccine (oldterm) 05/26/98 Eze rded Haemophilus B Conj Vaccine (oldterm) 97 Eze rded Haemophilus B Conj Vaccine (oldterm) 97 Eze rded Haemophilus B Conj Vaccine (oldterm) 97 Eze rded Medications Abilify 15 mg oral tablet 15 mg, 1, tablet, By Mouth, Daily, # 30 tablet, Refills 0, Maintenance, 08/03/19 9:31:56 EST Start Date: 08/03/19 Status: Ordered cloNIDine 0.1 mg oral tablet 0.1 mg, 1, tablet, By Mouth, 2 times a day, # 60 tablet, Refills 0, Tot. Refills 0, Maintenance, 08/03/19 9:25:30 EST, Route to Pharmacy Electronically, [facility]/pharmacy #[id number], 153, cm, 08/03/19 9:01:07 EST, Height, 50, kg, 06/24/19 14:36:47 EST, Dry Weight Start Date: 08/03/19 Status: Ordered Methadone By Mouth, 0 Refills, Maintenance, 01/01/20 7:34:00 EDT, Partial fill upon patient request Start Date: 01/01/20 Status: Ordered mirtazapine 30 mg oral tablet 1 tablet = 30 mg, By Mouth, Daily at bedtime, # 30 tablet, 0 Refills, Maintenance, 12/26/19 13:37:00 EDT, Tablet Start Date: 12/26/19 Status: Ordered prazosin 2 mg oral capsule 1 capsule = 2 mg, By Mouth, Daily at bedtime, # 30 capsule, 2 Refills, Maintenance, 12/26/19 13:49:00 EDT, [facility]/pharmacy #[id number], 153, cm, 08/03/19 9:01:00 EST, Height, 50, kg, 06/24/19 14:36:00 EST, Dry Weight Start Date: 12/26/19 Status: Ordered QUEtiapine 200 mg oral tablet See Instructions, take one tab daily in AM, 1 tab in afternoon and 2 tabs at HS, Refills 0, Maintenance, 12/26/19 13:38:00 EDT, Instructions Replace Required Details Start Date: 12/26/19 Status: Ordered Trileptal 150 mg oral tablet 300 mg, 2, tablet, By Mouth, 3 times a day, # 60 tablet, Refills 0, Maintenance, 08/03/19 9:32:31 EST Start Date: 08/03/19 Status: Ordered Problem List [...]
--- OUTSIDE RECORDS SUMMARY | 2024-01-27 11:09 | XMS_ITS | Continuity of Care Document ---
Author Organization [facility] Romel Morris lt Address [address] [place] [address]- Care Team Providers Care Kiln Mechanic Name Role Phone Steph Funmi KING Primary Care Physician En[facility] [place] Date(s): 11/02/19 - 11/12/19 [facility] Adult [address] [place] [address]- [facility] Attending Physician: AdmAdrian salgado Admitting [...] 08/03/19 9:25:30 EST, Route to Pharmacy Electronically, [id number], [facility]/pharmacy #[id number], 153, cm, 08/03/19 9:01:07 EST, Height, 5... Start Date: 08/03/19 Status: Ordered dicyclomine 20 mg oral tablet 1 tablet = 20 mg, By Mouth, 4 times a day, PRN abdominal pain, # 28 tablet, 0 Refills, Maintenance,08/03/19 9:30:51 EST, Tablet, 153, cm, 08/03/19 9:01:07 EST, Height, 50, kg, 06/24/19 14:36:47 EST,Dry Weight Start Date: 08/03/19 Stop Date: 08/10/19 Status: Ordered mirtazapine 15 mg oral tablet [...]
--- OUTSIDE RECORDS SUMMARY | 2024-01-27 11:09 | XMS_ITS | Continuity of Care Document ---
Author Organization [facility] Morris Address [address] [place] [id number]- Care Team Providers Care Spice [employer] Mill Name Role Phone Steph BASE REMOVER, Funmi Forbes Primary Care Physician [phone] Encounter [facility] Date(s): 07/24/19 - 08/25/19 [facility] Adult [address] [place] [address]- [facility] Attending Physician: Hemant Elena MD Allergies, Adverse Reactions, Alerts Substance Reaction Severity [...] 08/03/19 9:25:30 EST, Route to Pharmacy Electronically, [id number], [facility]/pharmacy #[id number], 153, cm, 08/03/19 9:01:07 EST, [...]
--- OUTSIDE RECORDS SUMMARY | 2024-01-27 11:09 | XMS_ITS | Continuity of Care Document ---
Author Organization [facility] Rom[facility] Morris lt Address [address] [place] [address]- Care Team Providers Care Collar Band Creaser Name Role Phone Funmi Choi NP Primary Care Physician Encounter [facility] [place] Date(s): 09/01/22 - 12/04/22 [facility] Adult [address] [place] [address]- Attending Physician: Funmi Choi NP Allergies, Adverse Reactions, Alerts Substance Reaction Severity Status Oranges Active Immunizations Given and Recorded Vaccine Date Status Refusal Reason SARS-CoV-2 mRNA ([id number]) vax 08/10/22 Recorded hepatitis B adult vaccine 02/16/20 Given Hepatitis B Immune Globulin 1 02/16/20 Given Hepatitis B Vaccine (old term) 02/29/12 Recorded [...] B Conj Vaccine (oldterm) 97 Eze rded 1Result Comment: [employer] Medications Abilify 15 mg oral tablet 15 mg, 1, tablet, By Mouth, Daily, # 30 tablet, Refills 0, Maintenance, 08/03/19 9:31:56 EST Start Date: 08/03/19 Status: Ordered Methadone By Mouth, 0 Refills, Maintenance, 01/01/20 7:34:00 EDT, Partial fill upon patient request Start Date: 01/01/20 Status: Ordered mirtazapine 30 mg oral tablet 1 tablet = 30 mg, By Mouth, Daily at bedtime, # 30 tablet, 0 Refills, Maintenance, 12/26/19 13:37:00 EDT, Tablet Start Date: 12/26/19 Status: Ordered nalOXONE 4 mg/0.1 mL nasal spray = 4 mg, Nares, Both, Once, # 2 each, 0 Refills, Soft Stop, 11/22/20 6:44:00 EDT, [facility]/pharmacy #[id number], Partial fill upon patient request if the prescription is for a schedule II opioid drug., 153, cm, 07/29/20 13:19:00 EST, Height, 52.5, kg, 02/17/20 0:... Start Date: 11/22/20 Status: Ordered QUEtiapine 200 mg oral tablet See Instructions, take one tab daily in AM, 1 tab in afternoon and 2 tabs at HS, Refills 0, Maintenance, 12/26/19 13:38:00 EDT, Instructions Replace Required Details Start Date: 12/26/19 Status: Ordered Suboxone 8 mg-2 mg Sublingual Film 2 film, Sublingual, Daily, or as directed, # 10 film, 0 Refills, Maintenance, 11/22/20 6:44:00 EDT,[facility]/pharmacy #[id number], Partial fill upon patient request if the prescription is for a schedule II opioid drug. MERLENE [id number], 2 film Sublingual Daily,Inst... Start Date: 11/22/20 Status: Ordered Trileptal 150 mg oral tablet 300 mg, 2, tablet, By Mouth, 3 times a day, # 60 tablet, Refills 0, Maintenance, 08/03/19 9:32:31 EST Start Date: 08/03/19 Status: Ordered Problem List Condition Confirmation Course Effective Dates Status Health St atus Informant ADHD Confirmed 12/08/11 Active Hearing loss, bilateral Confirmed Active Chronic hepatitis C Confirmed Active Anxiety, generalized Confirmed Active Post-traumatic stress disorder (PTSD) Confirmed 12/08/11 Active Depression, major, recurrent Confirmed Active Substance abuse Confirmed Active Social History Social History Type Response Smoking Status 10 or more cigarette s (1/2 pack or more)/day in last 30 days; Type: Cigarettes; Tobacco use times per day: 1 PPD; Started at age: 16; entered on: 07/20/19 Sex Patient Care team information Care Team Personnel Name: Funmi Choi NP Position: [facility] PCO Associate Professional Member Role: PCP Address: Address: [address] [place] [address]- Care Team Related Persons Name: JOHNNY GARCIA Address: home [address] [place] [address] Name: SELENA LAUGHLIN Address: home [address] [place] [address] Name: ERICKA HORNER Address: home [address] [place] [address]
--- OUTSIDE RECORDS SUMMARY | 2024-01-27 11:09 | XMS_ITS | Continuity of Care Document ---
Author Organization [facility] [place] [address] [facility] [place] [address]- Care Team Providers Care Bodybuilder Name Role Phone Steph KING, Funmi Forbes Primary Care Physician Encounter 07/25/19 - 08/01/19 [facility] [address], [facility] [address] [place] [address]- [phone] Attending Physician: Funmi Choi NP Admitting Physician: Funmi Choi NP Referring Physician: Funmi Choi NP Allergies, Adverse Reactions, Alerts Substance Reaction Severity Status Oranges Active Problem List Condition Effective Dates Status Health Status Inform ant ADHD(Confirmed) 12/08/11 Active Hearing loss, bilateral(Confirmed) Active Chronic hepatitis C(Confirmed) Active Post-traumatic stress disord er (PTSD)(Confirmed) 12/08/11 Active Depression, major, recurrent(Confirmed) Active Substance abuse(Confirmed) Active Social History Social History Type Response Smoking Status 10 or more cigarette s (1/2 pack or more)/day in last 30 days; Type: Cigarettes; Tobacco use times per day: 1 PPD; Started at age: 16; entered on: 07/20/19 Sex
--- OUTSIDE RECORDS SUMMARY | 2024-01-27 11:09 | XMS_ITS | Continuity of Care Document ---
Author Organization [facility] lt Address [address] [place] [address]- Care Team Providers Care Header Operator Name Role Phone Steph Funmi KING Primary Care Physician [phone] Encounter [facility] Date(s): 09/01/22 - 10/01/22 [facility] Adult [address] [place] [address]- Allergies, Adverse Reactions, Alerts Substance Reaction Severity Status Oranges Active Immunizations Given and Recorded Vaccine Date Status Refusal Reason hepatitis B adult vaccine 02/16/20 Given Hepatitis [...] Vaccine (oldterm) 97 Eze rded 1Result Comment: [facility] Medications Abilify 15 mg oral tablet 15 [...] 0 Refills, Soft Stop, 11/22/20 6:44:00 EDT, [facility]/pharmacy #[id number], Partial fill upon patient request if [...] 10 film, 0 Refills, Maintenance, 11/22/20 6:44:00 EDT,[facility]/pharmacy #[id number], Partial fill upon patient request if the prescription is for a schedule II opioid drug. MERLENE [id number], 2 film Sublingual Daily,Inst... Start Date: 11/22/20 [...] Associate Professional Member Role: PCP Address: Address: [address] [place] [address]- Care Team Related Persons Name: JOHNNY GARCIA Address: home [address] [place] [address] Name: SELENA LAUGHLIN Address: home [address] [place] [address] Name: ERICKA HORNER Address: home [address] [place] [id number]
--- OUTSIDE RECORDS SUMMARY | 2024-01-27 11:10 | XMS_ITS | Continuity of Care Document ---
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 Name Role Phone Steph Funmi KING Primary Care Physician Encounter [facility] Date(s): 11/04/22 - 12/04/22 [facility] Adult [address] [place] [address]- Attending Physician: Admtr, Ar8 Admitting Physician: Admtr, Ar8 Referring Physician: Admtr, Ar8 Allergies, Adverse Reactions, Alerts Substance Reaction Severity Status Oranges Active Immunizations Given and Recorded Vaccine Date Status Refusal Reason SARS-CoV-2 mRNA ([id number]) vax 08/10/22 Recorded hepatitis B adult vaccine [...] Vaccine (oldterm) 97 Eze rded 1Result Comment: [facility] Medications Abilify 15 mg oral tablet 15 [...] 0 Refills, Soft Stop, 11/22/20 6:44:00 EDT, [facility]/pharmacy #[id number], Partial fill upon patient request [...] 10 film, 0 Refills, Maintenance, 11/22/20 6:44:00 EDT,[facility]/pharmacy #[id number], Partial fill upon patient request if the prescription is for a schedule II opioid drug. MERLENE [id number], 2 film Sublingual Daily,Inst... Start Date: 11/22/20 [...] at age: 16; entered on: 07/20/19 Sex Note * Event Display: Non BH Lab Results Authored Date: * Event Display: Non BH Lab Results Authored Date: * Event Display: Non BH Lab Results Authored Date: * Event Display: Non BH Lab Results Authored Date: Patient Care team information Care Team Personnel Name: Funmi Choi NP Position: S PCO Associate Professional Member Role: PCP Address: Address: [address] [place] [address]- Care Team Related Persons Name: JOHNNY GARCIA Address: home [address] [place] [address] Name: SELENA LAUGHLIN Address: home [address] [place] [address] Name: ERICKA HORNER Address: home [address] [place] [address]
--- OUTSIDE RECORDS SUMMARY | 2024-01-27 11:10 | XMS_ITS | Continuity of Care Document ---
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 NEGATIVE???Hemoglobin, Urine - NEGATIVE???Nitrite, Urine - NEGATIVE???Leukocyte, Urine - NEGATIVE???Urobilin ogen - NORMAL? ?WBC's, Urine - 2 /HPF? ?RBC's, Urine - <1 /HPF? ?Squamous Epith - 3 /HPF? ?Mucus- SLIGHT???Hold Urine Culture - Testing available 48 hours from time of collection. Immunizations This Visit Not Given Vaccine Commentsinfluenza virus vaccine, inactivated Permanently Refused Allergies (NKA means No Known Allergies) Oranges Seafood shellfish Problems Active Problems??(7) ADHD?? Anxiety, generalized?? Chronic hepatitis C?? Depression, major, recurrent?? Hearing loss, bilateral?? Post-traumatic stress disorder (PTSD)?? Substance abuse?? Education Materials Below is the list of Educational Leaflet Providered with your Discharge Instructions. Valuables and Belongings I fully understand and agree that [facility] accepts no responsibility for all my personal property including clothing, toilet articles, radios, jewelry, dentures, hearing aids, rings, money, or any other property that is in my possession or is brought to me after admission. I understand certain valuables may be placed in a hospital safe for a short period of time. I understand that the hospital is not liable for loss or damage due to accident, fire, or other natural occurrence while said property is in the safe. I accept full responsibility for any personal property that I keep with me, and will not hold the hospital responsible in case of loss or disappearance. I acknowledge that i have been encouraged to send valuables and belongings home. ?? Review of Valuable and Belonging List: With patient Date for Pt to Sign Valuables/Belongings: 07/16/23 02:32:00 ?? Other Discharge Information ?? Wound Assessment?? Wound Assessment?? Wound Type I: Traumatic Wound ? Pulmonary Rehab Status?? Pulmonary Rehab Discharge Status?? Respiratory Rate: 18 br/min ? Common Emergency Awareness Tips IS IT A STROKE? Act FAST and Check for these signs: FACE Does the face look uneven? ARM Does one arm drift down? SPEECH Does their speech sound strange? TIME Call at any sign of stroke ?? Heart Attack Signs Chest discomfort: Most heart attacks involve discomfort in the center of the chest and lasts more than a few minutes, or goes away and comes back. It can feel like uncomfortable pressure, squeezing, fullness or pain. Discomfort in upper body: Symptoms can include pain or discomfort in one or both arms, back, neck, jaw or stomach. Shortness of breath: With or without discomfort. Other signs: Breaking out in a cold sweat, nausea, or lightheaded. Remember, MINUTES DO MATTER. If you experience any of these heart attack warning signs, call to get immediate medical attention! ?? Smoking can increase your chances of developing chronic health problems and can cause harmful effects to other family members in your house. If you smoke, you are strongly encouraged to quit. Please call [facility] [email or web address] Link at [phone] or 8-664-580Lucidworks ([phone]) or log in to [email or web address] for referrals to smoking cessation programs. ?? 505 Suicide & Crisis Lifeline is available 14/03 if you or someone you know needs to find a reason to keep living. By calling 183 you'll be connected to a skilled, trained counselor at a crisis center in your area. INPATIENT DISCHARGE INSTRUCTIONS SIGNATURE PAGE TRUMAN, CHRISTINA Location:[facility] Registration Date and Time:07/16/2023 02:00 EST Primary Care Physician: Not on Staff, PCP Attending Physician: Julio C DELGADILLO, [facility], I CHRISTINA LAUGHLIN, have received the above patient education materials/instructions and have verbalized understanding. If ambulance or transport services are being used I further acknowledge being given a choice of service. ?? If you need to contact me, please call me at this number: . Patient/Anthropology Department Chair Name: Patient/Anthropology Department Chair Signature: Relationship to Patient: Witness Name/Signature: Date: Patient Care team information Care Team Personnel Name: Grady Villagomez RN Position: [facility] RN Member Role: Primary Care Nurse Name: Greg Castro RN Position: [facility] RN Member Role: Primary Care Nurse Name: Not on Staff, PCP Position: [facility] Physician (General Medicine) Member Role: PCP Name: Palmira Gutierrez RN Position: [facility] RN Member Role: Primary Care Nurse Name: Rand Tomas LPN Position: [facility] RN Member Role: Primary Care Nurse Name: Lalitha Lemus RN Position: [facility] RN Member Role: Primary Care Nurse Name: Heber BOBBY Attending Position: [facility] ED Medicine MD Name: Rosa M Joseph DO Position: [facility] Resident Member Role: ED Resident Address: Address: [address] [place] [address] Name: Beverly Sandhu RN Position: [facility] ED RN W/OE and Tasks Member Role: Patient Care Provider Name: Brenda Melvin Position: [facility] ED TA [facility] Member Role: Patient Care Provider Name: Milagro Escobedo Position: [facility] ED OA Charge Member Role: ED Associate Care Team Related Persons Name: JOHNNY GARCIA Address: home [address] [place] [address] Name: SELENA LAUGHLIN Address: home [address] [place] [address] Name: ERICKA HORNER Address: home [address] [place] [address]
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
--- OUTSIDE RECORDS SUMMARY | 2024-01-27 11:10 | XMS_ITS | Continuity of Care Document ---
Author Organization [facility] Address [address] [place] [address]- Care Team Providers Care Agriculture Laborer Name Role Phone Not on Staff, PCP Primary Care Physician Unavail able Encounter [facility] Date(s): 11/01/23 - 11/01/[address] [address]- Discharge Disposition: A-D/C Home Attending Physician: Dg Anthony MD Admitting Physician: Dg Anthony MD Referring Physician: Not on Staff, Referring MD Allergies, Adverse Reactions, Alerts Substance Reaction Severity Status shellfish Active Seafood Active Oranges Active Immunizations Given and Recorded Vaccine Date Status Refusal Reason SARS-CoV-2(COVID-19)mRNA-LNP vac(ake960) 08/05/23 Recorded influenza virus vaccine, inactivated 07/27/23 Eze rded influenza virus vaccine, inactivated 04/29/17 Eze rded SARS-CoV-2 mRNA ([id number]) vax 08/10/22 Recorded SARS-CoV-2 (COVID-19) mRNA BNT-162b2 vac 04/16/21 Recorded hepatitis B adult vaccine 02/16/20 Given Hepatitis B Immune Globulin 1 02/16/20 Given tetanus/diphtheria/pertussis, acel(Tdap) 02/08/17 Recorded tetanus/diphtheria/pertussis, acel(Tdap) 03/06/09 Recorded Hepatitis B Vaccine (old term) 02/29/12 Recorded Hepatitis B Vaccine (old term) 02/19/11 Recorded Hepatitis B Vaccine (old term) 01/13/11 Recorded Hepatitis B Vaccine (old term) 97 Recorded Hepatitis B Vaccine (old term) 97 Recorded Hepatitis B Vaccine (old term) 97 Recorded tetanus-diphtheria toxoids (Td) 04/20/10 Recorded Meningococcal Conjugate Vaccine 8/30/10 Recorded Meningococcal Conjugate Vaccine 03/06/09 Recorded Human Papillomavirus Vaccine 02/20/10 Recorded Human Papillomavirus Vaccine 05/09/09 Recorded Human Papillomavirus Vaccine 03/06/09 Recorded Zoster Vaccine Live 03/29/08 Recorded [...] Vaccine (oldterm) 97 Eze rded 1Result Comment: [employer] Medications Abilify 15 mg oral tablet 15 [...] 4:20:00 EST Start Date: 07/16/23 Status: Ordered Flovent HFA 220 mcg/inh inhalation [...] opioid drug. Start Date: 07/20/23 Status: Ordered mirtazapine 30 mg oral tablet 1 tablet = 30 mg, By Mouth, Daily at bedtime, # 30 tablet, 0 Refills, Maintenance, 12/26/19 13:37:00 EDT, Tablet Start Date: 12/26/19 Status: Ordered nalOXONE 4 mg/0.1 mL nasal spray = 4 mg, Nares, Both, Once, # 2 each, 0 Refills, Soft Stop, 11/22/20 6:44:00 EDT, [facility]/pharmacy #[id number], Partial fill upon patient request if [...] recurrent Confirmed Active Substance abuse Confirmed Active Vital Signs Most recent to oldest [Reference Range]: 1 Height 152 cm (11/01/23 7:39 PM) Weight 59.7 kg (11/01/23 7:39 PM) Oxygen Saturation [94-100 %] 96 % (11/01/23 7:39 PM) Pulse Rate [55-90 bpm] 105 bpm *H* (11/01/23 7:39 PM) Blood Pressure [90-138/55-84 mm Hg] 148/ 92mm Hg *H* (11/01/23 7:39 PM) Respiratory Rate [16-30 br/min] 18 br/mi n (11/01/23 7:39 PM) Temperature [96.8-100.4 DegF] 98.6 DegF (11/01/23 7:39 PM) Mode of Delivery (Oxygen) Room air (11/01/23 7:39 PM) Temperature Route Temporal (11/01/23 7:39 PM) Dry Weight 59.7 kg (11/01/23 7:39 PM) Social History Social History Type Response Smoking Status 10 or more cigarette s (1/2 pack or more)/day in last 30 days; Type: Cigarettes; Tobacco use times per day: 1 PPD; Started at age: 16; entered on: 07/20/19 Sex Note * Palmira Bedoya: PERFORM, SIGN, VERIFY Event Display: Patient Education Handout Authored Date: [id number] Patient Care team information Care Team Personnel Name: Grady Villagomez RN Position: S RN Member Role: Primary Care Nurse Name: Greg Castro RN Position: S RN Member Role: Primary Care Nurse Name: Not on Staff, PCP Position: [facility] Physician (General Medicine) Member Role: PCP Name: Palmira Gutierrez RN Position: S RN Member Role: Primary Care Nurse Name: Rand Tomas LPN Position: S RN Member Role: Primary Care Nurse Name: Lalitha Lemus RN Position: S RN Member Role: Primary Care Nurse Care Team Related Persons Name: JOHNNY GARCIA Address: home [address] [place] [address] Name: SELENA LAUGHLIN Address: home [address] [place] [address] Name: ERICKA HORNER Address: home [address] [place] [address]
--- OUTSIDE RECORDS SUMMARY | 2024-01-27 11:10 | XMS_ITS | Continuity of Care Document ---
Author Organization [facility] Romel Morris lt Address [address] [place] [address]- Care Team Providers Care Cardiology Technologist Name Role Phone Steph Funmi KING Primary Care Physician Encounter [facility] Date(s): 07/23/22 - 08/22/22 [facility] Adult [address] [place] [address]- Allergies, Adverse Reactions, Alerts Substance Reaction Severity [...] Vaccine (oldterm) 97 Eze rded 1Result Comment: [facility] Medications Abilify 15 mg oral tablet 15 [...] 0 Refills, Soft Stop, 11/22/20 6:44:00 EDT, [facility]/pharmacy #[id number], Partial fill upon patient request if [...] 10 film, 0 Refills, Maintenance, 11/22/20 6:44:00 EDT,[facility]/pharmacy #[id number], Partial fill upon patient request if the prescription is for a schedule II opioid drug. MERLENE [id number], 2 film Sublingual Daily,Inst... Start Date: 11/22/20 [...] Team Personnel Name: Funmi Choi NP Position: [facility] PCO Associate Professional Member Role: PCP Address: Address: [address] [place] [address]- Care Team Related Persons Name: JOHNNY GARCIA Address: home [address] [place] [address] Name: SELENA LAUGHLIN Address: home [address] [place] [address] Name: ERICKA HORNER Address: home [address] [place] [address]
--- OUTSIDE RECORDS SUMMARY | 2024-01-27 11:10 | XMS_ITS | Continuity of Care Document ---
Author Organization [facility] Romel Morris lt Address [address] [place] [address]- Care Team Providers Care Golf Club Head Inspector Name Role Phone Funmi Choi NP Primary Care Physician Encounter [facility] Date(s): 09/25/19 - 12/02/19 [facility] Adult [address] [place] [address]- [facility] Attending Physician: Funmi Choi NP Allergies, Adverse [...] 08/03/19 9:25:30 EST, Route to Pharmacy Electronically, [id number], [facility]/pharmacy #[id number], 153, [...]
--- OUTSIDE RECORDS SUMMARY | 2024-01-27 11:10 | XMS_ITS | Continuity of Care Document ---
Author Organization [facility] Address [address] [place] [address]- Care Team Providers Care Assistant Head Cashier Name Role Phone Steph Funmi KING Primary Care Physician Encounter [facility] Date(s): 07/29/20 - 08/28/[address] [facility] [address] [place], [place] [address] [[email or web address] Attending Physician: Adrian Mijares Admitting Physician: AdmAdrian salgado Referring Physician: AdmtrAdrian Allergies, Adverse Reactions, Alerts Substance Reaction Severity [...] Vaccine (oldterm) 97 Eze rded 1Result Comment: [employer] Medications Abilify 15 mg oral tablet 15 mg, 1, tablet, By Mouth, Daily, # 30 tablet, Refills 0, Maintenance, 08/03/19 9:31:56 EST Start Date: 08/03/19 Status: Ordered cloNIDine 0.1 mg oral tablet 0.1 mg, 1, tablet, By Mouth, 2 times a day, # 60 tablet, Refills 0, Tot. Refills 0, Maintenance, 08/03/19 9:25:30 EST, Route to Pharmacy Electronically, [facility]/pharmacy #[id number], 153, cm, 08/03/19 9:01:07 EST, Height, [...] Ordered prazosin 2 mg oral capsule 1 capsule, By Mouth, Daily at bedtime, office visit needed for furtehr refills, # 30 capsule, 0 Refills, Maintenance, 08/08/20 15:09:00 EST, [facility]/pharmacy #[id number], 153, cm, 07/29/20 13:19:00 EST, Height, 52.5, kg, 02/17/20 0:49:00 EDT, Dry Weight Start Date: 08/08/20 Status: Ordered QUEtiapine 200 mg oral tablet [...]
--- OUTSIDE RECORDS SUMMARY | 2024-01-27 11:10 | XMS_ITS | Continuity of Care Document ---
Author Organization [facility] Address [address] [place] [address]- Care Team Providers Care Glove Parts Inspector Name Role Phone Not on Staff, PCP Primary Care Physician Unavail able Encounter [facility] Date(s): 09/05/23 - 10/05/23 [facility] [address] [place] [address] Attending Physician: Adrian Mijares Admitting Physician: AdmtrAdrian Referring Physician: Admtr, Ar8 Allergies, Adverse Reactions, Alerts Substance Reaction Severity Status shellfish Active Seafood Active Oranges Active Immunizations Given and Recorded Vaccine Date Status Refusal Reason SARS-CoV-2(COVID-19)mRNA-LNP vac([id number]) 08/05/23 Recorded influenza virus vaccine, inactivated 07/27/23 Eze rded influenza virus vaccine, inactivated 04/29/17 Eze rded SARS-CoV-2 mRNA ([id number]) vax 08/10/22 Recorded SARS-CoV-2 (COVID-19) mRNA BNT-162b2 [...] Vaccine (oldterm) 97 Eze rded 1Result Comment: [facility] Medications Abilify 15 mg oral tablet 15 [...] 0 Refills, Soft Stop, 11/22/20 6:44:00 EDT, [facility]/pharmacy #[id number], Partial fill upon patient request [...] Team Personnel Name: Grady Villagomez RN Position: [facility] RN Member Role: Primary Care Nurse Name: Greg Castro RN Position: S RN Member Role: Primary Care Nurse Name: Not on Staff, PCP Position: [facility] Physician (General Medicine) Member Role: PCP Name: Palmira Gutierrez RN Position: [facility] RN Member Role: Primary Care Nurse Name: Rand Tomas LPN Position: [facility] RN Member Role: Primary Care Nurse Name: Lalitha Lemus RN Position: [facility] RN Member Role: Primary Care Nurse Care Team Related Persons Name: JOHNNY GARCIA Address: home [address] [place] [address] Name: SELENA LAUGHLIN Address: home [address] [place] [address] Name: ERICKA HORNER Address: home [address] [place] [address]
--- OUTSIDE RECORDS SUMMARY | 2024-01-27 11:10 | XMS_ITS | Continuity of Care Document ---
Author Organization [facility] Romel Morris Address [address] [place] [address]- Care Team Providers Care Customer Service Leader Name Role Phone Funmi Choi NP Primary Care Physician Encounter [facility] Date(s): 08/03/19 - 08/10/19 [facility] Adult [address] [place] [address]- [facility] Encounter Diagnosis Chronic hepatitis C(Discharge Diagnosis) - 08/03/19 Depression, major, recurrent(Discharge Diagnosis) - 08/03/19 Substance abuse(Discharge Diagnosis) - 08/03/19 Anxiety, generalized(Discharge Diagnosis) - 08/03/19 Abdominal pain(Discharge Diagnosis) - 08/03/19 Attending Physician: Funmi Choi NP Allergies, Adverse [...] 08/03/19 9:25:30 EST, Route to Pharmacy Electronically, [id number], [facility]/pharmacy #[id number], 153, cm, 08/03/19 9:01:07 EST, [...] Depression, major, recurrent(Confirmed) Active Substance abuse(Confirmed) Active Diagnosis Diagnosis Type Effective Dates Health Status Clinical Service Informant Chronic hepatitis C Discharge Diagnosis 08/03/19 Depression, major, recurrent Discharge Diagnosis 08/03/19 Substance abuse Discharge Diagnosis 08/03/19 Anxiety, generalized Discharge Diagnosis 08/03/19 Abdominal pain Discharge Diagnosis 08/03/19 Procedures Procedure Date Related Diagnosis Body Site Status Reference (Outside) Laborato ry +urine screen for cannaninoids, cocaine and opiates. neg ETOH. Lipase 13, AST 124, ALT 328, NA 138, K 3.9, gluc 163, BUN 16, creat 0.5, WBC 8.45, RBC 4.08, hgb 12.9, hct 38.5, plt 218 1 07/24/19 Comple bettina 1+urine screen for cannaninoids, cocaine and opiates. neg ETOH. Lipase 13, AST 124, ALT 328, NA 138,K 3.9, gluc 163, BUN 16, creat 0.5, WBC 8.45, RBC 4.08, hgb 12.9, hct 38.5, plt 218 Vital Signs Most recent to oldest [Reference Range]: 1 Height 153 cm (08/03/19 9:01 AM) Weight 50.1 kg (08/03/19 9:01 AM) Oxygen Saturation [94-100 %] 95 % (08/03/19 9:01 AM) Pulse Rate [55-90 bpm] 78 bpm (08/03/19 9:01 AM) Body Mass Index [18.5-24.99] 21.4 (08/03/19 9:01 AM) Blood Pressure [90-138/55-84 mm Hg] 108/ 62mm Hg (08/03/19 9:01 AM) Temperature [96.8-100.4 DegF] 98.7 DegF (08/03/19 9:01 AM) Blood pressure sites Arm, right (08/03/19 9:01 AM) Social History Social History Type Response Smoking Status 10 or more cigarette s (1/2 pack or more)/day in last 30 days; Type: Cigarettes; Tobacco use times per day: 1 PPD; Started at age: 16; entered on: 07/20/19 Sex
--- OUTSIDE RECORDS SUMMARY | 2024-01-27 11:10 | XMS_ITS | Continuity of Care Document ---
Author Organization [facility] ter Address [address] [place] [address]- Care Team Providers Care Bologna Lacer Name Role Phone Funmi Choi NP Primary Care Physician Encounter [facility] Date(s): 07/21/19 - 09/16/[address] [address]- [facility] Attending Physician: Funmi Choi NP Admitting Physician: [...] 08/03/19 9:25:30 EST, Route to Pharmacy Electronically, [id number], [facility]/pharmacy #[id number], 153, cm, 08/03/19 [...] 30 days, # 60 tablet, 0 Refills,Acute 10/02/19 9:25:00 EST, 09/02/19 9:25:00 EST, Tablet, [facility]/pharmacy #[id number], 153, cm, 08/03/19 9:01:00 EST, Height, 50, kg, 06/24/19 14:36:00 EST, Dry... Start Date: 09/02/19 Stop Date: 10/02/19 Status: Ordered mirtazapine 15 mg oral tablet [...]
--- OUTSIDE RECORDS SUMMARY | 2024-01-27 11:10 | XMS_ITS | Continuity of Care Document ---
Author Organization [facility] Address [address] [place] [address]- Care Team Providers Care Herbarium Curator Name Role Phone Funmi Choi NP Primary Care Physician Encounter [facility] Date(s): 07/29/20 - 08/05/20 [facility] [address], [place] [address] Attending Physician: Mya Kwong MD Referring Physician: Funmi Choi NP Allergies, Adverse [...] Vaccine (oldterm) 97 Eze rded 1Result Comment: [facility] Medications Abilify 15 mg oral tablet 15 mg, 1, tablet, By Mouth, Daily, # 30 tablet, Refills 0, Maintenance, 08/03/19 9:31:56 EST Start Date: 08/03/19 Status: Ordered acetaminophen 500 mg oral tablet 2 tablet = 1,000 mg, By Mouth, 3 times a day, PRN Pain , Moderate, for 10 days, # 24 tablet, 0 Refills, Acute 08/08/20 13:50:00 EST, 07/29/20 13:50:00 EST, [id number], Partial fill upon patient request if the prescription is for a schedule II... Start Date: 07/29/20 Stop Date: 08/08/20 Status: Ordered Bactrim DS 800 mg-160 mg oral tablet 1 tablet, By Mouth, 2 times a day, for 10 days, # 20 tablet, 0 Refills, Acute 08/08/20 13:50:00 EST, 07/29/20 13:50:00 EST, Tablet, [id number], Partial fill upon patient request if the prescription is for a schedule II opioid drug., 1 tablet B... Start Date: 07/29/20 Stop Date: 08/08/20 Status: Ordered cephalexin monohydrate 500 mg oral capsule 1 capsule = 500 mg, By Mouth, 4 times a day, for 7 days, # 28 capsule, 0 Refills, Acute 08/08/20 16:34:00 EST, 08/01/20 16:34:00 EST, Capsule, [id number], Partial fill upon patient request ifthe prescription is for a schedule II opioid drug.,... Start Date: 08/01/20 Stop Date: 08/08/20 Status: Ordered cloNIDine 0.1 mg oral tablet 0.1 mg, 1, tablet, By Mouth, 2 times a day, # 60 tablet, Refills 0, Tot. Refills 0, Maintenance, 08/03/19 9:25:30 EST, Route to Pharmacy Electronically, [facility]/pharmacy #[id number], 153, cm, 08/03/19 9:01:07 EST, [...] capsule, 2 Refills, Maintenance, 12/26/19 13:49:00 EDT, [facility]/pharmacy #[id number], 153, cm, 08/03/19 9:01:00 EST, Height, [...] oldest [Reference Range]: 1 Height 153 cm (07/29/20 1:19 PM) Oxygen Saturation [94-100 %] 96 % (07/29/20 1:19 PM) Pulse Rate [55-90 bpm] 69 bpm (07/29/20 1:19 PM) Blood Pressure [90-138/55-84 mm Hg] 92/7 9mm Hg (07/29/20 1:19 PM) Respiratory Rate [16-30 br/min] 16 br/mi n (07/29/20 1:19 PM) Temperature [96.8-100.4 DegF] 97.8 DegF (07/29/20 1:19 PM) Mode of Delivery (Oxygen) Room air (07/29/20 1:19 PM) Blood pressure sites Arm, right (07/29/20 1:19 PM) Temperature Route Temporal (07/29/20 1:19 PM) Weight Obtained Via Standing scale (07/29/20 1:19 PM) Social History Social History Type Response Smoking Status 10 or more cigarette s (1/2 pack or more)/day in last 30 days; Type: Cigarettes; Tobacco use times per day: 1 PPD; Started at age: 16; entered on: 07/20/19 Sex
--- OUTSIDE RECORDS SUMMARY | 2024-01-27 11:10 | XMS_ITS | Continuity of Care Document ---
Author Organization [facility] ter Address [address] [place] [address]- Care Team Providers Care Organizational Psychologist Name Role Phone Steph Funmi KING Primary Care Physician [place] [facility] [place] 06/[place]/[address] [address]- [facility] Discharge Disposition: A-D/C Home Attending Physician: Andrea Palencia MD Admitting Physician: Andrea Palencia MD Referring Physician: Not on Staff, Referring [...] Vaccine (oldterm) 97 Eze rded 1Result Comment: [facility] Medications Abilify 15 mg oral tablet 15 mg, 1, tablet, By Mouth, Daily, # 30 tablet, Refills 0, Maintenance, 08/03/19 9:31:56 EST Start Date: 08/03/19 Status: Ordered cloNIDine 0.1 mg oral tablet 0.1 mg, 1, tablet, By Mouth, 2 times a day, # 60 tablet, Refills 0, Tot. Refills 0, Maintenance, 08/03/19 9:25:30 EST, Route to Pharmacy Electronically, [facility]/pharmacy #[id number], 153, cm, 08/03/19 9:01:07 EST, [...] capsule, 2 Refills, Maintenance, 12/26/19 13:49:00 EDT, [facility]/pharmacy #[id number], 153, cm, 08/03/19 9:01:00 EST, [...] recent to oldest [Reference Range]: 1 2 Oxygen Saturation [94-100 %] 100 % (06/12/20 6:23 PM) 99 % (06/12/20 4:11 PM) Pulse Rate [55-90 bpm] 66 bpm (06/12/20 6:23 PM) 100 bpm *H* (06/12/20 4:11 PM) Blood Pressure [90-138/55-84 mm Hg] 108/ 58mm Hg (06/12/20 6:23 PM) 111/63mm Hg (06/12/20 4:11 PM) Respiratory Rate [16-30 br/min] 18 br/mi n (06/12/20 6:23 PM) 19 br/min (06/12/20 4:11 PM) Temperature [96.8-100.4 DegF] 98.2 DegF (06/12/20 6:23 PM) Mode of Delivery (Oxygen) Room air (06/12/20 6:23 PM) Room air (06/12/20 4:11 PM) Blood pressure sites Arm, left (06/12/20 6:23 PM) Arm, right (06/12/20 4:11 PM) Temperature Route Oral (06/12/20 6:23 PM) Social History Social History Type Response Smoking Status 10 or more cigarette s (1/2 pack or more)/day in last 30 days; Type: Cigarettes; Tobacco use times per day: 1 PPD; Started at age: 16; entered on: 07/20/19 Sex
--- OUTSIDE RECORDS SUMMARY | 2024-01-27 11:10 | XMS_ITS | Continuity of Care Document ---
Author Organization [facility] Address [address] [place] [address]- Care Team Providers Care Associate Professor Of Automation Name Role Phone Funmi Choi NP Primary Care Physician [place] [facility] [place] 12/26/19 - 01/02/20 [facility] [address] [place] [address]- [facility] Encounter Diagnosis Substance abuse(Discharge Diagnosis) - 12/26/19 Depression, major, recurrent(Discharge Diagnosis) - 12/26/19 Post-traumatic stress disorder (PTSD)(Discharge Diagnosis) - 12/26/19 Anxiety, generalized(Discharge Diagnosis) - 12/26/19 Chronic hepatitis C(Discharge Diagnosis) - 12/26/19 Attending Physician: Funmi Choi NP Allergies, Adverse [...] 08/03/19 9:25:30 EST, Route to Pharmacy Electronically, [facility]/pharmacy #[id number], 153, cm, 08/03/19 9:01:07 EST, [...] capsule, 2 Refills, Maintenance, 12/26/19 13:49:00 EDT, [id number], 153, cm, 08/03/19 9:01:00 EST, Height, [...] 4 times a day, PRN for anxiety, for 30 days, # 90 capsule, 0 Refills, Acute 01/25/20 13:51:00 EDT, 12/26/19 13:51:00 EDT, Capsule, [id number], 153, cm, 08/03/19 9:01:00 EST, Height, 50, kg, 06/24/19 14:36:00 EST, D... Start Date: 12/26/19 Stop Date: 01/25/20 Status: Ordered Problem List Condition Effective Dates Status Health Status Inform ant ADHD(Confirmed) 12/08/11 Active Hearing loss, bilateral(Confirmed) Active Chronic hepatitis C(Confirmed) Active Anxiety, generalized(Confirmed) Active Post-traumatic stress disord er (PTSD)(Confirmed) 12/08/11 Active Depression, major, recurrent(Confirmed) Active Substance abuse(Confirmed) Active Diagnosis Diagnosis Type Effective Dates Health Status Clinical Service Informant Depression, major, recurrent Discharge Diagnosis 12/26/19 Substance abuse Discharge Diagnosis 12/26/19 Post-traumatic stress disorder (PTSD) Discharge Diagnosis 12/26/19 Anxiety, generalized Discharge Diagnosis 12/26/19 Chronic hepatitis C Discharge Diagnosis 12/26/19 Procedures Procedure Date Related Diagnosis Body Site Status EKG 1 12/16/19 Completed 1NSR rate 79, LA 126, QRS 94, QT 384, QTC 440 Social History Social History Type Response Smoking Status 10 or more cigarette s (1/2 pack or more)/day in last 30 days; Type: Cigarettes; Tobacco use times per day: 1 PPD; Started at age: 16; entered on: 07/20/19 Sex
--- OUTSIDE RECORDS SUMMARY | 2024-01-27 11:10 | XMS_ITS | Continuity of Care Document ---
Author Organization [facility] ter Address [address] [place] [address]- Care Team Providers Care Ac/Dc Rewinder Name Role Phone Steph Funmi KING Primary Care Physician Encounter [facility] [place] Date(s): 12/08/20 - 12/08/[address] [address]- Discharge Disposition: A-D/C Walkout Attending Physician: Not on Staff, Attending MD Admitting Physician: Not on Staff, Admitting MD Referring Physician: Not on Staff, Referring [...] Vaccine (oldterm) 97 Eze rded 1Result Comment: [employer] Medications Abilify 15 mg oral tablet 15 [...] Refills, Soft Stop, 11/22/20 6:44:00 EDT, [facility]/pharmacy #[id number], Partial fill upon patient request if the prescription is for a schedule II opioid drug., 153, cm, 07/29/20 13:19:00 EST, Height, 52.5, kg, 02/17/20 0:... Start Date: 11/22/20 Status: Ordered prazosin 2 mg oral capsule 1 capsule, By Mouth, Daily at bedtime, office visit needed for furtehr refills, # 30 capsule, 0 Refills, Maintenance, 08/08/20 15:09:00 EST, [facility]/pharmacy #[id number], 153, cm, 07/29/20 13:19:00 EST, [...] 10 film, 0 Refills, Maintenance, 11/22/20 6:44:00 EDT,[id number], Partial fill upon patient request if the prescription is for a schedule II opioid drug. MERLENE [id number], 2 film Sublingual Daily,Inst... Start Date: 11/22/20 [...] Depression, major, recurrent(Confirmed) Active Substance abuse(Confirmed) Active Results Radiology Reports * Exam Date Time Procedure Performing Provider Status 12/08/20 6:45 PM Chest Portable Mariah Greenfield; Auth (Verified) Notes: (Chest Portable) Reason For Exam: Shortness of Breath RESULT: Chest Portable Chest Portable Hx of Present Illness: pt reports my asthma has been acting up and i dont have an inhaler at home repots vague abd discomfort yesterday that has since resolved; Reason: Shortness of Breath; Clinical Question(s): CHF COMPARISON: None. FINDINGS: LINES AND TUBES: None. LUNGS AND PLEURA: Clear lungs. Normal pulmonary vascularity. No pleural effusion. No pneumothorax. HEART, MEDIASTINUM AND ALPHONSO: Heart is normal in size. Normal upper mediastinal and hilar contour. BONES AND SOFT TISSUES: No acute abnormality. IMPRESSION: No acute abnormality. WSN: [id number] Ordering Physician: Emily Wills Dictated By: Ann Askew MD Dictated Date/Time: 12/08/20 6:55 pm Reviewed By: Ann Askew MD Signed By: Ann Askew MD Signed Date/Time: 12/08/20 6:55 pm Transcribed By: TAWANA Transcribed Date/Time: 12/08/20 6:54 pm Vital Signs Most recent to oldest [Reference Range]: 1 Oxygen Saturation [94-100 %] 100 % (12/08/20 5:39 PM) Pulse Rate [55-90 bpm] 112 bpm *H* (12/08/20 5:39 PM) Blood Pressure [90-138/55-84 mm Hg] 112/ 62mm Hg (12/08/20 5:39 PM) Respiratory Rate [16-30 br/min] 20 br/mi n (12/08/20 5:39 PM) Temperature [96.8-100.4 DegF] 98.2 DegF (12/08/20 5:39 PM) Mode of Delivery (Oxygen) Room air (12/08/20 5:39 PM) Temperature Route Oral (12/08/20 5:39 PM) Social History Social History Type Response Smoking Status 10 or more cigarette s (1/2 pack or more)/day in last 30 days; Type: Cigarettes; Tobacco use times per day: 1 PPD; Started at age: 16; entered on: 07/20/19 Sex
--- OUTSIDE RECORDS SUMMARY | 2024-01-27 11:10 | XMS_ITS | Continuity of Care Document ---
Author Organization [facility] Address [address] [place] [address]- Care Team Providers Care Management Trainee Marketing Name Role Phone Steph CHRISTINE, Funmi Forbes Primary Care Physician [place] [facility] [place] Date(s): 08/03/19 - 08/13/19 [facility] Adult [address] [place] [address]- [facility] Attending Physician: Admtr, Ar8 Admitting Physician: Admtr, [...] 08/03/19 9:25:30 EST, Route to Pharmacy Electronically, [id number], [facility]/pharmacy #[id number], 153, cm, 08/03/19 9:01:07 [...]
--- OUTSIDE RECORDS SUMMARY | 2024-01-27 11:10 | XMS_ITS | Continuity of Care Document ---
Author Organization [facility] ter Address [address] [place] [address]- Care Team Providers Care Bunk House Worker Name Role Phone Steph Funmi KING Primary Care Physician [phone] [place] [facility] [place]): [place] 11/22/[address] [address]- Encounter Diagnosis Opiate withdrawal(Final) - 11/22/20 Opiate withdrawal(Final) - 11/22/20 Discharge Disposition: A-D/C Home Attending Physician: Louisa March DO Admitting Physician: Louisa March DO Referring Physician: Not on Staff, Referring MD [...] Vaccine (oldterm) 97 Eze rded 1Result Comment: [employer] Medications Abilify 15 mg oral tablet 15 mg, 1, tablet, By Mouth, Daily, # 30 tablet, Refills 0, Maintenance, 08/03/19 9:31:56 EST Start Date: 08/03/19 Status: Ordered cloNIDine 0.1 mg oral tablet 0.1 mg, 1, tablet, By Mouth, 2 times a day, # 60 tablet, Refills 0, Tot. Refills 0, Maintenance, 08/03/19 9:25:30 EST, Route to Pharmacy Electronically, [facility]/pharmacy #[id number], 153, cm, 08/03/19 9:01:07 EST, Height, 50, [...] 0 Refills, Soft Stop, 11/22/20 6:44:00 EDT, [facility]/pharmacy #[id number], Partial fill upon patient request if the prescription is for a schedule II opioid drug., 153, cm, 07/29/20 13:19:00 EST, Height, 52.5, kg, 02/17/20 0:... Start Date: 11/22/20 Status: Ordered prazosin 2 mg oral capsule 1 capsule, By Mouth, Daily at bedtime, office visit needed for furtehr refills, # 30 capsule, 0 Refills, Maintenance, 08/08/20 15:09:00 EST, [id number], 153, cm, 07/29/20 13:19:00 EST, Height, [...] 10 film, 0 Refills, Maintenance, 11/22/20 6:44:00 EDT,[facility]/pharmacy #[id number], Partial fill upon patient request if the prescription is for a schedule II opioid drug. MERLENE [id number], 2 film Sublingual Daily,Inst... Start Date: 11/22/20 [...] [Reference Range]: 1 Oxygen Saturation [94-100 %] 94 % (11/22/20 5:45 AM) Pulse Rate [55-90 bpm] 95 bpm *H* (11/22/20 5:45 AM) Blood Pressure [90-138/55-84 mm Hg] 139/ 90mm Hg *H* (11/22/20 5:45 AM) Respiratory Rate [16-30 br/min] 20 br/mi n (11/22/20 5:45 AM) Temperature [96.8-100.4 DegF] 98.0 DegF (11/22/20 5:45 AM) Mode of Delivery (Oxygen) Room air (11/22/20 5:45 AM) Temperature Route Oral (11/22/20 5:45 AM) Social History Social History Type Response Smoking Status 10 or more cigarette s (1/2 pack or more)/day in last 30 days; Type: Cigarettes; Tobacco use times per day: 1 PPD; Started at age: 16; entered on: 07/20/19 Sex
== END 2024-01-26 10:03 | disposition left against medical advice (07) ==
LOC: HO.ED 09:50
PROVIDERS: Emergency Provider Emergency Medicine
DX: R11.2 Nausea with vomiting, unspecified (principal)

== ENCOUNTER 2024-01-29 11:52 | Emergency (ER) | payer OTHER, SELFPAY ==
--- NOTE | ~2024-01-29 | US_ITS ---
EXAMINATION: US OBSTETRICAL ULTRASOUND CLINICAL INFORMATION: Abdominal cramping, COMPARISON: None available. LMP: Unknown. TECHNIQUE: Ultrasound of the maternal pelvis is performed using transabdominal transducer. M-mode Doppler is also performed. FINDINGS: There is a single intrauterine gestational sac with visible yolk sac, embryo/fetus, and cardiac activity. There is no significant subchorionic hemorrhage or hematoma. HR: 174 beats per minute. CRL (crown rump length): 1.75 cm (8 weeks and 2 days +/- 4 days). JOVON (estimated date of delivery): 09/07/2024 +/- 4 days. MATERNAL ADNEXA: The right maternal ovary measures 3.4 x 1.7 x 2.0 cm. Right ovary appears sonographically normal The left maternal ovary measures 4.4 x 3.1 x 3.2 cm. Left ovary appears sonographically normal There is no significant maternal adnexal mass. No maternal pelvic ascites. US/US OB <= 14 weeks fetus IMPRESSION: 1. Single intrauterine gestation with ultrasound gestational age of 8 weeks and 2 days +/- 4 days. 2. Estimated date of delivery is 09/07/2024 +/- 4 days. 3. No maternal adnexal mass or pelvic ascites.
[2024-01-29 12:28] VITALS: BP 116/77; PULSE 108; RESP 16; TEMP 36.9; O2SAT 100; BMI 19.5
--- NOTE | 2024-01-29 12:34 | ED_ITS ---
HPI - General Adult General Chief complaint: Abdominal Pain Stated complaint: Vomiting Time Seen by Provider: 01/29/24 20:50 Source: patient Mode of arrival: ambulatory Limitations: no limitations History of Present Illness ED Provider: Dr. Angel Sainz HPI narrative: 28-year-old female 9 weeks , opiate use disorder-IV drug use, cocaine use disorder, major depressive disorder, GERD, asthma, seizures who presents emergency department for evaluation of nausea, vomiting and withdrawing from methadone and heroin. The patient is here with her grandmother. The grandmother told me that the patient is homeless and showed up on her door yesterday. The patient had been in a rehab program for 1 month and was getting methadone 55 mg daily. When she left rehab she was supposed to follow-up with the [facility] methadone clinic however she states that she did not get into the clinic and has been using heroin. She states she last used heroin to try to help with her withdrawal symptoms. Patient states that the past 2 days she has had diffuse abdominal pain. She has had nausea vomiting is only been able to hold down small amounts of fluid. She states she is withdrawing from opiates. The patient is refusing IV insertion since she states that it is too difficult and she will not let the nurses try to put an IV. Related Data Home Medications ?Medication ?Instructions ?Recorded ?Confirmed prazosin 2 mg capsule 2 mg PO BEDTIME 04/11/23 07/02/23 methadone 10 mg/mL oral 40 mg PO DAILY 04/12/23 07/02/23 concentrate (Methadone Intensol) Previous Rx's ?Medication ?Instructions ?Recorded cephalexin 500 mg capsule 500 mg PO Q6H 7 days #28 caps 07/02/23 doxycycline hyclate 100 mg tablet 100 mg PO BID 7 days #14 tabs 07/02/23 promethazine 25 mg tablet 25 mg PO Q6H PRN nausea and 01/29/24 vomiting #20 tabs Allergies Allergy/AdvReac Type Severity Reaction Status Date / Time orange [ORANGES] Allergy Intermediate HIVES Verified 01/29/24 12:29 Sulfa (Sulfonamide Allergy Rash Verified 01/29/24 12:29 Antibiotics) seafood AdvReac Anaphylaxis Verified 01/29/24 12:29 Review of Systems 2 Review of Systems: Yes all other systems are reviewed and are negative PMFSH Past Medical History PMFSH Narrative: Social history: The patient is homeless. She is currently staying with her grandmother. She does smoke cigarettes. She denies alcohol use. She does admit to using heroin since she states she was withdrawing from methadone. Medical History Back pain Gestational hypertension GERD (gastroesophageal reflux disease) Asthma Obesity Seizure Substance abuse Asthma PTSD (post-traumatic stress disorder) Depression Bipolar affective Anxiety Surgical History Hx of hand surgery Social History Social History Household Members: Significant Other Household Members Other:: fiance Housing: Homeless Housing Other:: I live with my fiance. We don't have an apartment. I am not homeless Do you presently have visiting nurse or other home services: No Alcohol intake: never Patient Tobacco Use Status: Tobacco use Unknown Tobacco use type: Cigarette Cigarette Packs Per Day: 1 Cigarettes Per Day: 20.0 Years Smoked: 11 Smoked in Last 30 Days: Yes Second Hand Smoke Exposure: Yes Use of substances other than those prescribed or required for medical reasons: Yes Substance Use Type: Heroin Advance Directives: No Advance Directives Information Provided: No Do you have a plan to hurt others: No Plan Patient : No service: No Sexual orientation: Don't Know Physical Exam ED Vital Signs: Vital Signs - 24 hr 01/29/24 12:28 01/29/24 19:33 01/29/24 20:00 Temperature 98.4 F 98.7 F 97.7 F Pulse Rate 108 H 72 77 Respiratory Rate 16 16 Blood Pressure 116/77 123/84 108/69 Pulse Oximetry 100 100 98 Oxygen Delivery Method Room Air Room Air Room Air 01/29/24 22:00 01/29/24 23:27 Temperature 98.1 F 98.1 F Pulse Rate 67 67 Respiratory Rate 18 Blood Pressure 130/64 130/64 Pulse Oximetry 99 99 Oxygen Delivery Method Room Air Room Air BMI result Body Mass Index 19.5 Vital signs revealed an elevated pulse of 108 otherwise unremarkable Exam: General: Awake, alert in no distress Head: Normocephalic, atraumatic EENT: PERRL, Lids normal, sclera normal, conjunctiva normal, nose normal , ears normal, throat without erythema or exudates Neck: Supple, no adenopathy Lung: breath sounds symmetric, no wheezing, rales or rhonchi Chest: symmetric movement, nontender Heart: regular rate and rhythm, normal S1, S2 no murmurs or rubs Abdomen: soft, mild diffuse tenderness, no rebound, no voluntary or involuntary guarding, normoactive bowel sounds Back: no vertebral tenderness, no CVAT Extremities: no deformities, moves all extremities symmetrically Psych: Pleasant, cooperative Course Course Course Narrative: RME: Done by PUSHPA Brown. 28 yold female who is 9 weeks presents to the ED lower abdominal pain, dark urine, and vomitting. patient states also last methadone dose was las tuesday at [facility]. patient needs dose. Labs and US pelvic ordered Medications Administered Discontinued Medications Generic Name Dose Route Start Last Admin Trade Name Freq PRN Reason Stop Dose Admin Methadone HCl 55 mg 01/29/24 21:05 01/29/24 21:33 Methadone Hcl 20 Mg/2 Ml Oral.Conc PO 01/29/24 21:06 Not Given ONCE ONE Methadone HCl 30 mg 01/29/24 21:05 01/29/24 21:32 Methadone Hcl 20 Mg/2 Ml Oral.Conc PO 01/29/24 21:06 30 mg ONCE ONE Administration Promethazine HCl 25 mg 01/29/24 21:05 01/29/24 21:32 Promethazine Hcl 25 Mg Tablet PO 01/29/24 21:06 25 mg ONCE ONE Administration Medical Decision Making Medical Decision Making [facility] Narrative: 28-year-old female 9 weeks , opiate use disorder-IV drug use, cocaine use disorder, major depressive disorder, GERD, asthma, seizures who presents emergency department for evaluation of nausea, vomiting and withdrawing from methadone and heroin. Patient was in a rehab center for 1 month and was being treated with methadone 55 mg daily. When she left the rehab clinic she did not get in to the [facility] methadone clinic and states she has been using heroin last use 3 days prior. She is complaining of diffuse abdominal pain, nausea vomiting he has had very little food fluid intake for the last 48 hours. Vital signs were normal except for an elevated heart rate of 108. The patient's abdominal exam revealed mild to moderate diffuse tenderness with no localizing tenderness. Differential diagnosis: ?Includes but is not limited to opiate withdrawal, viral syndrome, vomiting related to , dehydration, volume depletion, opiate use, electrolyte abnormalities, anemia Following evaluation was ordered: CBC, CMP, lipase, PT/INR, PTT, urinalysis, urine drug screen, quantitative beta-hCG, ultrasound OB pelvic/transvaginal less than 14 fetus Patient was initially treated with the following: Methadone 55 mg orally, Phenergan 25 mg orally Course: My interpretation patient's laboratory evaluation is as follows: CBC was normal. Potassium low 3.0. BUN and creatinine were normal 8 and 0.6. Glucose elevated 171. Coags were normal. Quantitative beta-hCG was 151,880. Patient's OB ultrasound did reveal a single intrauterine at 8 weeks 2 days +/-4 days with EDC of 09/07/2024. The patient is refusing IV attempt. I did tell her that we could try ultrasound-guided IVs or we could also try a external jugular IV but she still refused. Patient was given methadone 55 mg orally, Phenergan 25 mg orally and we will try to rehydrate her orally. 22:47 The patient is feeling better after the above treatment. She was able to drink jeny pricilla and eat crackers. The patient will be discharged home. She is advised to contact the [facility] methadone clinic tomorrow so she can continue receiving methadone. Patient was also advised to contact [facility] to get care-she is a high-risk and her baby will most likely need care for withdrawal. Patient was prescribed Phenergan 25 mg, 1 pill every 6 hours as needed for nausea and vomiting. Admission/Observation Consideration of admission/observation: Escalation of care including admission/observation considered Lab Data MDM Lab Attestation statement: I reviewed the patient's lab results. 01/29/24 12:51 01/29/24 12:51 Labs: Lab Results 01/29/24 Range/Units 12:51 WBC 8.2 (4.8-10.8) X10*3/uL RBC 4.54 D (4.20-5.50) X10*6/uL Hgb 14.6 D (12.0-16.0) g/dl Hct 40.5 (37.0-47.0) % MCV 89.2 (80.0-98.0) fL MCH 32.2 (27.0-33.0) pg MCHC 36.0 H (31.0-35.0) g/dl RDW 13.2 (11.0-16.0) % Plt Count 261 (160-400) X10*3/uL MPV 9.6 (9.4-12.3) fL Immature Gran % (Auto) 0.4 (0.0-0.4) % Neut % (Auto) 74.1 H (45-73) % Lymph % (Auto) 15.7 L (20-40) % [place] % (Auto) 9.1 (2-11) % Eos % (Auto) 0.5 (0-4) % Baso % (Auto) 0.2 (0-2) % Lymph # (Auto) 1.3 (1.2-4.9) X10*3/uL [place] # (Auto) 0.8 (0.1-1.2) X10*3/uL Eos # (Auto) 0.0 (0.0-0.4) X10*3/uL Baso # (Auto) 0.0 (0.0-0.2) X10*3/uL Abs Immat Gran (auto) 0.03 (0.00-0.03) X10*3/uL Absolute Neuts (auto) 6.1 (2.0-8.3) x10*3/uL Absolute Nucleated RBC 0.000 (0.0-0.012) X10*3/uL Nucleated RBC % (auto) 0.0 (0.0-0.2) /100WBC PT 13.1 (11.1-13.3) SEC INR 1.1 (0.9-1.1) APTT 24.3 L (26.0-36.8) SEC Sodium 139 (135-145) mmol/L Potassium 3.0 L (3.3-5.1) mmol/L Chloride 106 (96-108) mmol/L Carbon Dioxide 25 (22-29) mmol/L Anion Gap 11 L (12-20) BUN 8 L (9-16) mg/dL Creatinine 0.61 (0.5-1.4) mg/dL Estim Creat Clear Calc 100.0 Estimated GFR > 60 Random Glucose 171 H (60-115) mg/dL Calcium 9.8 (8.4-10.2) mg/dL Total Bilirubin 0.5 (0.0-1.0) mg/dL AST 21 (5-31) U/L ALT 19 (0-31) U/L Alkaline Phosphatase 62 (39-117) U/L Total Protein 7.2 (6.5-8.0) g/dL Albumin 4.0 (3.5-5.0) g/dL Lipase 18 (8-78) U/L Beta HCG, Quant 899850 mIU/mL Radiology Impression Radiologist Impression: US OB <= 14 weeks fetus IMPRESSION: 1. Single intrauterine gestation with ultrasound gestational age of 8 weeks and 2 days +/- 4 days. 2. Estimated date of delivery is 09/07/2024 +/- 4 days. 3. No maternal adnexal mass or pelvic ascites. Dictated By: Ford Hernandez MD Independent Historian Clinical information obtained from an independent historian. History obtained from or confirmed by: Other (Grandmother) Prescription Management I considered prescription management with: Other (Antiemetics) Chronic Conditions Patient?s care impacted by: Other (Opiate injection use disorder) Discharge Plan Discharge Clinical Impression: First trimester , Intrauterine , Nausea & vomiting, Opiate use Patient Disposition: Home, Self-Care Instructions: (ED) Additional Instructions: Your blood work was unremarkable. Your quantitative beta-hCG test was 151,880 which correlates with your dates. Your ultrasound revealed a single, intrauterine measuring 8 weeks and 2 days +/-4 days. Based on this ultrasound your estimated date of delivery is 09/07/2024. The radiology ultrasound impression is below, show this to your OBGYN providers. Take Phenergan (promethazine) 25 mg pills, 1 pill every 6 hours as needed for nausea and vomiting. You received methadone 30 mg orally here in the emergency department at 21:22 hours, Because of your heroin/opiate use disorder this is a high-risk and you will need your care from [facility]. Call them tomorrow morning to try to get care started as soon as possible. For the next 24 hours, stay on a ZARINA diet (bananas, rice, applesauce, tea and toast). Please return to the emergency department if your symptoms get worse or if you develop any symptoms that are concerning to you. US OB <= 14 weeks fetus IMPRESSION: 1. Single intrauterine gestation with ultrasound gestational age of 8 weeks and 2 days +/- 4 days. 2. Estimated date of delivery is 09/07/2024 +/- 4 days. 3. No maternal adnexal mass or pelvic ascites. Dictated By: Ford Hernandez MD Prescriptions: New promethazine 25 mg tablet 25 mg PO Q6H PRN (Reason: nausea and vomiting) Qty: 20 0RF No Action prazosin 2 mg capsule 2 mg PO BEDTIME methadone [Methadone Intensol] 10 mg/mL Concentrate 40 mg PO DAILY cephalexin 500 mg capsule 500 mg PO Q6H 7 Days Qty: 28 0RF doxycycline hyclate 100 mg tablet 100 mg PO BID 7 Days Qty: 14 0RF Interventions: ED Discharge Assessment Last Done: 01/29/24 23:27 Discharge Date/Time: 01/29/24 23:29 Print Language: Swedish
[2024-01-29 12:57] LABS: MANUAL DIFF FLAG NO
[2024-01-29 12:58] LABS: Basophils Percent Auto 0.2 % (0-2); Eosinophils Percent Auto 0.5 % (0-4); Hematocrit 40.5 % (37.0-47.0); Hemoglobin 14.6 g/dl (12.0-16.0); Imm Gran Abs Auto 0.03 X10*3/uL (0.00-0.03); Imm Gran Pct Auto 0.4 % (0.0-0.4); Lymphocytes Absolute Auto 1.3 X10*3/uL (1.2-4.9); Lymphocytes Percent Auto 15.7 % (20-40); Mean Corpuscular Hemoglobin 32.2 pg (27.0-33.0); Mean Corpuscular Volume 89.2 fL (80.0-98.0); Mean Platelet Volume 9.6 fL (9.4-12.3); Monocytes Absolute Auto 0.8 X10*3/uL (0.1-1.2); Monocytes Percent Auto 9.1 % (2-11); Neutrophils Absolute Auto 6.1 x10*3/uL (2.0-8.3); Neutrophils Percent Auto 74.1 % (45-73); Platelet Count 261 X10*3/uL (160-400); Red Blood Count 4.54 X10*6/uL (4.20-5.50); Red Cell Distribution Width 13.2 % (11.0-16.0); White Blood Count 8.2 X10*3/uL (4.8-10.8)
[2024-01-29 13:03] LABS: INTERNATIONAL NORM RATIO 1.1 (0.9-1.1); Prothrombin Time 13.1 SEC (11.1-13.3)
[2024-01-29 13:06] LABS: Partial Thromboplastin Time 24.3 SEC (26.0-36.8)
[2024-01-29 13:33] LABS: Alanine Aminotransferase 19 U/L (0-31); Alkaline Phosphatase 62 U/L (39-117); Anion Gap 11 (12-20); Aspartate Amino Transferase 21 U/L (5-31); Bilirubin Total 0.5 mg/dL (0.0-1.0); Blood Urea Nitrogen 8 mg/dL (9-16); Calcium 9.8 mg/dL (8.4-10.2); Carbon Dioxide 25 mmol/L (22-29); Chloride 106 mmol/L (96-108); Estimated Glomerular Filt Rate > 60; Glucose Random 171 mg/dL (60-115); Lipase 18 U/L (8-78); Sodium 139 mmol/L (135-145); Total Protein 7.2 g/dL (6.5-8.0)
[2024-01-29 19:33] VITALS: BP 123/84; PULSE 72; RESP 16; TEMP 37.1; O2SAT 100
[2024-01-29 20:00] VITALS: BP 108/69; PULSE 77; TEMP 36.5; O2SAT 98
[2024-01-29] MEDS: Promethazine HCL 25 MG TABLET PO (21:32)
[2024-01-29] MEDS: methADONE HCl 20 MG/2 ML ORAL.CONC 30 MG PO (21:32)
[2024-01-29 22:00] VITALS: BP 130/64; PULSE 67; TEMP 36.7; O2SAT 99
--- NOTE | 2024-01-29 22:00 | PC.NURSE ---
Pt given PO liquids and crackers. Pt tolerated.
[2024-01-29 23:27] VITALS: BP 130/64; PULSE 67; RESP 18; TEMP 36.7; O2SAT 99
== END 2024-01-29 23:29 | disposition home or self-care (01) ==
PROVIDERS: Physician Assistant; Emergency Provider Emergency Medicine Emergency Medical Services
DX: O21.9 Vomiting of pregnancy, unspecified (principal); O99.321 Drug use complicating pregnancy, first trimester; F11.20 Opioid dependence, uncomplicated; O99.511 Diseases of the respiratory system complicating pregnancy, first trimester; J45.909 Unspecified asthma, uncomplicated; Z3A.09 9 weeks gestation of pregnancy
CPT/HCPCS: 36415; 76801; 80053; 83690; 84702; 85025; 85610; 85730; 99284

== ENCOUNTER 2024-02-19 17:36 | Emergency (ER) | payer OTHER, SELFPAY ==
[2024-02-19 17:43] VITALS: BMI 17.6
[2024-02-19] MEDS: diphenhydrAMINE HCL 50 MG/ML VIAL IM (17:49)
[2024-02-19] MEDS: LORazepam 2 MG/ML VIAL IM ×2 (17:50→18:03)
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
[2024-02-19 18:32] VITALS: PULSE 88; RESP 15; TEMP 36.6; O2SAT 97
--- OUTSIDE RECORDS SUMMARY | 2024-02-19 18:40 | XMS_ITS | Continuity of Care Document ---
[facility] Address [address], [address] [place] [address]- Care Team Providers Care Mr Teacher Name Role Phone Not on Staff, PCP Primary Care Physician Unavail able Encounter [facility] Date(s): 01/13/24 - 02/12/24 [facility] Ravind[facility] [address] [place] [address]- Allergies, Adverse Reactions, Alerts Substance Reaction Severity Status shellfish Active Seafood Active Oranges Active Immunizations Given and Recorded Vaccine Date Status Refusal Reason SARS-CoV-2(COVID-19)mRNA-LNP vac([id number]) 08/05/23 Recorded influenza virus vaccine, inactivated 07/27/23 Eze rded influenza virus vaccine, inactivated 04/29/17 Eze rded SARS-CoV-2 mRNA ([id number]) vax 08/10/22 Recorded SARS-CoV-2 (COVID-19) mRNA BNT-162b2 [...] Vaccine (oldterm) 97 Eze rded 1Result Comment: [employer] Medications Abilify 15 mg oral tablet 15 [...] 0 Refills, Soft Stop, 11/22/20 6:44:00 EDT, [facility]/pharmacy #[id number], Partial fill upon patient [...] Team Personnel Name: Grady Villagomez RN Position: [facility] RN Member Role: Primary Care Nurse Name: Greg Castro RN Position: S RN Member Role: Primary Care Nurse Name: Not on Staff, PCP Position: [facility] Physician (General Medicine) Member Role: PCP Name: Palmira Gutierrez RN Position: S RN Member Role: Primary Care Nurse Name: Rand Tomas LPN Position: [facility] RN Member Role: Primary Care Nurse Name: Lalitha Lemus RN Position: S RN Member Role: Primary Care Nurse Care Team Related Persons Name: JOHNNY GARCIA Address: home [address] [place] [address] Name: SELENA LAUGHLIN Address: home [address] [place] [address] Name: ERICKA HORNER Address: home [address] [place] [address]
[2024-02-19 18:42] VITALS: BP 93/33; PULSE 85; RESP 14; TEMP 36.6; O2SAT 96
--- NOTE | 2024-02-19 18:50 | PC.NURSE ---
patient now resting comfortably on stretcher, respirations even and unlabored, dignity maintained, BP able to be obtained on LLE, BP soft at this time, MD made aware, chemical restraint order completed at this time. report given to onchowie DELGADILLO
[2024-02-19 20:00] VITALS: BP 108/50; PULSE 99; RESP 18; TEMP 36.3; O2SAT 100
--- NOTE | 2024-02-19 21:08 | PC.NURSE ---
labs attempted for a second time, pt refused.
--- NOTE | 2024-02-19 21:10 | MHC.EDTECH ---
This Tech attempted Bloodwork for a second time pt refused. RN is at bedside. plan of care ongoing.
--- NOTE | 2024-02-19 22:51 | PC.NURSE ---
notified provider regarding pt refusal to complete labs.
[2024-02-19 23:57] VITALS: BP 118/60; PULSE 80; RESP 18; TEMP 36.8; O2SAT 100
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
[2024-02-20 03:45] VITALS: BP 107/45; PULSE 77; RESP 17; TEMP 37.2; O2SAT 98
--- NOTE | 2024-02-20 04:12 | PC.NURSE ---
pt awake, alert, requesting food. This RN agreed to give pt food as long as she is agreeable to blood work. pt accepts. pt still has involuntary movements/twitches, crying at bedside about how she does not want to spend her birthday in the hospital . pt sitting up eating, labs being attempted at this time.
[2024-02-20 04:41] LABS: Alanine Aminotransferase 37 U/L (0-31); Albumin Level 3.6 g/dL (3.5-5.0); Alkaline Phosphatase 53 U/L (39-117); Anion Gap 13 (12-20); Aspartate Amino Transferase 67 U/L (5-31); Bilirubin Direct 0.3 mg/dL (0.0-0.5); Bilirubin Total 0.8 mg/dL (0.0-1.0); Blood Urea Nitrogen 9 mg/dL (9-16); Carbon Dioxide 21 mmol/L (22-29); Chloride 105 mmol/L (96-108); Creatinine Clr Calc Pharmacy 87.8; Estimated Glomerular Filt Rate > 60; Ethanol < 10 mg/dL; Glucose Random 67 mg/dL (60-115); Magnesium 2.2 mg/dL (1.6-2.6); Potassium 3.9 mmol/L (3.3-5.1); Sodium 135 mmol/L (135-145); Total Protein 6.8 g/dL (6.5-8.0)
--- NOTE | 2024-02-20 05:06 | PC.NURSE ---
only able to obtain one lab tube. pt unable to sit still. MD aracely connolly
[2024-02-20 05:45] LABS: HCG Quantitative 42834 mIU/mL
[2024-02-20 06:22] VITALS: BP 128/54; PULSE 82; TEMP 36.6; O2SAT 97
--- NOTE | 2024-02-20 10:19 | MHC.RECOVRN ---
Met with pt in ED16 to check in and provide support. Pt familiar with t/w from previous consults. Pt sitting in bed, eyes closed, wakes to voice, engages in conversation. Pt reports she has been using cocaine, INH, unknown amount. Denies other substances. Pt reports she is currently on methadone through [facility] x a few months. Pt reports current dose is 60 mg and she feels comfortable with that dose. Pt reports last opioid use a couple months ago. In regards to , pt reports she has not seen workforce consultant because she plans to terminate. Pt reports she is currently living with her grandparents and it is safe for her to return. Discussed recovery support options, including ATS, pt declines referrals at this time. Pt plans to dc home. Pt denies questions or concerns for t/w.
[2024-02-20 12:00] VITALS: BP 108/53; PULSE 83; RESP 14; TEMP 37.2; O2SAT 95
--- NOTE | 2024-02-20 12:33 | HE.PHANOTE ---
METHADONE Dose: 60mg, last dosed 02/19/2024 @0707 per Robyn at [facility].
[2024-02-20] MEDS: methADONE HCl 20 MG/2 ML ORAL.CONC 60 MG PO (13:10)
[2024-02-20 13:29] VITALS: BP 108/53; PULSE 83; RESP 14; TEMP 37.2; O2SAT 95
== END 2024-02-20 13:29 | disposition home or self-care (01) ==
PROVIDERS: Emergency Provider Emergency Medicine
DX: F14.19 Cocaine abuse with unspecified cocaine-induced disorder (principal); F11.10 Opioid abuse, uncomplicated; Z79.899 Other long term (current) drug therapy; Z71.51 Drug abuse counseling and surveillance of drug abuser
CPT/HCPCS: 36415; 80048; 80076; 80307; 83735; 84702; 96372; 99284; 99285; J1200; J2060

== ENCOUNTER 2024-02-20 14:14 | Emergency (ER) | payer OTHER, SELFPAY ==
[2024-02-20 14:22] VITALS: BP 118/57; PULSE 99; RESP 18; TEMP 36.6; O2SAT 94; BMI 17.6
--- NOTE | 2024-02-20 14:23 | ED_ITS ---
HPI - General Adult General Chief complaint: ETOH/Substance Use Stated complaint: unknown Time Seen by Provider: 02/20/24 14:29 Related Data Home Medications ?Medication ?Instructions ?Recorded ?Confirmed prazosin 2 mg capsule 2 mg PO BEDTIME 04/11/23 07/02/23 methadone 10 mg/mL oral 40 mg PO DAILY 04/12/23 07/02/23 concentrate (Methadone Intensol) Previous Rx's ?Medication ?Instructions ?Recorded cephalexin 500 mg capsule 500 mg PO Q6H 7 days #28 caps 07/02/23 doxycycline hyclate 100 mg tablet 100 mg PO BID 7 days #14 tabs 07/02/23 promethazine 25 mg tablet 25 mg PO Q6H PRN nausea and 01/29/24 vomiting #20 tabs Allergies Allergy/AdvReac Type Severity Reaction Status Date / Time orange [ORANGES] Allergy Intermediate HIVES Verified 02/20/24 14:24 Sulfa (Sulfonamide Allergy Rash Verified 02/20/24 14:24 Antibiotics) seafood AdvReac Anaphylaxis Verified 02/20/24 14:24 PMFSH Past Medical History Medical History Back pain Gestational hypertension GERD (gastroesophageal reflux disease) Asthma Obesity Seizure Substance abuse Asthma PTSD (post-traumatic stress disorder) Depression Bipolar affective Anxiety Surgical History Hx of hand surgery Social History Social History Household Members: Significant Other Household Members Other:: fiance Housing: Homeless Housing Other:: I live with my fiance. We don't have an apartment. I am not homeless Do you presently have visiting nurse or other home services: No Unable to assess alcohol history related to: Unable to respond Alcohol intake: never Patient Tobacco Use Status: Tobacco use Unknown Tobacco use type: Cigarette Cigarette Packs Per Day: 1 Cigarettes Per Day: 20.0 Years Smoked: 11 Second Hand Smoke Exposure: Yes Substance Use Type: Amphetamines, Crack/Cocaine, Heroin and Opiates Advance Directives: No Advance Directives Information Provided: Yes Do you have a plan to hurt others: No Plan service: No Sexual orientation: Don't Know Physical Exam ED Vital Signs: Vital Signs - 24 hr 02/20/24 14:22 Temperature 97.8 F Pulse Rate 99 Respiratory Rate 18 Blood Pressure 118/57 L Pulse Oximetry 94 Oxygen Delivery Method Room Air BMI result Body Mass Index 17.6 Course Course Course Narrative: RME performed by Britney Lucas PA-C. Patient is a 29 year old assigned female at presenting to the emergency department acting erratically. Patient refuses to answer any questions. Patient is clearly under the influence of some sort of substance. Detailed physical exam and review of systems are deferred to the audiovisual tech. Labs ordered. Patient brought to the back. Medications Administered Discontinued Medications Generic Name Dose Route Start Last Admin Trade Name Freq PRN Reason Stop Dose Admin Diphenhydramine HCl 50 mg 02/20/24 14:34 02/20/24 15:25 Diphenhydramine Hcl 25 Mg Capsule PO 02/20/24 14:35 50 mg ONCE ONE Administration Olanzapine 10 mg 02/20/24 14:34 02/20/24 15:25 Olanzapine 10 Mg Tablet PO 02/20/24 14:35 10 mg ONCE ONE Administration Discharge Plan Discharge Prescriptions: No Action prazosin 2 mg capsule 2 mg PO BEDTIME methadone [Methadone Intensol] 10 mg/mL Concentrate 40 mg PO DAILY cephalexin 500 mg capsule 500 mg PO Q6H 7 Days Qty: 28 0RF doxycycline hyclate 100 mg tablet 100 mg PO BID 7 Days Qty: 14 0RF promethazine 25 mg tablet 25 mg PO Q6H PRN (Reason: nausea and vomiting) Qty: 20 0RF Print Language: Romanian
--- NOTE | 2024-02-20 14:30 | ED_ITS ---
HPI - Psych General Chief Complaint: ETOH/Substance Use Stated Complaint: unknown Time Seen by Provider: 02/20/24 14:29 Source: patient Mode of arrival: ambulatory Limitations: other (acute psychosis ) History of Present Illness ED Provider: Linda SANFORD HPI Narrative: This is a 29-year-old female history of polysubstance abuse, cocaine use disorder, depression, obesity, depression, GERD, asthma currently (no care) presenting w/ erratic behavior found outside the hospital. Patient was just discharged from this facility at around 1330. Patient is unable to sit still and give me an accurate ROS or history. Keeps getting up during history taking and clapping and yelling. Not SI or HI. Denies drugs, alcohol and tobacco. Related Data Home Medications ?Medication ?Instructions ?Recorded ?Confirmed methadone 10 mg/mL oral 60 mg PO DAILY 04/12/23 02/21/24 concentrate (Methadone Intensol) vits no.130-ferrous fum 1 tab PO QAM 02/21/24 02/21/24 27 mg iron-folic acid 800 mcg tablet ( Vitamin) Allergies Allergy/AdvReac Type Severity Reaction Status Date / Time orange [ORANGES] Allergy Intermediate HIVES Verified 02/20/24 14:24 Sulfa (Sulfonamide Allergy Rash Verified 02/20/24 14:24 Antibiotics) seafood AdvReac Anaphylaxis Verified 02/20/24 14:24 Review of Systems Review of Systems: Yes all other systems are reviewed and are negative PMFSH Past Medical History Attestation statement: The following information was validated with the patient. Source: old records reviewed and nursing notes reviewed Medical History Back pain Gestational hypertension GERD (gastroesophageal reflux disease) Asthma Obesity Seizure Substance abuse Asthma PTSD (post-traumatic stress disorder) Depression Bipolar affective Anxiety Surgical History Hx of hand surgery Social History Social History Household Members: Significant Other Household Members Other:: fiance Housing: Homeless Housing Other:: I live with my fiance. We don't have an apartment. I am not homeless Do you presently have visiting nurse or other home services: No Unable to assess alcohol history related to: Refusing to respond Alcohol intake: never Patient Tobacco Use Status: Tobacco use Unknown Tobacco use type: Cigarette Cigarette Packs Per Day: 1 Cigarettes Per Day: 20.0 Years Smoked: 11 Second Hand Smoke Exposure: Yes Use of substances other than those prescribed or required for medical reasons: Refusing to respond Substance Use Type: Amphetamines, Crack/Cocaine, Heroin and Opiates Advance Directives: No Advance Directives Information Provided: Yes Do you have a plan to hurt others: No Plan service: No Sexual orientation: Don't Know Physical Exam Vital Signs: Vital Signs: Last Vital Signs Temp 98.4 F 02/21/24 06:02 Pulse 63 02/21/24 06:02 Resp 18 02/20/24 22:00 BP 111/42 L 02/21/24 06:02 Pulse Ox 97 02/21/24 06:02 O2 Del Method Room Air 02/21/24 06:02 BMI result Body Mass Index 17.6 vss Appearance: Alert.? Oriented X3.? No acute distress.? Unable to sit still. Pacing around. Head: Normocephalic, atraumatic, no step-offs or deformities Eyes: Pupils equal, round and reactive to light.? ENT: Pharynx normal.? Neck: Normal inspection.? Neck supple.? CVS: Normal heart rate and rhythm.? Pulses normal.? Respiratory: No respiratory distress.? Breath sounds normal.? Abdomen: Soft and nontender.? Skin: Skin warm and dry.? Normal skin color.? Normal skin turgor.? Extremities: No lower extremity edema.? No calf ttp. 5/5 strength to bilateral upper and lower extremities Neuro: Oriented X 3.? No motor deficit.? No sensory deficit. CN 2-12 intact Course Reevaluation(s) Reevaluation #1: You note, patient had a OB ultrasound on 01/29/2024 that showed a single intrauterine gestation with ultrasound gestational age of 8 weeks and 2 days +/- 4 days, with an estimated delivery date of 09/07/2024 +/-4 days. Time: 14:39 Reevaluation #2: Mom called trying to do a section 35 tomorrow morning Labs pending, Section 12 filled out by attending Sign out to [facility] Time: 16:16 Reevaluation #3: 02/21/24 Physician observation continued. VS stable, no acute events overnight pending possible S35 needs CARE team re-eval as well. will discuss further input. 906am. Additional Reevaluation(s): observation care revealed that the patient does meet psychiatric necessity for hospitalization. final disposition discussed with the patient. The patient completed observation care at 243pm. Total time in observation care was 22 hours. cleared by CARE team who notified mom who is working on S35 [place] 244pm 02/21/24 Medications Administered Discontinued Medications Generic Name Dose Route Start Last Admin Trade Name Winston PRN Reason Stop Dose Admin Diphenhydramine HCl 50 mg 02/20/24 14:34 02/20/24 15:25 Diphenhydramine Hcl 25 Mg Capsule PO 02/20/24 14:35 50 mg ONCE ONE Administration Olanzapine 10 mg 02/20/24 14:34 02/20/24 15:25 Olanzapine 10 Mg Tablet PO 02/20/24 14:35 10 mg ONCE ONE Administration Medical Decision Making Medical Decision Making [facility] Narrative: 1435 29 year old female presents w/ erratic behavior was just dc from this ED ( had a very similar presentation) PE patient cant sit still Likely polysubstance. Unlikely intracranial hemorrhage, stroke, meningitis, encephalitis. Unlikely metabolic derangements. No signs of trauma to head, neck, chest, abdomen or pelvis. Plan labs, urine. Differential Diagnosis Differential Diagnoses: The differential diagnosis associated with the presentation includes Likely polysubstance. Unlikely intracranial hemorrhage, stroke, meningitis, encephalitis. Unlikely metabolic derangements. No signs of trauma to head, neck, chest, abdomen or pelvis. Admission/Observation Consideration of admission/observation: Escalation of care including admission/observation considered Possible Lab Data [facility] Lab Attestation statement: I reviewed the patient's lab results. Labs: Lab Results 02/20/24 02/21/24 Range/Units 16:14 02:10 Urine Color Yellow Urine Appearance Clear Urine pH 6.5 (5.0-9.0) Ur Specific [place] 1.015 (1.005-1.025) Urine Protein Negative (Neg-Trace) mg/dL Urine Glucose (UA) Negative (Negative) mg/dL Urine Ketones Negative (Negative) mg/dL Urine Blood Negative (Negative) Urine Nitrite Negative (Negative) Ur Leukocyte Esterase Trace H (Negative) Urine RBC 0-2 (0-2) /HPF Urine WBC 6-10 H (0-5) /HPF Ur Squamous Epith Cells 11-20 (0-2) /HPF Urine Bacteria 1+ (None Seen) Hyaline Casts 0-2 (0-2) /LPF Urine Test POSITIVE H (NEGATIVE) Urine Opiates Screen POSITIVE H (Not Detect) Ur Buprenorphine Scrn Not Detected (Not Detect) ng/mL Ur Oxycodone Screen Not Detected (Not Detect) ng/mL Urine Methadone Screen Positive H (Not Detect) ng/mL Urine Fentanyl Screen POSITIVE H (Not Detect) Ur Barbiturates Screen Not Detected (Not Detect) Ur Phencyclidine Scrn Not Detected (Not Detect) Ur Amphetamines Screen Not Detected (Not Detect) U Benzodiazepines Scrn Not Detected (Not Detect) Urine Cocaine Screen POSITIVE H (Not Detect) U Marijuana (THC) Screen POSITIVE H (Not Detect) COVID-19 (KAYLAN) Negative (Negative) COVID-19 Clin Com See Note External Record Review External record reviewed: Inpatient record, Office record, Outpatient record, Prior outpatient labs, Prior outpatient radiology and Primary care record Chronic Conditions Patient?s care impacted by: Other (polysubstance ) Critical Care Time Critical Care Time Critical Care Time: No Discharge Plan Discharge Clinical Impression: Polysubstance abuse Patient Disposition: Home, Self-Care Instructions: Polysubstance Abuse (ED) Additional Instructions: please consider detox return for worsening symptoms or concerns. Prescriptions: No Action methadone [Methadone Intensol] 10 mg/mL Concentrate 60 mg PO DAILY Rx Instructions: lesa camarena - received verification form Vitamin 27 mg iron- 800 mcg tablet 1 tab PO QAM Print Language: Occitan
[2024-02-20] MEDS: OLANZapine 10 MG TABLET PO (15:25)
[2024-02-20] MEDS: diphenhydrAMINE HCL 25 MG CAPSULE 50 MG PO (15:25)
[2024-02-20 16:05] VITALS: BP 96/51; PULSE 76; RESP 16; TEMP 36.6; O2SAT 96
--- NOTE | 2024-02-20 16:15 | MHC.EDTECH ---
Patient became very combative while trying to get labs ,rn aware .
[2024-02-20 16:39] LABS: COVID-19 Test Negative (Negative); IDNOW Serial# 152EDE1D
[2024-02-20 22:00] VITALS: BP 111/54; PULSE 60; RESP 18; O2SAT 98
--- NOTE | 2024-02-20 23:08 | PC.NURSE ---
Took over care from Jomar Patel, pt sleeping at this time.
--- NOTE | 2024-02-21 01:49 | PC.NURSE ---
pt refusing labs and urine at this time.
--- NOTE | 2024-02-21 01:55 | MHC.EDTECH ---
pt continues to refuse blood draw.
[2024-02-21 02:19] LABS: UPreg QC Valid YES; Urine Pregnancy POSITIVE (NEGATIVE)
[2024-02-21 02:20] LABS: Appearance Urine Clear; Color Urine Yellow; Glucose Urine UA Negative (Negative); Leukocyte Esterase Urine Trace (Negative); Nitrite Urine Negative (Negative); PH 6.5 (5.0-9.0); Specific Gravity - Urine 1.015 (1.005-1.025); UMIC TRIGGER UA YES; Urine Blood Negative (Negative); Urine Ketones Negative (Negative); Urine Protein Negative (Neg-Trace)
[2024-02-21 02:27] LABS: Bacteria Urine 1+ (None Seen); Hyaline Casts Urine 0-2 /LPF (0-2); RBC Urine 0-2 /HPF (0-2)
[2024-02-21 02:29] LABS: Amphetamine Screen Urine Not Detected (Not Detect); Barbiturates, Urine Not Detected (Not Detect); Benzodiazepines Screen Urine Not Detected (Not Detect); Buprenorphine Scr Not Detected (Not Detect); Cannabinoid Screen Urine POSITIVE (Not Detect); Cocaine Screen Urine POSITIVE (Not Detect); Fentanyl, urine POSITIVE (Not Detect); Methadone Screen, Urine Positive (Not Detect); Opiate Screen Urine POSITIVE (Not Detect); Oxycodone Screen Urine Not Detected (Not Detect); Phencyclidine Screen Urine Not Detected (Not Detect)
--- NOTE | 2024-02-21 03:42 | PC.NURSE ---
pt out of bed to bathroom, drink and sandwich given, pt resting in bed.
[2024-02-21 06:02] VITALS: BP 111/42; PULSE 63; TEMP 36.9; O2SAT 97
--- NOTE | 2024-02-21 07:22 | PC.NURSE ---
Assumed care of patient at 0645, patient appears to be sleeping, respirations even and unlabored, no apparent distress noted. Continue plan of care for re-eval this am. Per DO Juan Luis, discontinue heart tones order
--- NOTE | 2024-02-21 10:43 | MHC.CARE ---
Grandmother Disha [phone] called and left message on CARE team voice mail, she requests call back from clinician that does follow up to inquire on next steps for section 35 and also has questions on current section 12.
--- NOTE | 2024-02-21 11:30 | PC.NURSE ---
Grandmother called, would like patient to call her if she is feeling up to it. [phone]
--- NOTE | 2024-02-21 11:53 | HE.PHANOTE ---
Methadone Received methadone verification form from Marsha francis. Patient receives 60 mg daily, last dose 02/19/24 @0707. [phone]
[2024-02-21] MEDS: methADONE HCl 20 MG/2 ML ORAL.CONC 60 MG PO (15:11)
[2024-02-21 15:24] VITALS: BP 108/58; PULSE 65; RESP 14; TEMP 36.9; O2SAT 99
== END 2024-02-21 15:25 | disposition home or self-care (01) ==
PROVIDERS: Physician Assistant Medical; Emergency Provider Emergency Medicine
DX: F11.10 Opioid abuse, uncomplicated (principal); F14.10 Cocaine abuse, uncomplicated; F12.10 Cannabis abuse, uncomplicated; Z79.899 Other long term (current) drug therapy; Z11.52 Encounter for screening for COVID-19
CPT/HCPCS: 80307; 81001; 81025; 87635; 99284; S9485

== ENCOUNTER 2024-03-15 08:00 | Emergency (ER) | payer OTHER, SELFPAY ==
[2024-03-15] VITALS (7 sets, daily range): BP systolic 101–118; BP diastolic 36–80; PULSE 71–101; RESP 16–20; TEMP 36.3–37.2; O2SAT 98–100; BMI 19.6
--- NOTE | ~2024-03-15 | US_ITS ---
EXAMINATION: US OBSTETRICAL ULTRASOUND, LIMITED CLINICAL INFORMATION: Abdominal pain and bleeding at 15 weeks of gestation. COMPARISON: 01/29/2024 TECHNIQUE: Sonographic imaging of the pelvis is performed using a transabdominal transducer. FINDINGS: Single viable intrauterine gestation surrounded by normal amniotic fluid volume. heart rate is 149 bpm. No biometry performed. The cervix is closed and measures approximately 3.5 cm in length. Anterior placenta has homogeneous echotexture. No placenta previa. No pelvic free fluid. The ovaries cannot be visualized. No adnexal masses are seen, but the adnexal areas are obscured by bowel. US/US OB <= 14 weeks fetus IMPRESSION: * No acute sonographic abnormalities in the visualized portion the pelvis. * A single viable intrauterine gestation is present. * No pelvic free fluid. * The ovaries cannot be visualized on this transabdominal examination.
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
[2024-03-15 08:43] LABS: MANUAL DIFF FLAG NO
[2024-03-15 08:44] LABS: Basophils Percent Auto 0.3 % (0-2); Eosinophils Absolute Auto 0.2 X10*3/uL (0.0-0.4); Eosinophils Percent Auto 2.6 % (0-4); Hematocrit 33.9 % (37.0-47.0); Hemoglobin 11.6 g/dl (12.0-16.0); Imm Gran Abs Auto 0.01 X10*3/uL (0.00-0.03); Imm Gran Pct Auto 0.1 % (0.0-0.4); Lymphocytes Absolute Auto 2.3 X10*3/uL (1.2-4.9); Lymphocytes Percent Auto 32.9 % (20-40); Mean Corpuscular HGB Conc 34.2 g/dl (31.0-35.0); Mean Corpuscular Hemoglobin 31.9 pg (27.0-33.0); Mean Corpuscular Volume 93.1 fL (80.0-98.0); Mean Platelet Volume 9.5 fL (9.4-12.3); Monocytes Absolute Auto 0.7 X10*3/uL (0.1-1.2); Monocytes Percent Auto 10.2 % (2-11); Neutrophils Absolute Auto 3.8 x10*3/uL (2.0-8.3); Neutrophils Percent Auto 53.9 % (45-73); Platelet Count 174 X10*3/uL (160-400); Red Blood Count 3.64 X10*6/uL (4.20-5.50); Red Cell Distribution Width 12.9 % (11.0-16.0)
[2024-03-15 08:58] LABS: Alanine Aminotransferase 116 U/L (0-31); Albumin Level 3.5 g/dL (3.5-5.0); Alkaline Phosphatase 53 U/L (39-117); Anion Gap 10 (12-20); Aspartate Amino Transferase 85 U/L (5-31); Bilirubin Direct 0.1 mg/dL (0.0-0.5); Bilirubin Total 0.3 mg/dL (0.0-1.0); Blood Urea Nitrogen 13 mg/dL (9-16); Calcium 8.7 mg/dL (8.4-10.2); Carbon Dioxide 25 mmol/L (22-29); Chloride 107 mmol/L (96-108); Creatinine Clr Calc Pharmacy 111.6; Estimated Glomerular Filt Rate > 60; Glucose Random 75 mg/dL (60-115); Potassium 3.1 mmol/L (3.3-5.1); Sodium 139 mmol/L (135-145); Total Protein 6.4 g/dL (6.5-8.0)
--- OUTSIDE RECORDS SUMMARY | 2024-03-15 09:02 | XMS_ITS | Continuity of Care Document ---
Author Organization [facility] Address [address] [place] [id number]- Care Team Providers Care Stockroom Attendant Name Role Phone Not on Staff, PCP Primary Care Physician Unavail able Encounter [facility] Date(s): 01/18/24 - 03/09/[address] [id number] Attending Physician: Not on Staff, Attending MD Allergies, Adverse Reactions, Alerts Substance Reaction Severity Status shellfish Active Seafood Active Oranges Active Immunizations Given and Recorded Vaccine Date Status Refusal Reason SARS-CoV-2(COVID-19)mRNA-LNP vac([id number]) 08/05/23 Recorded influenza virus vaccine, inactivated 07/27/23 Eze rded influenza virus vaccine, inactivated 04/29/17 Eze rded SARS-CoV-2 mRNA ([id number]) vax 08/10/22 Recorded SARS-CoV-2 (COVID-19) mRNA BNT-162b2 [...] Vaccine (oldterm) 97 Eze rded 1Result Comment: [employer] Medications Abilify 15 mg oral tablet 15 [...] 0 Refills, Soft Stop, 11/22/20 6:44:00 EDT, [facility]/pharmacy #[id number], Partial fill upon patient request [...] Team Personnel Name: Grady Villagomez RN Position: [facility] RN Member Role: Primary Care Nurse Name: Greg Castro RN Position: S RN Member Role: Primary Care Nurse Name: Not on Staff, PCP Position: S Physician (General Medicine) Member Role: PCP Name: Palmira Gutierrez RN Position: [facility] RN Member Role: Primary Care Nurse Name: Rand Tomas LPN Position: [facility] RN Member Role: Primary Care Nurse Name: Lalitha Lemus RN Position: [facility] RN Member Role: Primary Care Nurse Care Team Related Persons Name: JOHNNY GARCIA Address: home [address] [place] [address] Name: SELENA LAUGHLIN Address: home [address] [place] [address] Name: ERICKA HORNER Address: home [address] [place] [address]
[2024-03-15 09:23] LABS: HCG Quantitative 18627 mIU/mL
[2024-03-15] MEDS: Potassium Chloride ER 20 MEQ TAB.ER.PRT 40 MEQ PO (09:27)
[2024-03-15 09:39] LABS: Appearance Urine Clear; Color Urine Yellow; Glucose Urine UA Negative (Negative); Leukocyte Esterase Urine Negative (Negative); Nitrite Urine Negative (Negative); PH 6.5 (5.0-9.0); Urine Blood Negative (Negative); Urine Ketones Negative (Negative); Urine Protein Negative (Neg-Trace)
[2024-03-15 09:47] LABS: Amphetamine Screen Urine Not Detected (Not Detect); Barbiturates, Urine Not Detected (Not Detect); Benzodiazepines Screen Urine Not Detected (Not Detect); Buprenorphine Scr Not Detected (Not Detect); Cannabinoid Screen Urine Not Detected (Not Detect); Cocaine Screen Urine POSITIVE (Not Detect); Fentanyl, urine POSITIVE (Not Detect); Methadone Screen, Urine Positive (Not Detect); Opiate Screen Urine Not Detected (Not Detect); Oxycodone Screen Urine Not Detected (Not Detect); Phencyclidine Screen Urine Not Detected (Not Detect)
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
[2024-03-15 14:00] LABS: Bacterial Vaginosis PCR POSITIVE (Negative); Candida Group PCR NOT DETECTED (Not Detect); Candida glab krusei PCR NOT DETECTED (Not Detect); Trichomonas vaginalis PCR NOT DETECTED (Not Detect)
[2024-03-15 14:29] LABS: CT PCR NOT DETECTED (Not Detect.); NG PCR DETECTED (Not Detect.)
[2024-03-15] MEDS: metroNIDAZOLE 500 MG TABLET PO ×2 (15:00→21:28)
--- NOTE | 2024-03-15 15:03 | PC.NURSE ---
Flagyl given per oct. PT refused IM injections until after SANE kit is collected. RAMONA nurse is with the patient now.
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
--- NOTE | 2024-03-15 16:10 | MHC.EDTECH ---
this tech justice bloodwork for RAMONA nurse
[2024-03-15] MEDS: Azithromycin 500 MG TABLET 1000 MG PO (17:52)
[2024-03-15] MEDS: SANE Dolutegravir Sodium 50 MG TAB KIT PO (17:54)
[2024-03-15] MEDS: Rho(D) Immune Globulin 300 MCG SYRINGE IM (17:55)
[2024-03-15] MEDS: cefTRIAXone sodium 250 MG, Lidocaine HCl 1 % MPF 0.9 ML IM (17:59)
--- NOTE | 2024-03-15 18:09 | PC.NURSE ---
pt medicated per JAMAL, RAMONA kit prophylaxis medication stored in pt belongings bin in xis. snacks at bedside. pt pending poss detox placement.
--- NOTE | 2024-03-15 18:30 | MHC.RECOVSUP ---
? Reason for consult Recovery support o Current location: ed7 o Identified substance use concern: Heroin & Cocane - Overdose - Support ? Intervention: o Community resources provided o Harm reduction discussion ? Plan: o Patient awaiting crisis evaluation o Patient to follow up with [facility] after discharge ? Additional information: Met with Patient and we talk about Recovery and patient stated that after the 1st she would go anywhere to get Help. She stated the 1st cause thats her dad anniversary of his . we Talk about Harm reduction and different pathways and she stated that she wants a field hockey coach. a referral was made..
--- NOTE | 2024-03-16 01:40 | PC.NURSE ---
Patient requested a warm blanket and saltine crackers with apple juice, provided and tolerated well. Patient denies any pain at present. Call boone in patient's reach. Plan of care ongoing.
[2024-03-16 06:17] VITALS: BP 102/60; PULSE 70; RESP 16; O2SAT 100
--- NOTE | 2024-03-16 07:27 | MHC.EDTECH ---
Breakfast tray place in pt's room at bedside on table
--- NOTE | 2024-03-16 07:33 | PC.NURSE ---
pt states she takes methadone 60mg from [facility], no answer and message left for call back
[2024-03-16 08:41] LABS: Syphilis Screen Nonreactive (Nonreactive)
--- NOTE | 2024-03-16 09:14 | HE.PHANOTE ---
RE: methadone Verification from [facility], last dose 60mg 03/14/24 @[id number]
[2024-03-16 09:31] LABS: HBS Num1 0.62 mIU/mL (0-7.99); HBc Num1 0.16 S/CO (0.00-0.79); HBsAGNum1 0.32 S/CO (0.00-0.99); HIV AB/AG Nonreactive (Nonreactive); HIV Num 1 0.06 S/CO (0.00-0.99); Hepatitis A Antibody IgM 0.21 Index (0-0.79); Hepatitis B Core Antibody Nonreactive (Nonreactive); Hepatitis B Surface Antigen Negative (Negative); ~HepC Num1 16.11 S/CO (0.00-0.79); ~Hepatitis A Antibody IgM Nonreactive (Nonreactive); ~Hepatitis B Surface Antibody NONREACTIVE (Nonreactive); ~Hepatitis C Antibody Reactive (Nonreactive)
[2024-03-16] MEDS: methADONE HCl 20 MG/2 ML ORAL.CONC 60 MG PO (09:33)
[2024-03-16] MEDS: metroNIDAZOLE 500 MG TABLET PO (09:33)
--- NOTE | 2024-03-16 09:49 | PC.NURSE ---
medicated as ordered, methadone confirmed and give, alert speech clear, states she wants to talk with Recovery, Louisa aware and will come speak with her when available, pt eating, nad, skin wpd
--- NOTE | 2024-03-16 10:37 | PC.NURSE ---
pts grandmother called and asked for the pt's rn, I asked the pt if she wanted to talk with her and she stated that she just talked with her, doesn't want to talk with her and did not want us talking to her, I picked up the phone and the grandmother was concerned about her and I explained I could not give any information, when I was on the phone the pt came over to me and yelled thaty i should not be talking to her. I explained to the pt that I did not give any information
[2024-03-16 11:30] VITALS: BP 112/68; PULSE 78; RESP 18; TEMP 36.6; O2SAT 97
--- NOTE | 2024-03-16 11:47 | MHC.RECOVRN ---
Met with pt in ED7 to provide support. Pt requesting many referrals, including ATS (but does not want to go today), CSS, TSS, residential facilities, IOP, etc. Pt educated on limitations of referrals from ED. Pt aware she needs to call facilities and IOP to make intake appts. swimming coach referral placed. Pt provided with written resources and recovery information. Pt would like to be discharged to grandmother's house in [place]. Will be transported via Lyft. Provider aware.
[2024-03-16 12:51] VITALS: BP 112/68; PULSE 78; RESP 18; TEMP 36.6; O2SAT 97
--- NOTE | 2024-03-17 11:35 | PC.NURSE ---
Addendum entered by Brown Mackey 03/17/24 12:03: after talking with other nurses in the ED, the pts meds were put in the pt specific bin to be removed when the pt was discharged. the meds were not given to the pt at discharge Original Note: Betina from Pharmacy informed me and Dr Mcknight that Christina left without her prophylaxis meds. it seems that the meds were given to her but they were sent back up to pharmacy overnight while she was here. I called and left a message for the pt on her phone and confirmed her number with her contact manager/mother. the mother states that she was kicked out of the grandmothers house by [employer] and that she is back living on the streets , mother has not heard from her and does not know where she is. mother will attempt to contact the pt and will help her et the meds from here if she is able
--- NOTE | 2024-03-17 11:53 | HE.PHANOTE ---
SANE KIT SANE kit brought back from the ED by pharmacy aide because patient was discharged. Spoke with Yandel and Dr. Mcknight who attempted to call patient to come back to ED to picker/puller kit. The kit will be sent back to ED pyxis and placed in patient specific bin in case the patient comes back to picker/puller the kit while pharmacy is closed.
== END 2024-03-16 12:53 | disposition home or self-care (01) ==
PROVIDERS: Physician Assistant; Emergency Provider Emergency Medicine
DX: O9A.212 Injury, poisoning and certain other consequences of external causes complicating pregnancy, second trimester (principal); O20.9 Hemorrhage in early pregnancy, unspecified; O98.212 Gonorrhea complicating pregnancy, second trimester; N76.0 Acute vaginitis; B96.6 Bacteroides fragilis [B. fragilis] as the cause of diseases classified elsewhere; R10.2 Pelvic and perineal pain; Z3A.15 15 weeks gestation of pregnancy; Z51.81 Encounter for therapeutic drug level monitoring; Z79.899 Other long term (current) drug therapy
CPT/HCPCS: 0352U; 36415; 76801; 80048; 80076; 80307; 81003; 82550; 83735; 84702; 85025; 86704; 86706; 86709; 86780; 86803; 86850; 86900; 86901; 87340; 87389; 87491; 87591; 96372; 99285; J0696; J2790

== ENCOUNTER → 2024-03-15 08:59 | Outpatient (BNV) | payer OTHER, SELFPAY | PROVIDERS: Emergency Provider Emergency Medicine; Visit Provider Obstetrics & Gynecology | DX: T50.901A Poisoning by unspecified drugs, medicaments and biological substances, accidental (unintentional), initial encounter (principal); Z3A.15 15 weeks gestation of pregnancy; T74.21XA Adult sexual abuse, confirmed, initial encounter | CPT/HCPCS: 99283 ==

== ENCOUNTER 2024-04-20 17:09 | Emergency (ER) | payer OTHER, SELFPAY ==
[2024-04-20 17:16] VITALS: BP 122/78; PULSE 130; O2SAT 98; BMI 20.8
--- NOTE | 2024-04-20 17:20 | ED_ITS ---
HPI - General Adult General Chief complaint: Psychiatric Symptoms Stated complaint: ETOH, needs eval Time Seen by Provider: 04/20/24 17:16 Source: patient, RN notes reviewed and old records reviewed Mode of arrival: EMS Limitations: no limitations History of Present Illness ED Provider: Scott LADD narrative: 29-year-old female presents for evaluation of a medical evaluation to return to a sober living home. I was asked to see the patient after she attempted to elope from the emergency department immediately after arriving. The patient has no complaints, she is not suicidal. She is unwilling to admit whether or not she used any illicit substances She reports that she does not wish to go back to his sober living house, and therefore she does not require medical evaluation She states that she has a safe place to live She would like to be discharged from the hospital The patient was tachycardic to about 130 but otherwise vital signs normal The patient denies any chest pain, shortness of breath, palpitations, lightheadedness, dizziness, nausea vomiting Related Data Allergies Allergy/AdvReac Type Severity Reaction Status Date / Time Unable to Assess Allergy Verified 04/20/24 17:20 Review of Systems Constitutional: Constitutional: Denies body ache(s), Denies chills, Denies fever(s) and Denies headache(s) ENT: Denies vertigo, Denies dizziness and Denies headache(s) Cardiovascular: Cardiovascular: Denies chest pain and Denies dyspnea Respiratory: Respiratory: Denies cough and Denies dyspnea Gastrointestinal: Gastrointestinal: Denies abdominal pain, Denies nausea and Denies vomiting Musculoskeletal: Musculoskeletal: Denies back pain Integumentary/Breasts: Skin/Breast: Denies rash Neurologic: Denies vertigo, Denies dizziness and Denies headache(s) PMFSH Social History Social History Advance Directives: No Advance Directives Information Provided: No Physical Exam ED Vital Signs: BMI result Body Mass Index 20.8 Const General: healthy appearing, comfortable, no acute distress, alert and awake Nutritional Appearance: well nourished Orientation/consciousness: patient oriented x3 HENMT Head: Yes normocephalic and Yes atraumatic Eyes Eyelids: Yes eyelids normal Conjunctivae: conjunctivae normal Sclerae: sclerae normal Corneas: corneas normal Pupils: Equal, round and reactive pupils present EOM: EOMs intact bilaterally Neck Neck: Yes full ROM Resp Effort & Inspection: normal respiratory effort, able to speak in complete sentences, no audible wheezes and not labored Auscultation: clear to auscultation bilaterally Cardio Rate: tachycardic Rhythm: regular rhythm Skin General skin exam: elasticity normal Neuro General: patient oriented x3 Cranial nerves: Yes CN's II-XII intact bilaterally, Yes Equal, round and reactive pupils present and Yes Bilaterally intact EOM present Cognition (Neuro): normal cognition Extrem Other: Moving all extremities well without any obvious deformities Medical Decision Making Medical Decision Making MDM Narrative: 29-year-old female presents for evaluation for a reported medical evaluation due to potential substance abuse. The patient has no wish to be evaluated, she does not wish to go back to his sober living house. She understands that she will likely be kicked out if she does not go through with a medical evaluation. She is cooperative to confirm that she is awake, alert and oriented. She denies any somatic complaints. Given that the patient appears to have capacity to deny a medical evaluation, I do not see any reason to keep her in the hospital against her will. She is not suicidal, she does not appear to be a danger to herself or anybody else. She will be discharged per her wishes Differential Diagnosis Differential Diagnoses: The differential diagnosis associated with the presentation includes Substance abuse Medical evaluation Well visit Tachycardia Discharge Plan Discharge Clinical Impression: Tachycardia Patient Disposition: Home, Self-Care Instructions: Tachycardia (ED) Print Language: Belarusian
--- NOTE | 2024-04-20 17:21 | PC.NURSE ---
Pt. arrives to ED uncooperative and demanding to leave. Rapid mental assessment performed by PUSHPA Ardon to determine pt.'s capacity. Discharged immediately per PA
[2024-04-20 18:18] VITALS: BP 0/0; PULSE 0; RESP 20; TEMP -17.7; TEMP 0; O2SAT 0
--- NOTE | 2024-04-20 18:20 | PC.NURSE ---
Pt. uncooperative with discharge VS or [place] Suicide Screen. Refusing to answer or have vital signs taken.
--- NOTE | 2024-04-20 18:22 | PC.NURSE ---
Checked in with PUSHPA Ardon. PA states that pt. denied SI/HI to him.
== END 2024-04-20 18:22 | disposition home or self-care (01) ==
PROVIDERS: Emergency Provider Emergency Medicine Emergency Medical Services; PCP Nurse Practitioner Primary Care
DX: R00.0 Tachycardia, unspecified (principal)
CPT/HCPCS: 99281; 99283

== ENCOUNTER 2024-04-25 21:53 | Emergency (ER) | payer OTHER, SELFPAY ==
[2024-04-25 22:01] VITALS: BP 99/51; PULSE 100; RESP 20; TEMP 36.9; O2SAT 97; O2SAT 98; BMI 24.2
[2024-04-25 22:12] VITALS: BP 99/51; PULSE 92; RESP 20; TEMP 36.8; O2SAT 99
--- NOTE | 2024-04-25 22:21 | PC.NURSE ---
belongings were sent to
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
[2024-04-26] VITALS: BP 104/44; PULSE 94; RESP 16; TEMP 36.7; O2SAT 100
--- NOTE | 2024-04-26 00:24 | PC.NURSE ---
Patient requesting drinks, provided along with socks per patient request.
--- NOTE | 2024-04-26 01:27 | PC.NURSE ---
Ultrasound completed with MD to verify heart activity. heart activity confirmed
[2024-04-26 02:18] VITALS: BP 0/0; PULSE 0; RESP 25; TEMP -17.7; TEMP 0
== END 2024-04-26 02:27 | disposition short-term general hospital (02) ==
PROVIDERS: Emergency Provider Emergency Medicine
DX: O9A.219 Injury, poisoning and certain other consequences of external causes complicating pregnancy, unspecified trimester (principal); S39.81XA Other specified injuries of abdomen, initial encounter; Y04.0XXA Assault by unarmed brawl or fight, initial encounter; Y93.9 Activity, unspecified; Y92.9 Unspecified place or not applicable; Y99.9 Unspecified external cause status
CPT/HCPCS: 99285

== ENCOUNTER 2024-05-07 14:00 | Emergency (ER) | payer OTHER, SELFPAY ==
[2024-05-07 14:11] VITALS: BP 110/60; PULSE 86; O2SAT 98
[2024-05-07 14:24] VITALS: BP 108/38; PULSE 83; RESP 20; TEMP 36.6; O2SAT 98; BMI 25.4
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
--- OUTSIDE RECORDS SUMMARY | 2024-05-07 14:54 | XMS_ITS | Continuity of Care Document ---
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 [address] Name: SELENA LAUGHLIN Address: home [address] [place] [address] Name: ERICKA HORNER Address: home [address] [place] [address]
--- OUTSIDE RECORDS SUMMARY | 2024-05-07 14:54 | XMS_ITS | Continuity of Care Document ---
Author Organization [facility] Address [address] [place] [id number]- Care Team Providers Care Microbiology Instructor Name Role Phone Not on Staff, PCP Primary Care Physician Unavail able Encounter [facility] Date(s): 03/06/24 - 04/27/[address] [address]- Attending Physician: Not on Staff, Attending MD Allergies, Adverse Reactions, Alerts Substance Reaction Severity Status shellfish Active Seafood Active Oranges Active Immunizations Given and Recorded Vaccine Date Status Refusal Reason SARS-CoV-2(COVID-19)mRNA-LNP vac([id number]) 08/05/23 Recorded influenza virus vaccine, inactivated 07/27/23 Eze rded influenza virus vaccine, inactivated 04/29/17 Eze rded SARS-CoV-2 mRNA ([id number]) vax 08/10/22 Recorded SARS-CoV-2 (COVID-19) mRNA BNT-162b2 [...] Vaccine (oldterm) 97 Eze rded 1Result Comment: Rising Medications cephalexin monohydrate 500 mg oral capsule [...] 0 Refills, Soft Stop, 04/26/24 18:01:00 EDT, [facility], Partial fill upon patient request if the prescription is for a schedule II opioid drug., 153, cm, 04/26/24 14:12:00 EDT, Height, 52, kg, ... Start Date: 04/26/24 Status: Ordered Pulmicort Flexhaler 90 mcg 2 puffs, Inhalation, 2 times a day, # 1 each, 4 Refills, Maintenance, 04/26/24 19:53:00 EDT, Powder, [facility], Partial fill upon patient [...] 7 Refills, Maintenance, 04/26/24 18:00:00 EDT, Inhaler, [facility], Partial fill upon patient [...] Confirmed Active H/O Substance abuse Confirmed Active Social History Social History Type Response Smoking Status 10 or more cigarette s (1/2 pack or more)/day in last 30 days; Type: Cigarettes; Tobacco use times per day: 1 PPD; Started at age: 16; entered on: 07/20/19 Sex Patient Care team information Care Team Personnel Name: Grady Villagomez RN Position: [facility] RN Member Role: Primary Care Nurse Name: Greg Castro RN Position: S RN Member Role: Primary Care Nurse Name: Not on Staff, PCP Position: [facility] Physician (General Medicine) Member Role: PCP Name: Palmira Gutierrez RN Position: [facility] RN Member Role: Primary Care Nurse Name: Rand Tomas LPN Position: S RN Member Role: Primary Care Nurse Name: Lalitha Lemus RN Position: S RN Member Role: Primary Care Nurse Care Team Related Persons Name: JOHNNY GARCIA Address: home [address] [place] [address] Name: SELENA LAUGHLIN Address: home [address] [place] [address] Name: ERICKA HORNER Address: home [address] [place] [address]
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
--- OUTSIDE RECORDS SUMMARY | 2024-05-07 14:54 | XMS_ITS | Continuity of Care Document ---
Author Organization [facility] Address [address] [place] [address]- Care Team Providers Care Home Health Cna Name Role Phone Not on Staff, PCP Primary Care Physician Unavail able Encounter [facility] Date(s): 05/04/24 - 05/05/[address] [address]- Encounter Diagnosis Angelique(Final) - 05/04/24 Discharge Disposition: Transfer to [facility] Facility Attending Physician: Socorro Rosario MD Admitting Physician: Socorro Rosario MD Referring Physician: Not on Staff, Referring MD Allergies, Adverse Reactions, Alerts Substance Reaction Severity Status shellfish Active Fish Active Lobster Active Seafood Active Other Food Allergy 1 Active Arizmendi Active Melon Active Oranges Active 1olives and grapefruit Immunizations Given and Recorded Vaccine Date Status Refusal Reason SARS-CoV-2(COVID-19)mRNA-LNP vac([id number]) 08/05/23 Recorded influenza virus vaccine, inactivated 07/27/23 Eze rded influenza virus vaccine, inactivated 04/29/17 Eze rded SARS-CoV-2 mRNA ([id number]) vax 08/10/22 Recorded SARS-CoV-2 (COVID-19) mRNA BNT-162b2 [...] Vaccine (oldterm) 97 Eze rded 1Result Comment: [employer] Medications cephalexin monohydrate 500 mg oral capsule [...] Ordered methadone 10 mg/5 mL oral solution 30 mL = 60 mg, By Mouth, Daily, 0 Refills, Maintenance, 07/20/23 10:45:00 EST, Solution, Partial fill upon patient request if the prescription is for a schedule II opioid drug. Start Date: 07/20/23 Status: Ordered Methadone Tablet 30 mg, Tablet, By Mouth, Once, STAT, 05/05/24 1:57:00 EDT, Stop date 05/05/24 1:57:00 EDT Start Date: 05/05/24 Stop Date: 05/05/24 Status: Completed mirtazapine 30 mg oral tablet 1 tablet = 30 mg, By Mouth, Daily at bedtime, # 30 tablet, 0 Refills, Maintenance, 12/26/19 13:37:00 EDT, Tablet Start Date: 12/26/19 Status: Ordered nalOXONE 4 mg/0.1 mL nasal spray = 4 mg, Nares, Both, Once, # 2 each, 0 Refills, Soft Stop, 04/26/24 18:01:00 EDT, [facility], Partial fill upon patient request if the prescription is for a schedule II opioid drug., 153, cm, 04/26/24 14:12:00 EDT, Height, 52, kg, ... Start Date: 04/26/24 Status: Ordered Pulmicort Flexhaler 90 mcg 2 puffs, Inhalation, 2 times a day, # 1 each, 4 Refills, Maintenance, 04/26/24 19:53:00 EDT, Powder, [facility], Partial fill upon patient [...] 7 Refills, Maintenance, 04/26/24 18:00:00 EDT, Inhaler, [facility], Partial fill upon patient [...] Range]: 1 2 3 Height 153 cm (05/05/24 9:32 AM) 153 cm (05/04/24 7:53 PM) 153 cm (05/04/24 3:15 PM) Oxygen Saturation [94-100 %] 100 % (05/05/24 9:32 AM) 100 % (05/04/24 7:53 PM) 100 % (05/04/24 3:15 PM) Pulse Rate [55-90 bpm] 87 bpm (05/05/24 9:32 AM) 98 bpm *H* (05/04/24 7:53 PM) 106 bpm *H* (05/04/24 3:15 PM) Blood Pressure [90-138/55-84 mm Hg] 109/69mm Hg (05/05/24 9:32 AM) 124/59mm Hg (05/04/24 7:53 PM) 124/88mm Hg (05/04/24 3:15 PM) Respiratory Rate [16-30 br/min] 16 br/min (05/05/24 9:32 AM) 18 br/min (05/05/24 6:50 AM) 16 br/min (05/04/24 7:53 PM) Temperature [96.8-100.4 DegF] 98.6 DegF (05/05/24 9:32 AM) 98.1 DegF (05/04/24 7:53 PM) 98.2 DegF (05/04/24 3:15 PM) Mode of Delivery (Oxygen) Room air (05/05/24 9:32 AM) Room air (05/04/24 7:53 PM) Room air (05/04/24 3:15 PM) Blood pressure sites Arm, left (05/05/24 9:32 AM) Arm, left (05/04/24 7:53 PM) Arm, left (05/04/24 3:15 PM) Temperature Route Oral (05/05/24 9:32 AM) Oral (05/04/24 7:53 PM) Oral (05/04/24 3:15 PM) Social History Social History Type Response Smoking Status 10 or more cigarette s (1/2 pack or more)/day in last 30 days; Type: Cigarettes; Tobacco use times per day: 1 PPD; Started at age: 16; entered on: 07/20/19 Sex Patient Care team information Care Team Personnel Name: Marybeth Easley RN Position: S RN Member Role: Primary Care Nurse Name: Grady Villagomez RN Position: S RN Member Role: Primary Care Nurse Name: Nisha Guillaume RN Position: S RN Member Role: Primary Care Nurse Name: Marine Fisher LPN Position: S RN Member Role: Primary Care Nurse Name: Greg Castro RN Position: S RN Member Role: Primary Care Nurse Name: Not on Staff, PCP Position: [facility] Physician (General Medicine) Member Role: PCP Name: Palmira Gutierrez RN Position: S RN Member Role: Primary Care Nurse Name: Rand Tomas LPN Position: S RN Member Role: Primary Care Nurse Name: Cassandra Mixon RN Position: S RN Member Role: Primary Care Nurse Name: Lalitha Lemus RN Position: S RN Member Role: Primary Care Nurse Care Team Related Persons Name: JAY GARCIATOR Address: home [address] [place] [address] Name: SELENA LAUGHLIN Address: home [address] [place] [address] Name: HIGINIO LAUGHLIN
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
--- OUTSIDE RECORDS SUMMARY | 2024-05-07 14:55 | XMS_ITS | Continuity of Care Document ---
Author Organization [facility] Address [address] [place] [address]- Care Team Providers Care Industrial Roofer Name Role Phone Not on Staff, PCP Primary Care Physician Unavail able [facility] 04[facility]24 - 05/02/[address] [address]- Allergies, Adverse Reactions, Alerts Substance Reaction Severity Status shellfish Active Fish Active Lobster Active Seafood Active Other Food Allergy 1 Active Arizmendi Active Oranges Active Melon Active 1olives and grapefruit Immunizations Given and Recorded Vaccine Date Status Refusal Reason SARS-CoV-2(COVID-19)mRNA-LNP vac([id number]) 08/05/23 Recorded influenza virus vaccine, inactivated 07/27/23 Eze rded influenza virus vaccine, inactivated 04/29/17 Eze rded SARS-CoV-2 mRNA ([id number]) vax 08/10/22 Recorded SARS-CoV-2 (COVID-19) mRNA BNT-162b2 [...] Vaccine (oldterm) 97 Eze rded 1Result Comment: [email or web address] Medications cephalexin monohydrate 500 mg oral capsule [...] Refills, Soft Stop, 04/26/24 18:01:00 EDT, [facility], Partial fill upon patient request if the prescription is for a schedule II opioid drug., 153, cm, 04/26/24 14:12:00 EDT, Height, 52, kg, ... Start Date: 04/26/24 Status: Ordered Pulmicort Flexhaler 90 mcg 2 puffs, Inhalation, 2 times a day, # 1 each, 4 Refills, Maintenance, 04/26/24 19:53:00 EDT, Powder, [facility], Partial fill upon patient [...] Refills, Maintenance, 04/26/24 18:00:00 EDT, Inhaler, [facility], Partial fill upon patient [...] Team Personnel Name: Marybeth Easley RN Position: [facility] RN Member Role: Primary Care Nurse Name: Grady Villagomez RN Position: [facility] RN Member Role: Primary Care Nurse Name: Nisha Guillaume RN Position: [facility] RN Member Role: Primary Care Nurse Name: Marine Fisher LPN Position: S RN Member Role: Primary Care Nurse Name: Greg Castro RN Position: S RN Member Role: Primary Care Nurse Name: Not on Staff, PCP Position: [facility] Physician (General Medicine) Member Role: PCP Name: Palmira Gutierrez RN Position: [facility] RN Member Role: Primary Care Nurse Name: Rand Tomas LPN Position: [facility] RN Member Role: Primary Care Nurse Name: Cassandra Mixon RN Position: [facility] RN Member Role: Primary Care Nurse Name: Lalitha Lemus RN Position: [facility] RN Member Role: Primary Care Nurse Care Team Related Persons Name: JOHNNY GARCIA Address: home [address] [place] [address] Name: SELENA LAUGHLIN Address: home [address] [place] [address] Name: ERICKA HORNER Address: home [address] [place] [address]
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
--- NOTE | 2024-05-07 15:03 | PC.NURSE ---
MD and discharge planner aware of situation, reports that [facility] nurse is being contacted.
--- NOTE | 2024-05-07 15:05 | PC.NURSE ---
Pt is changed over into safety clothing with tech. Sitter at bedside. Denies SI or HI.
[2024-05-07 15:13] LABS: Appearance Urine Clear; Color Urine Dark Yellow; Glucose Urine UA Negative (Negative); Leukocyte Esterase Urine Negative (Negative); Nitrite Urine Negative (Negative); PH 5.5 (5.0-9.0); Specific Gravity - Urine 1.025 (1.005-1.025); Urine Blood Negative (Negative); Urine Ketones Trace mg/dL (Negative); Urine Protein Negative (Neg-Trace)
[2024-05-07 15:22] LABS: PLT CLUMP 1
[2024-05-07 15:29] LABS: Amphetamine Screen Urine Not Detected (Not Detect); Barbiturates, Urine Not Detected (Not Detect); Benzodiazepines Screen Urine Not Detected (Not Detect); Buprenorphine Scr Not Detected (Not Detect); Cannabinoid Screen Urine Not Detected (Not Detect); Cocaine Screen Urine POSITIVE (Not Detect); Fentanyl, urine POSITIVE (Not Detect); Hematocrit 34.6 % (37.0-47.0); Mean Corpuscular HGB Conc 34.7 g/dl (31.0-35.0); Mean Corpuscular Hemoglobin 32.5 pg (27.0-33.0); Mean Corpuscular Volume 93.8 fL (80.0-98.0); Methadone Screen, Urine Positive (Not Detect); Opiate Screen Urine Not Detected (Not Detect); Oxycodone Screen Urine Not Detected (Not Detect); Phencyclidine Screen Urine Not Detected (Not Detect); Red Blood Count 3.69 X10*6/uL (4.20-5.50); Red Cell Distribution Width 12.7 % (11.0-16.0)
[2024-05-07 15:32] LABS: Alanine Aminotransferase 236 U/L (0-31); Albumin Level 3.1 g/dL (3.5-5.0); Alkaline Phosphatase 59 U/L (39-117); Anion Gap 11 (12-20); Aspartate Amino Transferase 123 U/L (5-31); Bilirubin Direct < 0.2 mg/dL (0.0-0.5); Bilirubin Total 0.1 mg/dL (0.0-1.0); Blood Urea Nitrogen 17 mg/dL (9-16); Calcium 9.2 mg/dL (8.4-10.2); Carbon Dioxide 24 mmol/L (22-29); Chloride 106 mmol/L (96-108); Creatinine Clr Calc Pharmacy 121.2; Estimated Glomerular Filt Rate > 60; Glucose Random 111 mg/dL (60-115); Magnesium 1.7 mg/dL (1.6-2.6); Potassium 3.6 mmol/L (3.3-5.1); Sodium 137 mmol/L (135-145); Total Protein 6.2 g/dL (6.5-8.0); White Blood Count 5.6 X10*3/uL (4.8-10.8)
--- NOTE | 2024-05-07 15:46 | PC.NURSE ---
senior market intelligence consultant Call to advocate and SANE with call back and on their way for exam
[2024-05-07 15:54] LABS: SLIDE REVIEW MANUAL DIFF
[2024-05-07 16:03] LABS: Band Neutrophils Percent 9 % (3-5); Eosinophils Absolute Manual 0.2 X10*3/uL (0.0-0.4); Eosinophils Percent Manual 3 % (0-4); Lymphocytes Absolute Manual 1.8 X10*3/uL (1.2-4.9); Lymphocytes Percent Manual 32 % (20-40); Monocytes Absolute Manual 0.7 X10*3/uL (0.1-1.2); Monocytes Percent Manual 12 % (2-11); Neutrophils Percent Manual 44 % (45-73)
[2024-05-07 16:04] LABS: Platelet Estimate NORMAL (NORMAL); Platelet Morphology Comment NORMAL; RBC Morphology NORMAL
[2024-05-07 16:05] LABS: Platelet Count 148 X10*3/uL (160-400)
--- NOTE | 2024-05-07 17:08 | MHC.EDTECH ---
This PCT attended to obtain blood cultures x1, after inserting the needle patient asked for it to be removed & stated the tourniquet was hurting her and then the pt refused to continue getting blood cultures.
[2024-05-07] MEDS: Clindamycin HCL 300 MG CAPSULE PO (17:26)
--- NOTE | 2024-05-07 17:49 | PC.NURSE ---
report given to RN at [facility]. patient waiting for transport back to facility.
[2024-05-07 18:51] VITALS: BP 108/38; PULSE 83; RESP 20; TEMP 36.6; O2SAT 98
[2024-05-08 08:19] LABS: HBS Num1 0.88 mIU/mL (0-7.99); HBc Num1 0.13 S/CO (0.00-0.79); HBsAGNum1 0.25 S/CO (0.00-0.99); HIV AB/AG Nonreactive (Nonreactive); HIV Num 1 0.06 S/CO (0.00-0.99); Hepatitis A Antibody IgM 0.19 Index (0-0.79); Hepatitis B Core Antibody Nonreactive (Nonreactive); Hepatitis B Surface Antigen Negative (Negative); ~Hepatitis A Antibody IgM Nonreactive (Nonreactive); ~Hepatitis B Surface Antibody NONREACTIVE (Nonreactive); ~Hepatitis C Antibody Reactive (Nonreactive)
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
== END 2024-05-07 18:52 | disposition home or self-care (01) ==
PROVIDERS: Emergency Provider Emergency Medicine
DX: O23.42 Unspecified infection of urinary tract in pregnancy, second trimester (principal); Z3A.22 22 weeks gestation of pregnancy; F11.10 Opioid abuse, uncomplicated; F14.10 Cocaine abuse, uncomplicated; L03.113 Cellulitis of right upper limb; F17.210 Nicotine dependence, cigarettes, uncomplicated; L02.511 Cutaneous abscess of right hand; Z79.899 Other long term (current) drug therapy; Z51.81 Encounter for therapeutic drug level monitoring
CPT/HCPCS: 36415; 80048; 80076; 80307; 81003; 83735; 85007; 85027; 86704; 86706; 86709; 86803; 87340; 87389; 99284

== ENCOUNTER 2024-05-27 12:08 | Emergency (ER) | payer OTHER, SELFPAY ==
[2024-05-27 12:17] VITALS: BMI 21.3
--- OUTSIDE RECORDS SUMMARY | 2024-05-27 12:26 | XMS_ITS | Continuity of Care Document ---
Author Organization [facility] Address [address] [place] [id number]- Care Team Providers Care Senior Net Application Developer Name Role Phone Not on Staff, PCP Primary Care Physician Unavail able [facility]24 - 05/26/[address] [address]- Attending Physician: Chucky DELGADILLO [OB], Funmi Acevedo Admitting Physician: Chucky DELGADILLO [OB], Funmi Acevedo Referring Physician: Gustavo NICHOLE, MODEL MAKER PLASTER, Lou Haywood Allergies, Adverse Reactions, Alerts Substance Reaction Severity Status shellfish Active Fish Active Lobster Active Seafood Active Other Food Allergy 1 Active Arizmendi Active Oranges Active Melon Active 1olives and grapefruit Immunizations Given and Recorded Vaccine Date Status Refusal Reason SARS-CoV-2(COVID-19)mRNA-LNP vac([id number]) 08/05/23 Recorded influenza virus vaccine, inactivated 07/27/23 Eze rded influenza virus vaccine, inactivated 04/29/17 Eze rded SARS-CoV-2 mRNA ([id number]) vax 08/10/22 Recorded SARS-CoV-2 (COVID-19) mRNA BNT-162b2 [...] Vaccine (oldterm) 97 Eze rded 1Result Comment: [employer] Medications cephalexin monohydrate 500 mg oral capsule [...] 0 Refills, Soft Stop, 04/26/24 18:01:00 EDT, [facility], Partial fill upon patient request if the prescription is for a schedule II opioid drug., 153, cm, 04/26/24 14:12:00 EDT, Height, 52, kg, ... Start Date: 04/26/24 Status: Ordered Pulmicort Flexhaler 90 mcg 2 puffs, Inhalation, 2 times a day, # 1 each, 4 Refills, Maintenance, 04/26/24 19:53:00 EDT, Powder, [facility], Partial fill upon patient [...] 7 Refills, Maintenance, 04/26/24 18:00:00 EDT, Inhaler, [facility], Partial fill upon patient [...] Team Personnel Name: Marybeth Easley RN Position: [facility] RN Member Role: Primary Care Nurse Name: Grady Villagomez RN Position: S RN Member Role: Primary Care Nurse Name: Nisha Guillaume RN Position: S RN Member Role: Primary Care Nurse Name: Marine Fisher LPN Position: S RN Member Role: Primary Care Nurse Name: Greg Castro RN Position: S RN Member Role: Primary Care Nurse Name: Not on Staff, PCP Position: [facility] Physician (General Medicine) Member Role: [...] Persons Name: JOHNNY GARCIA Address: home [address] [place] [address] Name: SELENA LAUGHLIN Address: home [address] [place] [address] Name: HIGINIO LAUGHLIN
--- OUTSIDE RECORDS SUMMARY | 2024-05-27 12:27 | XMS_ITS | Continuity of Care Document ---
Author Organization [facility] Address [address] [place] [address]- Care Team Providers Care Spring Manufacturing Set Up Technician Name Role Phone Not on Staff, PCP Primary Care Physician Unavail able [facility]24 - 05/26/[address] [address]- Allergies, Adverse Reactions, Alerts Substance Reaction Severity Status shellfish Active Fish Active Lobster Active Arizmendi Active Melon Active Other Food Allergy 1 Active Seafood Active Oranges Active 1olives and grapefruit Immunizations Given and Recorded Vaccine Date Status Refusal Reason SARS-CoV-2(COVID-19)mRNA-LNP vac([id number]) 08/05/23 Recorded influenza virus vaccine, inactivated 07/27/23 Eze rded influenza virus vaccine, inactivated 04/29/17 Eze rded SARS-CoV-2 mRNA ([id number]) vax 08/10/22 Recorded SARS-CoV-2 (COVID-19) mRNA BNT-162b2 [...] Vaccine (oldterm) 97 Eze rded 1Result Comment: [employer] Medications cephalexin monohydrate 500 mg oral capsule [...] 0 Refills, Soft Stop, 04/26/24 18:01:00 EDT, [facility], Partial fill upon patient request if the prescription is for a schedule II opioid drug., 153, cm, 04/26/24 14:12:00 EDT, Height, 52, kg, ... Start Date: 04/26/24 Status: Ordered Pulmicort Flexhaler 90 mcg 2 puffs, Inhalation, 2 times a day, # 1 each, 4 Refills, Maintenance, 04/26/24 19:53:00 EDT, Powder, [facility], Partial fill upon patient request [...] 7 Refills, Maintenance, 04/26/24 18:00:00 EDT, Inhaler, [facility], Partial fill upon patient request [...] Team Personnel Name: Marybeth Easley RN Position: [facility] RN Member Role: Primary Care Nurse Name: Grady Villagomez RN Position: [facility] RN Member Role: Primary Care Nurse Name: Nisha Guillaume RN Position: [facility] RN Member Role: Primary Care Nurse Name: Marine Fisher LPN Position: S RN Member Role: Primary Care Nurse Name: Greg Castro RN Position: S RN Member Role: Primary Care Nurse Name: Not on Staff, PCP Position: [facility] Physician (General Medicine) Member Role: PCP Name: Palmira Gutierrez RN Position: S RN Member Role: Primary Care Nurse Name: Rand Tomas LPN Position: S RN Member Role: Primary Care Nurse Name: Cassandra Mixon RN Position: [facility] RN Member Role: Primary Care Nurse Name: Lalitha Lemus RN Position: [facility] RN Member Role: Primary Care Nurse Care Team Related Persons Name: JOHNNY GARCIA Address: home [address] [place] [address] Name: SELENA LAUGHLIN Address: home [address] [place] [address] Name: HIGINIO LAUGHLIN
--- OUTSIDE RECORDS SUMMARY | 2024-05-27 12:27 | XMS_ITS | Continuity of Care Document ---
Author Organization [facility] Address [address] [place] [address]- Care Team Providers Care Inspector Precision Assembly Name Role Phone Not on Staff, PCP Primary Care Physician Unavail able [facility] 04[facility]24 - 05/26/[address] [address]- Allergies, Adverse Reactions, Alerts Substance Reaction Severity Status shellfish Active Fish Active Lobster Active Arizmendi Active Melon Active Other Food Allergy 1 Active Seafood Active Oranges Active 1olives and grapefruit Immunizations Given and Recorded Vaccine Date Status Refusal Reason SARS-CoV-2(COVID-19)mRNA-LNP vac([id number]) 08/05/23 Recorded influenza virus vaccine, inactivated 07/27/23 Eze rded influenza virus vaccine, inactivated 04/29/17 Eze rded SARS-CoV-2 mRNA ([id number]) vax 08/10/22 Recorded SARS-CoV-2 (COVID-19) mRNA BNT-162b2 [...] Vaccine (oldterm) 97 Eze rded 1Result Comment: [employer] Medications cephalexin monohydrate 500 mg oral capsule [...] 0 Refills, Soft Stop, 04/26/24 18:01:00 EDT, [facility], Partial fill upon patient request if the prescription is for a schedule II opioid drug., 153, cm, 04/26/24 14:12:00 EDT, Height, 52, kg, ... Start Date: 04/26/24 Status: Ordered Pulmicort Flexhaler 90 mcg 2 puffs, Inhalation, 2 times a day, # 1 each, 4 Refills, Maintenance, 04/26/24 19:53:00 EDT, Powder, [facility], Partial fill upon patient request [...] 7 Refills, Maintenance, 04/26/24 18:00:00 EDT, Inhaler, [facility], Partial fill upon patient request [...] Team Personnel Name: Marybeth Easley RN Position: [facility] RN Member Role: Primary Care Nurse Name: Grady Villagomez RN Position: [facility] RN Member Role: Primary Care Nurse Name: Nisha Guillaume RN Position: [facility] RN Member Role: Primary Care Nurse Name: Marine Fisher LPN Position: S RN Member Role: Primary Care Nurse Name: Greg Castro RN Position: S RN Member Role: Primary Care Nurse Name: Not on Staff, PCP Position: [facility] Physician (General Medicine) Member Role: PCP [...] Persons Name: JOHNNY GARCIA Address: home [address] [place] [address] Name: SELENA LAUGHLIN Address: home [address] [place] [address] Name: HIGINIO LAUGHLIN
[2024-05-27 12:30] VITALS: BP 104/72; PULSE 95; RESP 22; TEMP 36.3; O2SAT 97
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
--- NOTE | 2024-05-27 13:59 | PC.NURSE ---
pt asleep, holding benadryl for now so not to wake her
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
[2024-05-27] MEDS: diphenhydrAMINE HCL 25 MG CAPSULE 50 MG PO (15:20)
--- NOTE | 2024-05-27 15:20 | PC.NURSE ---
pt woke up, acting erratically, flailing and resisting care. Pt was able to cooperate with heart tones - 142 heard on doppler. Per LEAD TELLER, give Benadryl to help calm pt while we wait for her to be cleared prior to contacting [facility]
--- NOTE | 2024-05-27 15:23 | PC.NURSE ---
pt needs to medically cleared beofre contacting [facility] as that is a requirement for them to come out. Per TELLER MANAGER pt is not cleared yet.
--- NOTE | 2024-05-27 18:32 | PC.NURSE ---
blood draw attempt unsuccessful, pt was moving during attempt and cannot sit still
--- NOTE | 2024-05-27 19:27 | PC.NURSE ---
Assumed care of this patient at 1900, patient sleeping soundly ontop of patient table. Jose birmingham at bedside monitoring patient safety. Labs still need to be obtained, patient difficult stick/not cooperative with care, provider Yohana aware.
--- NOTE | 2024-05-27 19:30 | MHC.EDTECH ---
Pt refused vital signs. RN Nohemy aware
--- NOTE | 2024-05-27 19:43 | MHC.EDTECH ---
This pct just assumed care of patient ,RN aware that Patient refusing all care and does not want to be touch .
[2024-05-27 19:53] VITALS: BP 98/43; PULSE 89; RESP 18; O2SAT 98
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
[2024-05-27 20:18] LABS: MANUAL DIFF FLAG NO
[2024-05-27 20:19] LABS: Basophils Percent Auto 0.4 % (0-2); Eosinophils Absolute Auto 0.3 X10*3/uL (0.0-0.4); Hematocrit 35.1 % (37.0-47.0); Hemoglobin 12.2 g/dl (12.0-16.0); Imm Gran Abs Auto 0.04 X10*3/uL (0.00-0.03); Imm Gran Pct Auto 0.6 % (0.0-0.4); Mean Corpuscular HGB Conc 34.8 g/dl (31.0-35.0); Mean Corpuscular Hemoglobin 32.2 pg (27.0-33.0); Mean Corpuscular Volume 92.6 fL (80.0-98.0); Mean Platelet Volume 9.2 fL (9.4-12.3); Monocytes Absolute Auto 1.2 X10*3/uL (0.1-1.2); Monocytes Percent Auto 17.6 % (2-11); Neutrophils Absolute Auto 3.4 x10*3/uL (2.0-8.3); Neutrophils Percent Auto 48.4 % (45-73); Platelet Count 188 X10*3/uL (160-400); Red Blood Count 3.79 X10*6/uL (4.20-5.50); Red Cell Distribution Width 12.8 % (11.0-16.0)
[2024-05-27 20:20] LABS: Appearance Urine Clear; Color Urine Dark Yellow; Glucose Urine UA Negative (Negative); Leukocyte Esterase Urine Negative (Negative); Nitrite Urine Negative (Negative); Specific Gravity - Urine 1.025 (1.005-1.025); Urine Blood Negative (Negative); Urine Ketones Negative (Negative); Urine Protein Trace mg/dL (Neg-Trace)
--- NOTE | 2024-05-27 20:23 | PC.NURSE ---
Labs obtained, UA/Utox sent, heart tones obtained, patient changed into [facility], environmental currently at bedside cleaning floor. Patient mostly cooperative with care, resting quietly on stretcher at this time.
[2024-05-27 20:30] LABS: Amphetamine Screen Urine Not Detected (Not Detect); Barbiturates, Urine Not Detected (Not Detect); Benzodiazepines Screen Urine Not Detected (Not Detect); Buprenorphine Scr Not Detected (Not Detect); Cannabinoid Screen Urine POSITIVE (Not Detect); Cocaine Screen Urine POSITIVE (Not Detect); Fentanyl, urine POSITIVE (Not Detect); Methadone Screen, Urine Positive (Not Detect); Opiate Screen Urine POSITIVE (Not Detect); Oxycodone Screen Urine Not Detected (Not Detect); Phencyclidine Screen Urine Not Detected (Not Detect)
[2024-05-27 20:32] LABS: Anion Gap 11 (12-20); Blood Urea Nitrogen 10 mg/dL (9-16); Calcium 7.9 mg/dL (8.4-10.2); Carbon Dioxide 24 mmol/L (22-29); Chloride 105 mmol/L (96-108); Creatinine Clr Calc Pharmacy 118.4; Estimated Glomerular Filt Rate > 60; Glucose Random 98 mg/dL (60-115); Potassium 3.7 mmol/L (3.3-5.1); Sodium 136 mmol/L (135-145)
[2024-05-27 21:58] VITALS: BP 103/61; PULSE 83; RESP 16; TEMP 36.8; O2SAT 97
--- NOTE | 2024-05-27 22:31 | MHC.CARE ---
CARE Team was able to wake the pt for a quick second and she appeared to still be feeling the narcotics she took earlier in the day, or she is extremely tired. Either way, the pt could not be engaged for an assessment at this time. CARE Team will attempt to meet with the pt at another time.
--- NOTE | 2024-05-27 22:53 | PC.NURSE ---
T/W spoke to provider Marcell. Pt is somnolent and wont stay awake long enough to hold conversation. Provider suggest to hold off on SA kit at this moment.
--- NOTE | 2024-05-28 01:17 | PC.NURSE ---
continues to rest quietly in room with even and unlabored respirations. no obvious signs/symptoms of distress noted. plan to hold off on SA kit until patient is more awake. patient observer remains in place
[2024-05-28 06:13] VITALS: BP 116/59; PULSE 82; RESP 16; TEMP 36.6; O2SAT 98
--- NOTE | 2024-05-28 09:47 | PC.NURSE ---
Patient is awake, requesting sandwich/food. Called kitchen to have food supply restocked, none available in ED fridge. Pt aware and will be provided food upon arrival. Given crackers at this time.
--- NOTE | 2024-05-28 11:25 | PC.NURSE ---
Pt states that she takes Methadone 10mg daily at [facility], last dose yesterday around 9am. Pt is also and taking vitamins. Louisa Dutta (recovery team RN) was at bedside recently and pt alerted Louisa about methadone as well. Awaiting approval for methadone to confirm dose.
[2024-05-28 11:32] VITALS: BP 111/61; PULSE 83; RESP 14; TEMP 36.9; O2SAT 98
--- NOTE | 2024-05-28 12:01 | HE.PHANOTE ---
RE: methadone Last dose 65mg at [facility], 05/27/24 @0922
[2024-05-28] MEDS: methADONE HCl 20 MG/2 ML ORAL.CONC 65 MG PO (12:29)
[2024-05-28 13:12] LABS: Alanine Aminotransferase 478 U/L (0-31); Albumin Level 3.4 g/dL (3.5-5.0); Alkaline Phosphatase 72 U/L (39-117); Aspartate Amino Transferase 333 U/L (5-31); Bilirubin Direct < 0.2 mg/dL (0.0-0.5); Bilirubin Total 0.2 mg/dL (0.0-1.0); HCG Quantitative 5268 mIU/mL; Total Protein 7.3 g/dL (6.5-8.0)
--- NOTE | 2024-05-28 14:56 | MHC.CARE ---
Case consult completed with Dr. Mcknight who is advocating for Section 35. T/w to complete Section 35.
--- NOTE | 2024-05-28 15:14 | MHC.CARE ---
Section 35 information faxed to [facility].
[2024-05-28 16:22] VITALS: BP 102/44; PULSE 73; RESP 18; TEMP 36.7; O2SAT 97
[2024-05-28 21:28] VITALS: BP 103/51; PULSE 80; RESP 18; TEMP 36.8; O2SAT 97
[2024-05-29 04:13] LABS: Syphilis Screen Nonreactive (Nonreactive)
[2024-05-29 04:48] LABS: HBS Num1 0.76 mIU/mL (0-7.99); HBsAGNum1 0.33 S/CO (0.00-0.99); Hepatitis B Surface Antigen Negative (Negative); ~Hepatitis B Surface Antibody NONREACTIVE (Nonreactive)
[2024-05-29 05:30] LABS: HIV AB/AG Nonreactive (Nonreactive); HIV Num 1 0.06 S/CO (0.00-0.99); ~HepC Num1 13.43 S/CO (0.00-0.79); ~Hepatitis C Antibody Reactive (Nonreactive)
[2024-05-29 05:43] VITALS: BP 110/59; PULSE 69; RESP 16; TEMP 37; O2SAT 98
--- NOTE | 2024-05-29 05:45 | PC.NURSE ---
PT resting quietly in no acute distress at this time. VSS. pt refused Doppler reading stating it was done yesterday, I'm and tired . Sitter at bedside. Plan for section 35, pt cleared by psych though. Sfatey precautions in place
--- NOTE | 2024-05-29 09:13 | MHC.CARE ---
Young signed and completed by Dr. Mcknight. Signed documentation sent to [facility].
[2024-05-29 09:43] VITALS: BP 115/56; PULSE 70; RESP 16; TEMP 36.1; O2SAT 97
--- NOTE | 2024-05-29 09:46 | PC.NURSE ---
patient in good mood this morning, ate breakfast and snack. patient heart tone done by this RN 155 bpm. patient VSS, respirations equal and unlabored, skin dry and intact. sitter with patient. patient provider and care hernandes working on sect 35 for patient, plan ongoing
--- NOTE | 2024-05-29 10:02 | PHA.MEDREC ---
Addendum entered by Mei Gray RPh 05/29/24 11:10: Reviewed by [facility] Original Note: Pharmacy Consult ? Medication Reconciliation Pharmacy has completed the medication reconciliation. spoke to patient and she confirmed her medications. Patient stated she is still taking Hydroxizine 25mg tab 3 tabs daily as needed for Anxiety, Mirtazapine 35mg 2 tablet as needed at bedtime, Melatonin 3mg 3 tabs as needed for sleep, Tylenol 500mg 2 tabs as needed for pain/headaches, and a Flovent inhaler that she did not seem confident in that she is still using it and did not know dosing or how she is taking it. I called [facility] pharmacy in [place] to confirm Hydroxyzine, Mirtazapine and Flovent and they confirmed she last filled Hydroxyzine 25mg tab 1 tab BID in 2021 but did state she has a script on file for 3 tabs TID from June 2023 that was never filled for picked up. They also confirmed she did have a Mirtazapine 30mg tabs 1 @ bedtime that was last filled June 2023 and for her Flovent that was last filled May 2023 for Flovent 220mcg 1 puff BID. I also asked patient if she was taking anything for pain thinking she would bring up the Methadone but patient only said she takes Tylenol only as needed for pain or headaches I asked if she uses anything narcotics for pain and she stated no, I kept it on the med list since we have a note she just recently got it. She stated that she has not taken her medications in about 2 days.
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
[2024-05-29 12:11] VITALS: BP 113/61; PULSE 81; RESP 16; TEMP 36.8; O2SAT 99
[2024-05-29] MEDS: methADONE HCl 20 MG/2 ML ORAL.CONC 65 MG PO (12:18)
--- NOTE | 2024-05-30 13:16 | MHC.CARE ---
Pt was comitted to [facility] for Section 35.
== END 2024-05-29 13:22 ==
PROVIDERS: Nurse Practitioner Family; Physician Assistant Medical; Emergency Provider Emergency Medicine
DX: O99.322 Drug use complicating pregnancy, second trimester (principal); O99.342 Other mental disorders complicating pregnancy, second trimester; T76.21XA Adult sexual abuse, suspected, initial encounter; F32.A Depression, unspecified; Z3A.24 24 weeks gestation of pregnancy; F11.20 Opioid dependence, uncomplicated; Z51.81 Encounter for therapeutic drug level monitoring; Z79.899 Other long term (current) drug therapy
CPT/HCPCS: 36415; 80048; 80076; 80307; 81003; 84702; 85025; 86706; 86780; 86803; 87340; 87389; 99284; 99285; S9485

== ENCOUNTER 2024-09-20 13:03 | Outpatient (REF) | payer OTHER, SELFPAY ==
--- OUTSIDE RECORDS SUMMARY | 2024-09-20 16:50 | XMS_ITS | Clinical Summary ---
Author Organization [facility] ity Address [address] [place] [address] Care Team Providers Care Felt Coverer Name Role Phone Unavailable Primary Care Provider Unavailabl e Social History Tobacco Use Types Packs/Day Years Used Date Smoking Tobacco: Never Assessed Sex and Gender Information Value Date Recorded Sex Assigned at Not on file Gender Identity Not on file Sexual Orientation Not on file Plan of Treatment Health Maintenance Due Date Last Done Comments DTaP,Tdap,and Td Vaccines (1 - Tdap) 02/20/2016 Hepatitis B Vaccines (1 of 3 - 19+ 3-dose series) 02/20/2016 Cervical Cancer Screening: P ap Smear 2018 Depression Screening 07/25/2022 HIV Screening 07/25/2022 Hepatitis C Screening 07/25/2022 Social Influencers of Health Screening 07/25/2022 COVID-19 Vaccine ( - 2023-2 5 season) 2024 Influenza Vaccine (#1) 2024 HIB Vaccines Aged Out No longer eligi ble based on patient's age to complete this topic HPV Vaccines Aged Out No longer eligi ble based on patient's age to complete this topic Hepatitis A Vaccines Aged Out No long er eligible based on patient's age to complete this topic IPV Vaccines Aged Out No longer eligi ble based on patient's age to complete this topic MMR Vaccines Aged Out No longer eligi ble based on patient's age to complete this topic Meningococcal ACWY Vaccine Aged Out N o longer eligible based on patient's age to complete this topic Pneumococcal Vaccine: Pediat rics (0 to 5 Years) and At-Risk Patients (6 to 64 Years) Aged Out No longer eligible b ased on patient's age to complete this topic RSV Immunization Patients Un shadia 20 months Aged Out No longer eligible b ased on patient's age to complete this topic Varicella Vaccines Aged Out No longer eligible based on patient's age to complete this topic
--- OUTSIDE RECORDS SUMMARY | 2024-09-20 16:50 | XMS_ITS | Clinical Summary ---
Author Organization [facility] [employer] Address [address] [place] [address] [address] [place] [address] Care Team Providers Care And Taxi Instructor Bus Trolley Name Role Phone Unavailable Primary Care Provider Unavailabl e Social History Tobacco Use Types Packs/Day Years Used Date Smoking Tobacco: Never Assessed Comments Unknown Sex and Gender Information Value Date Recorded Sex Assigned at Female 06/21/2022 10:35 AM EDT Legal Sex Female 10:35 AM EDT Gender Identity Female 06/21/2022 10:35 AM EDT Sexual Orientation Choose not to disclose 2021 10:35 AM EDT Plan of Treatment Health Maintenance Due Date Last Done Comments Dental Prophylaxis 1997 Depression Screening 1997 HIV Screening 1997 SDOH Screening 1997 Alcohol/Substance Use Screening 2009 Tobacco Screening 2009 Family Planning (PISQ) 02/20/2012 Hepatitis A Vaccines (1 of 2 - Risk 2-dose series) 02/20/2016 Pap Smear 2018 Dental Oral Exam 11/07/2019 05/08/2019 Dental X-Ray: Bitewings 05/09/2020 05/08/2019 Dental X-Ray: Full Mouth 05/09/2022 05/08/2019 COVID-19 Vaccine ( season) 2024 08/05/2023, 08/10/2022, 04/16/2021 Influenza Vaccine (#1) 2024 07/27/2023, 2016 DTaP/Tdap/Td Vaccines (9 - Td or Tdap) 02/08/2027 02/08/2017, 04/20/2010, 03/06/2009, Additional history exists Zoster Vaccines (1 of 2) 2047 03/29/2008, 01/1999 RSV Patients and Patients Aged 60 years or older (1 - 1-dose 75+ series) 02/20/2072 HIB Vaccines Completed 05/26/1998, 11/1997, 1997, Additional history exists IPV Vaccines Completed 03/07/2001, 08/22, 1997, Additional history exists HPV Vaccines Completed 02/20/2010, 04/22, 03/06/2009 Meningococcal Vaccine Aged Out 04/20/2010, 009 No longer eligible based on patient's age to complete this topic Hepatitis B Vaccines Completed 02/16/2020, 02/29/2012, 2011, Additional history exists Pneumococcal Vaccine: Pediatrics (0 to 5 Years) and At-Risk Patients (6 to 49) Years) Aged Out No longer eligible based on patient's age to complete this topic RSV under 20 months Aged Out No longe r eligible based on patient's age to complete this topic Rotavirus Vaccines Aged Out No longer eligible based on patient's age to complete this topic Procedures Procedure Name Priority Date/Time Associated Diagnosis Comments DIAGNOSTIC - DIAGNOSTIC IMAGING - INTRAORAL - COMPREHENSIVE SERIES OF RADIOGRAPHIC IMAGES Routine 05/08/2019 12:00 AM EDT COMPREHENSIVE ORAL EVALUATION - NEW OR ESTABLISHED PATIENT Routine 05/08/2019 12:00 AM EDT from Last 3 Months or Most Recently Relevant to Health Maintenance [place] [address] [address] [place] [address] [id number] [place] [address] [employer] [facility] MEDICAID STAND ADULT
--- NOTE | 2024-09-21 15:25 | MHC.AU.HA1 ---
Hearing Aid Evaluation Date of Visit: 09/20/24 Historical Information: Description of Hearing: Within normal to 1kHz sloping to severe and rising to moderate sensorineural hearing loss, bilateral. Current personal amplification information, if applicable: Last wore Phonak Bolero V50 M hearing aids, lost about five years ago. Summary: Christina is a long time hearing aid user with congenital hearing loss. She lost her last pair of aids about five years ago and has had difficulty getting seen to replace them due to lack of a PCP. She reports frustration without hearing aids. Recommended RITE style. Christina selected rechargeable. She has an Android phone that she may want to pair with the hearing aids. Hearing Aid Prescription: Based on the individual?s shared listening needs, communication environments, dexterity, desire for connectivity, and personal preferences, the following prescription for amplification has been made: Right ear: Make, Model, Color: Phonak Audeo I 50 R sand beige Battery Size: Rechargeable Clinical Trial Manager/Slim Tube: 1 M Type of Earmold/Dome/CShell/SlimTip: cap Left ear: Make, Model, Color: Phonak Audeo I 50 R sand beige Battery Size: Rechargeable Clinical Trial Manager/Slim Tube: 1 M Type of Earmold/Dome/CShell/SlimTip: cap Plan of Care: Patient wishes to purchase hearing aids as prescribed Action Taken/Action Needed: Medical Clearance to be requested from PCP/ENT Hearing Instrument Fitting to be scheduled when materials arrive Primary Diagnosis: H90.3 Bilateral Sensorineural Hearing Loss Signature: Provider: Teresa Van, [facility]
== END 2024-09-20 13:04 | disposition home or self-care (01) ==
LOC: HO.SH 13:03
PROVIDERS: Visit Provider Obstetrics & Gynecology
DX: Z01.118 Encounter for examination of ears and hearing with other abnormal findings (principal); Z46.1 Encounter for fitting and adjustment of hearing aid; H90.3 Sensorineural hearing loss, bilateral
CPT/HCPCS: 92557; 92567; 92591

== ENCOUNTER 2024-11-12 14:52 | Outpatient (REF) | payer OTHER, SELFPAY ==
--- NOTE | 2024-11-12 16:14 | MHC.AU.HA2 ---
Hearing Instrument Fitting- Adult- Binaural Date of Visit: 11/12/24 Hearing Instruments Dispensed: Right Ear: Make, Model, Color, Serial Number: Phonak Audeo I 50 R mariano hernandez S#[id number] [employer] Agent Repair Warranty: 11/25/2027 Insurance And Financial Services Agent Loss and Damage Warranty: 11/25/2027 [facility] Service Plan: 11/12/25 Battery Size: Rechargeable Mineral Technologist/Slim Tube: 1 M Earmold/Dome/CShell/SlimTip: cap Type of Wax Guard: Cerustop Left Ear: Make, Model, Color, Serial Number: Phonak Audeo I 50 R mariano hernandez S#[id number] Insurance And Financial [employer] Agent Repair Warranty: 11/25/2027 Insurance And Financial Services Agent Loss and Damage Warranty: 11/25/2027 [facility] Service Plan: 11/12/25 Battery Size: Rechargeable Mineral Technologist/Slim Tube: 1 M Earmold/Dome/CShell/SlimTip: cap Type of Wax Guard: Cerustop Accessories/Assistive Technology: Phonak Complaint Inspector AUBREE S#[id number] Summary of Fitting: Fit with and oriented to binaural Phonak Audeo I 50 R HAs. Verified to [facility] adult 5 targets. Did not run MPO as Christina was holding her during verification. Previous hearing aid user. Reviewed charging, maintenance, precautions. Practiced insertion and removal. Receivers are a little long and snug in canals even with cap dome. Christina reported they felt okay and secure enough to wear for now. Good subjective comfort and benefit reported. Ordering 0S receivers to swap to at follow up. Advised to pause hearing aid use if retention concerns arise between fitting and follow up. Not paired with a phone at this time. Recommendations: Recommendations: Hearing instrument care and maintenance were discussed and practiced. A hearing instrument follow-up was scheduled. Diagnosis Code(s): Primary Diagnosis: H90.3 Bilateral Sensorineural Hearing Loss Signature: Provider: Teresa Van, [facility]
--- OUTSIDE RECORDS SUMMARY | 2024-11-12 17:46 | XMS_ITS | Clinical Summary ---
Author Organization [facility] ity Address [address] [place] [address] Care Team Providers Care Carpet Binder Name Role Phone Unavailable Primary Care Provider Unavailabl e Social History Tobacco Use Types Packs/Day Years Used Date Smoking Tobacco: Never Assessed Comments Unknown Sex and Gender Information Value Date Recorded Sex Assigned at Not on file Legal Sex Female 12:07 AM EST Gender Identity Not on file Sexual Orientation Not on file Plan of Treatment Health Maintenance Due Date Last Done Comments DTaP,Tdap,and Td Vaccines (1 - Tdap) 02/20/2016 Hepatitis B Vaccines (1 of 3 - 19+ 3-dose series) 02/20/2016 Cervical Cancer Screening: P ap Smear 2018 HIV Screening 07/25/2022 COVID-19 Vaccine (2023-2 5 season) 2024 Influenza Vaccine (#1) 2024 [...] patient's age to complete this topic Meningococcal B Vacine Aged Out No lo nger eligible based on patient's age to complete [...]
--- OUTSIDE RECORDS SUMMARY | 2024-11-12 17:46 | XMS_ITS | Clinical Summary ---
Author Organization [facility] [employer] Address [address] [place] [address] [address] [place] [address] Care Team Providers Care Barrel Turner Name Role Phone Unavailable Primary Care Provider [...] Procedure Name Priority Date/Time Associated Diagnosis Comments INTRAORAL - COMPLETE SERIES OF RADIOGRAPHIC IMAGES Routine 05/08/2019 12:00 AM EDT COMPREHENSIVE ORAL EVALUATION - NEW OR ESTABLISHED PATIENT Routine 05/08/2019 12:00 AM EDT from Last 3 Months or Most Recently Relevant to Health Maintenance Insurance [facility] STAND ADULT
== END 2024-11-12 14:53 | disposition home or self-care (01) ==
LOC: HO.HAP 14:52
PROVIDERS: Visit Provider Obstetrics & Gynecology
DX: Z46.1 Encounter for fitting and adjustment of hearing aid (principal); H90.3 Sensorineural hearing loss, bilateral
CPT/HCPCS: V5011; V5020; V5160; V5261

== ENCOUNTER 2024-12-04 11:03 | Outpatient (REF) | payer OTHER, SELFPAY ==
--- OUTSIDE RECORDS SUMMARY | 2024-12-04 13:32 | XMS_ITS | Clinical Summary ---
Author Organization [facility] [employer] Address [address] [place] [address] [address] [place] [address] Care Team Providers Care Fuel Cell Systems Engineer Name Role Phone Unavailable Primary Care Provider [...] Recently Relevant to Health Maintenance Insurance [facility] STAND ADULT
--- OUTSIDE RECORDS SUMMARY | 2024-12-04 13:32 | XMS_ITS | Clinical Summary ---
Author Organization [facility] ity Address [address] [place] [address] Care Team Providers Care Information Technology Intern Name Role Phone Unavailable Primary Care Provider [...] Cervical Cancer Screening: P ap Smear 2018 COVID-19 Vaccine ( - 2023-2 5 season) 2024 Influenza Vaccine (Season Ended) 2025 HIB Vaccines Aged Out No longer eligi [...] age to complete this topic Meningococcal B Vaccine Aged Out No l onger eligible based on patient's age to complete [...]
--- NOTE | 2024-12-05 08:47 | MHC.AU.HA3 ---
Hearing Instrument Follow-Up- Binaural Date of Visit: 12/04/24 Right Ear: Ramo, , Color, Serial Number: Fer Ambrosio I 50 R mariano hernandez S#[id number] Nipple Maker Repair Warranty: 11/25/2027 Nipple Maker Loss and Damage Warranty: 11/25/2027 [facility] Service Plan: 11/12/25 Battery Size: Rechargeable Gardening Supervisor/Slim Tube: 0 S Earmold/Dome/CShell/SlimTip:cap Type of Wax Guard: Cerustop Dispensed By: [facility] Date of Fittin10/30/24 Left Ear: Ramo, Model, Color, Serial Number: Fer Ambrosio I 50 R mariano hernandez [id number] Nipple Maker Repair Warranty: 11/25/2027 Nipple Maker Loss and Damage Warranty: 11/25/2027 [facility] Service Plan: 11/12/25 Battery Size: Rechargeable Gardening Supervisor/Slim Tube: 0S Earmold/Dome/CShell/SlimTip: cap Type of Wax Guard: Cerustop Dispensed By: [facility] Date of Fittin10/30/24 Follow-Up Summary: Seen for follow up. Reports good satisfaction with the new hearing aids. Size 1 wires were slightly long, swapped out for 0S wires today, improved fit and comfort reported. Recommendations: Recommendations: Hearing instrument follow-up or maintenance as needed. Diagnosis Code(s): Primary Diagnosis: H90.3 Bilateral Sensorineural Hearing Loss Signature: Provider: Teresa Van, [facility]
== END 2024-12-04 11:04 | disposition home or self-care (01) ==
LOC: HO.HAP 11:03
DX: Z13.89 Encounter for screening for other disorder (principal)